=== PATIENT | female | born 1960 | race Caucasian/White ===

== ENCOUNTER 2020-05-15 09:53 | Outpatient (REF) | payer MEDICARE, MEDICAID, SELFPAY ==
[2020-05-15 13:34] LABS: MANUAL DIFF FLAG NO
[2020-05-15 13:46] LABS: Basophils Absolute Auto 0.1 X10*3/uL (0.0-0.2); Basophils Percent Auto 1.1 % (0-2); Eosinophils Absolute Auto 0.4 X10*3/uL (0.0-0.4); Eosinophils Percent Auto 5.6 % (0-4); Hematocrit 42.8 % (37-47); Hemoglobin 14.1 g/dl (12.0-16.0); Imm Gran Abs Auto 0.02 X10*3/uL (0.00-0.03); Imm Gran Pct Auto 0.3 % (0.0-0.4); Lymphocytes Absolute Auto 2.1 X10*3/uL (1.2-4.9); Mean Corpuscular HGB Conc 32.9 g/dl (31.0-35.0); Mean Corpuscular Hemoglobin 29.3 pg (27.0-33.0); Mean Platelet Volume 10.9 fL (9.4-12.3); Monocytes Absolute Auto 0.3 X10*3/uL (0.1-1.2); Monocytes Percent Auto 5.2 % (2-11); Neutrophils Absolute Auto 3.3 X10*3/uL (2.0-8.3); Neutrophils Percent Auto 53.8 % (45-73); Platelet Count 226 X10*3/uL (160-400); Red Blood Count 4.81 X10*6/uL (4.20-5.50); Red Cell Distribution Width 13.3 % (11.0-16.0); White Blood Count 6.2 X10*3/uL (4.8-10.8)
[2020-05-15 14:19] LABS: Amylase 89 U/L (28-100)
== END 2020-05-15 09:54 | disposition home or self-care (01) ==
LOC: HO.10HDL 09:53
PROVIDERS: Visit Provider Internal Medicine
DX: R59.0 Localized enlarged lymph nodes (principal)
CPT/HCPCS: 36415; 82150; 85025; 86140

== ENCOUNTER 2020-06-17 14:04 | Outpatient (REF) | payer MEDICARE, MEDICAID, SELFPAY ==
[2020-06-17 14:59] LABS: Influenza A PCR NEGATIVE (Negative); Influenza B PCR NEGATIVE (Negative); Resp Syncy Virus RNA Qual PCR NEGATIVE (Negative); SARS COV2 PCR INHOUSE NEGATIVE (Negative)
== END 2020-06-17 14:05 | disposition home or self-care (01) ==
LOC: HO.LNP 14:04
PROVIDERS: Visit Provider Internal Medicine
DX: Z20.828 Contact with and (suspected) exposure to other viral communicable diseases (principal); R07.9 Chest pain, unspecified; R05 Cough; M79.10 Myalgia, unspecified site
CPT/HCPCS: 0241U

== ENCOUNTER 2020-06-18 12:31 | Outpatient (REF) | payer MEDICARE, MEDICAID, SELFPAY ==
--- NOTE | 2020-06-18 12:38 | XR_ITS ---
EXAMINATION: XR CHEST CLINICAL INFORMATION: Chest pain, coughing. COMPARISON: None TECHNIQUE: 2 views of the chest were obtained. FINDINGS: No significant abnormality is noted involving the heart, lungs, mediastinum, bony thorax or soft tissues. XR/XR chest 2V IMPRESSION: Unremarkable chest examination.
== END 2020-06-18 12:32 | disposition home or self-care (01) ==
LOC: HO.XRAY 12:31
PROVIDERS: PCP Internal Medicine; Visit Provider Internal Medicine
DX: R07.9 Chest pain, unspecified (principal); R05 Cough
CPT/HCPCS: 71046

== ENCOUNTER 2020-06-24 10:42 | Outpatient (REF) | payer MEDICARE, MEDICAID, SELFPAY | END 2020-06-24 10:43 | disposition home or self-care (01) | LOC: HO.LNP 10:42 | PROVIDERS: Visit Provider Internal Medicine | DX: Z20.828 Contact with and (suspected) exposure to other viral communicable diseases (principal) | CPT/HCPCS: U0003 ==

== ENCOUNTER 2020-07-09 10:29 | Outpatient (REF) | payer MEDICARE, MEDICAID, SELFPAY ==
[2020-07-10 09:31] LABS: BV Int Neg Control Negative (Negative); BV Int Pos Control Positive (Positive)
== END 2020-07-09 10:30 | disposition home or self-care (01) ==
LOC: HO.LAB 10:29
PROVIDERS: PCP Internal Medicine; Visit Provider Obstetrics & Gynecology
DX: Z01.419 Encounter for gynecological examination (general) (routine) without abnormal findings (principal); N84.1 Polyp of cervix uteri; B96.89 Other specified bacterial agents as the cause of diseases classified elsewhere; N76.0 Acute vaginitis
CPT/HCPCS: 87480; 87510; 87660; 88305

== ENCOUNTER → 2020-07-16 11:20 | Outpatient (BNVA) | payer MEDICARE, MEDICAID, SELFPAY | PROVIDERS: PCP Internal Medicine; Visit Provider Obstetrics & Gynecology | DX: Z13.89 Encounter for screening for other disorder (principal) | CPT/HCPCS: Q3014 ==

== ENCOUNTER → 2020-07-29 10:57 | Outpatient (BNVA) | payer MEDICARE, MEDICAID, SELFPAY | PROVIDERS: PCP Internal Medicine; Visit Provider Obstetrics & Gynecology | DX: N95.0 Postmenopausal bleeding (principal) | CPT/HCPCS: 99212 ==

== ENCOUNTER 2020-08-05 11:11 | Outpatient (REF) | payer MEDICARE, MEDICAID, SELFPAY ==
--- NOTE | ~2020-08-05 | US_ITS ---
EXAMINATION: PELVIC ULTRASOUND CLINICAL INFORMATION: Postmenopausal bleeding COMPARISON: Previous pelvic ultrasound September [address] of the abdomen and pelvis January 2020 TECHNIQUE: Transabdominal and transvaginal pelvic ultrasound was performed. Transvaginal exam was performed for better visualization of the uterus and ovaries. FINDINGS: The uterus is anteverted and measures 7.2 x 3 x 4.7 cm in dimension. There is a 1 x 0.8 x 0.9 cm hypoechoic lesion in the left uterine body suggestive of an intramural fibroid. No other focal uterine lesion is seen. Endometrial thickness is normal estimated at 0.1 cm. The ovaries are normal-appearing. The right ovary measures 1.8 x 1.9 x 1.2 cm in the left ovary measures 1.3 x 1.5 x 1.1 cm. There is no fluid in the pelvis. US/US pelvic complete IMPRESSION: Small stable uterine fibroid. Normal thickness endometrium. Normal-appearing ovaries.
--- NOTE | ~2020-08-05 | US_ITS ---
EXAMINATION: PELVIC ULTRASOUND CLINICAL INFORMATION: Postmenopausal bleeding COMPARISON: Previous pelvic ultrasound September [address] of the abdomen and pelvis January 2020 TECHNIQUE: Transabdominal and transvaginal pelvic ultrasound was performed. Transvaginal exam was performed for better visualization of the uterus and ovaries. FINDINGS: The uterus is anteverted and measures 7.2 x 3 x 4.7 cm in dimension. There is a 1 x 0.8 x 0.9 cm hypoechoic lesion in the left uterine body suggestive of an intramural fibroid. No other focal uterine lesion is seen. Endometrial thickness is normal estimated at 0.1 cm. The ovaries are normal-appearing. The right ovary measures 1.8 x 1.9 x 1.2 cm in the left ovary measures 1.3 x 1.5 x 1.1 cm. There is no fluid in the pelvis. US/US transvaginal IMPRESSION: Small stable uterine fibroid. Normal thickness endometrium. Normal-appearing ovaries.
== END 2020-08-05 11:12 | disposition home or self-care (01) ==
LOC: HO.US 11:11
PROVIDERS: PCP Internal Medicine; Visit Provider Obstetrics & Gynecology
DX: N95.0 Postmenopausal bleeding (principal)
CPT/HCPCS: 76830; 76856

== ENCOUNTER → 2020-08-20 11:36 | Outpatient (BNVA) | payer MEDICARE, MEDICAID, SELFPAY | PROVIDERS: PCP Internal Medicine; Visit Provider Obstetrics & Gynecology | CPT/HCPCS: Q3014 ==

== ENCOUNTER 2021-04-07 10:40 | Outpatient (REF) | payer OTHER, MEDICARE, MEDICAID, SELFPAY ==
--- NOTE | ~2021-04-07 | XR_ITS ---
EXAMINATION: XR CERVICAL SPINE CLINICAL INFORMATION: Neck and right arm pain. COMPARISON: None TECHNIQUE: 6 views of the cervical spine, inclusive of flexion and extension views, were obtained. FINDINGS: There is straightening of the normal cervical lordosis with normal spinal alignment. Mild to moderate multilevel degenerative changes are seen most pronounced at C5-C6 and C6-C7 with disc space narrowing and marginal osteophyte formation. Mild bilateral neural foraminal narrowing is seen from C4-C5 to C6-C7. The facet joints are unremarkable. There is no acute fracture. The odontoid process is intact. The spinous processes are intact. The prevertebral soft tissues are unremarkable. XR/XR cervical spine min 6V IMPRESSION: 1. Straightening of the normal cervical lordosis may be secondary to positioning and/or muscle spasm. 2. Mild to moderate multilevel spondylosis without overt acute abnormality.
== END 2021-04-07 10:41 | disposition home or self-care (01) ==
LOC: HO.XRAY 10:40
PROVIDERS: PCP Internal Medicine; Visit Provider Internal Medicine
DX: M54.2 Cervicalgia (principal)
CPT/HCPCS: 72052

== ENCOUNTER 2021-04-10 07:19 | Outpatient (REF) | payer OTHER, MEDICARE, MEDICAID, SELFPAY ==
--- NOTE | ~2021-04-10 | MR_ITS ---
EXAMINATION: MR CERVICAL SPINE WITHOUT CONTRAST CLINICAL INFORMATION: Radiculopathy. Right upper extremity pain. Abnormal radiograph. COMPARISON: Cervical spine radiographs 04/07/2021. TECHNIQUE: MRI of the cervical spine was obtained using routine sequences without contrast. FINDINGS: There is nonspecific straightening of the cervical lordosis. Alignment is otherwise normal. Vertebral body heights are preserved. No acute bone marrow signal changes. There is no well marginated intraosseous hemangioma of the C6 vertebral body. Bone marrow signal intensity is otherwise unremarkable. There is slight loss of intervertebral disc height and T2 signal intensity at multiple levels related to disc degeneration. There is no cord compression or abnormal intramedullary signal changes. The cervicomedullary junction are normal. No acute bone marrow signal changes. The occipital condyles and lateral C1 masses are intact. There is degenerative arthrosis of the atlantodental joint. C1-C2 articular facets are unremarkable. At C2-C3 the annular contour is normal. No canal or neuroforaminal compromise. At C3-C4 the annular contour is normal. No canal or neuroforaminal compromise. At C4-C5 there is a small central protrusion superimposed upon a bulging disc. No canal stenosis. Uncovertebral joint spurring causes mild right neuroforaminal encroachment. At C5-C6 there is a bulging disc. Mild canal stenosis. Uncovertebral joint spurring and facet degenerative change causes mild bilateral neuroforaminal encroachment. At C6-C7 there is a bulging disc. Mild canal stenosis. Uncovertebral joint spurring and facet degenerative change causes mild to moderate bilateral neuroforaminal encroachment. At C7-T1 the annular contour is normal. No canal or neuroforaminal compromise. Visualized soft tissues of the neck are unremarkable. MR/MR cervical spine wo con IMPRESSION: There is multilevel degenerative spondylosis of the cervical spine. Mild canal stenosis at C5-C6 and C6-C7. No cord compression or abnormal intramedullary signal changes. There are varying degrees of neuroforaminal encroachment related to uncovertebral joint spurring and facet degenerative change as described above.
== END 2021-04-10 07:20 | disposition home or self-care (01) ==
LOC: HO.MRI 07:19
PROVIDERS: Visit Provider Internal Medicine
DX: M54.12 Radiculopathy, cervical region (principal); R93.7 Abnormal findings on diagnostic imaging of other parts of musculoskeletal system
CPT/HCPCS: 72141

== ENCOUNTER 2021-04-14 12:42 | Outpatient (REF) | payer MEDICARE, MEDICAID, SELFPAY ==
--- NOTE | ~2021-04-14 | MM_ITS ---
EXAMINATION: MM SCREENING DIGITAL BREAST TOMOSYNTHESIS, BILATERAL CLINICAL INFORMATION: Screening. Asymptomatic. The lifetime risk of breast cancer based on the Tyrer-Cuzick Model is 11%. COMPARISON: Mammography: 03/05/2020, 02/28/2019, 02/18/2018 TECHNIQUE: Digital breast tomosynthesis is performed in both the craniocaudal and mediolateral oblique views along with computer-aided detection (CAD). Synthesized 2D images are generated from the tomosynthesis. FINDINGS: There are scattered areas of fibroglandular density (ACR BI-RADS breast composition Category b). There are no significant masses, abnormal calcifications, or other abnormalities. There is no architectural abnormality or developing density. Parenchymal pattern is similar to prior studies. The skin contours are smooth. MM/MM tomosynthesis screening BI IMPRESSION: No mammographic evidence of malignancy. ASSESSMENT: BI-RADS 1: Negative RECOMMENDATION: Routine annual mammography screening. This patient's information was entered into a reminder system with a target due date for their next mammogram.
== END 2021-04-14 12:43 | disposition home or self-care (01) ==
LOC: HO.MAMMO 12:42
PROVIDERS: Visit Provider Internal Medicine
DX: Z12.31 Encounter for screening mammogram for malignant neoplasm of breast (principal)
CPT/HCPCS: 77063; 77067

== ENCOUNTER 2021-05-29 09:38 | Outpatient (REF) | payer MEDICARE, MEDICAID, SELFPAY ==
--- NOTE | ~2021-05-29 | MM_ITS ---
EXAMINATION: BONE DENSITOMETRY CLINICAL INDICATION: Postmenopausal. COMPARISON: This is the patient's baseline examination. TECHNIQUE: Using a Peer5 DXA System (software version: 13.1) manufactured by [employer], dual-energy x-ray absorptiometry was performed of the lumbar spine and left hip. The images are of good technical quality. Summary results are attached. FINDINGS: AP SPINE L1-L4: BMD 1.287 g/cm2, Z-score 1.6, T-score 0.9, normal. LEFT FEMUR, NECK: BMD 0.998 g/cm2, Z-score 0.6, T-score -0.3, normal. LEFT FEMUR, TOTAL: BMD 1.050 g/cm2, Z-score 0.9, T-score 0.3, normal. IDENTIFIED RISK FACTORS: Secondary osteoporosis, menopause. HISTORY OF FRACTURE: None listed. MEDICATIONS: Vitamin D. MM/XR DEXA axial skeleton IMPRESSION: 1. DIAGNOSIS: Normal bone density based on the lowest T-score value of -0.3 in the femoral neck applying World Health Organization criteria. 2. 10-YEAR FRACTURE RISK PREDICTION, FRAX: Major osteoporotic fracture (clinical spine, forearm, hip or shoulder) 5.9%. Hip fracture 0.2%. 3. Treatment Recommendations: NOF guidelines recommend consideration for treatment in postmenopausal women and men age 50 and older presenting with the following: -A hip or vertebral (clinical or morphometric) fracture. -T-score less than or equal to -2.5 at the femoral neck or spine after appropriate evaluation to exclude secondary causes. -Low bone mass at the hip or spine and a 10-year fracture probability by FRAX of greater than or equal to 3% for hip fracture or greater than or equal to 20% for major osteoporotic fracture based on the [place] adapted WHO algorithm. 4. Other Recommendations: All treatment decisions require clinical judgment and consideration of individual patient factors, including patient preferences, comorbidities, previous drug use, risk factors not captured in the FRAX model (e.g. frailty, falls, vitamin D deficiency, increased bone turnover, interval significant decline in bone density) and possible under or overestimation of fracture risk by FRAX. FUTURE SCAN RECOMMENDATION: People with diagnosed cases of osteoporosis or at high risk for fracture should have regular bone mineral density tests. For patients eligible for Medicare, routine testing is allowed once every 2 years. The testing frequency can be increased to one year for patients who have rapidly progressing disease, those who are receiving or discontinuing medical therapy to restore bone mass, or have additional risk factors.
== END 2021-05-29 09:39 | disposition home or self-care (01) ==
LOC: HO.MAMMO 09:38
PROVIDERS: Visit Provider Internal Medicine
DX: Z13.820 Encounter for screening for osteoporosis (principal); M85.80 Other specified disorders of bone density and structure, unspecified site; Z78.0 Asymptomatic menopausal state; N95.0 Postmenopausal bleeding; Z79.899 Other long term (current) drug therapy
CPT/HCPCS: 77080

== ENCOUNTER → 2021-07-15 10:00 | Outpatient (BNVA) | payer MEDICARE, MEDICAID, SELFPAY | PROVIDERS: PCP Internal Medicine; Visit Provider Advanced Practice Midwife ==

== ENCOUNTER 2021-08-25 08:34 | Outpatient (REF) | payer MEDICARE, MEDICAID, SELFPAY ==
[2021-08-25 10:22] LABS: MANUAL DIFF FLAG NO
[2021-08-25 10:41] LABS: Alanine Aminotransferase 19 U/L (0-31); Albumin Level 4.4 g/dL (3.5-5.0); Alkaline Phosphatase 126 U/L (39-117); Anion Gap 14 (12-20); Aspartate Amino Transferase 16 U/L (5-31); Bilirubin Total 0.2 mg/dL (0.0-1.0); Blood Urea Nitrogen 15 mg/dL (9-16); Calcium 9.4 mg/dL (8.4-10.2); Carbon Dioxide 24 mmol/L (22-29); Chloride 107 mmol/L (96-108); Cholesterol 297 mg/dL; Estimated Glomerular Filt Rate 55; Glucose Fasting 104 mg/dL (60-99); HDL Cholesterol 49 mg/dL; LDL Cholesterol Calculated 210 mg/dl; Potassium 4.5 mmol/L (3.3-5.1); Sodium 140 mmol/L (135-145); Total Protein 7.1 g/dL (6.5-8.0); Triglycerides 193 mg/dL
[2021-08-25 10:56] LABS: Basophils Absolute Auto 0.1 X10*3/uL (0.0-0.2); Basophils Percent Auto 1.2 % (0-2); Eosinophils Absolute Auto 0.5 X10*3/uL (0.0-0.4); Eosinophils Percent Auto 6.9 % (0-4); Free T4 (Free Thyroxine) 0.67 ng/dL (0.71-1.85); Hematocrit 43.7 % (37.0-47.0); Hemoglobin 14.4 g/dl (12.0-16.0); Imm Gran Abs Auto 0.01 X10*3/uL (0.00-0.03); Imm Gran Pct Auto 0.1 % (0.0-0.4); Lymphocytes Absolute Auto 2.9 X10*3/uL (1.2-4.9); Mean Corpuscular Hemoglobin 30.1 pg (27.0-33.0); Mean Corpuscular Volume 91.2 fL (80.0-98.0); Mean Platelet Volume 10.8 fL (9.4-12.3); Monocytes Absolute Auto 0.4 X10*3/uL (0.1-1.2); Monocytes Percent Auto 5.4 % (2-11); Neutrophils Absolute Auto 3.5 x10*3/uL (2.0-8.3); Neutrophils Percent Auto 47.4 % (45-73); Platelet Count 242 X10*3/uL (160-400); Red Blood Count 4.79 X10*6/uL (4.20-5.50); Thyroid Stimulating Hormone 62.49 uIU/mL (0.32-4.0); White Blood Count 7.4 X10*3/uL (4.8-10.8)
== END 2021-08-25 08:35 | disposition home or self-care (01) ==
LOC: HO.10HDL 08:34
PROVIDERS: Visit Provider Internal Medicine
DX: E03.9 Hypothyroidism, unspecified (principal); E78.00 Pure hypercholesterolemia, unspecified; M19.90 Unspecified osteoarthritis, unspecified site; K21.9 Gastro-esophageal reflux disease without esophagitis
CPT/HCPCS: 36415; 80053; 80061; 84439; 84443; 85025

== ENCOUNTER 2021-09-19 10:05 | Outpatient (REF) | payer MEDICARE, MEDICAID, SELFPAY ==
[2021-09-19 11:33] LABS: Free T4 (Free Thyroxine) 2.07 ng/dL (0.71-1.85)
[2021-09-20 10:27] LABS: Triiodothyronine T3 Free 5.2 pg/mL (2.3-4.2)
== END 2021-09-19 10:06 | disposition home or self-care (01) ==
LOC: HO.LAB 10:05
PROVIDERS: PCP Internal Medicine; Visit Provider Internal Medicine
DX: E03.9 Hypothyroidism, unspecified (principal)
CPT/HCPCS: 36415; 84439; 84443; 84481

== ENCOUNTER 2021-11-21 11:43 | Outpatient (REF) | payer MEDICARE, MEDICAID, SELFPAY ==
--- NOTE | ~2021-11-21 | XR_ITS ---
EXAMINATION: XR ELBOW, RIGHT CLINICAL INFORMATION: Fall rule out fracture COMPARISON: None TECHNIQUE: AP, lateral, and oblique views of the right elbow. FINDINGS: Mildly displaced intra-articular fracture of the radial head. Positive anterior sail sign and posterior fat pad sign confirming the fracture. There are no other fractures or dislocation. XR/XR elbow RT min 3V IMPRESSION: Mildly displaced intra-articular radial head fracture. (Referring physician staff is being called, to be alerted of the above findings and recommendations.) JR
[2021-11-21 14:08] LABS: Free T4 (Free Thyroxine) 1.51 ng/dL (0.71-1.85); Thyroid Stimulating Hormone 0.01 uIU/mL (0.32-4.0)
== END 2021-11-21 11:44 | disposition home or self-care (01) ==
LOC: HO.XRAY 11:43
PROVIDERS: PCP Internal Medicine; Visit Provider Internal Medicine
DX: E03.9 Hypothyroidism, unspecified (principal); M79.601 Pain in right arm; Z91.81 History of falling
CPT/HCPCS: 36415; 73080; 84439; 84443

== ENCOUNTER → 2021-11-26 12:49 | Outpatient (BNVA) | payer MEDICARE, MEDICAID, SELFPAY | PROVIDERS: PCP Internal Medicine; Visit Provider Physician Assistant | DX: S52.121D Displaced fracture of head of right radius, subsequent encounter for closed fracture with routine healing (principal) | CPT/HCPCS: 99202 ==

== ENCOUNTER 2021-12-10 08:14 | Outpatient (REF) | payer MEDICARE, MEDICAID, SELFPAY ==
--- NOTE | ~2021-12-10 | XR_ITS ---
EXAMINATION: XR ELBOW, RIGHT CLINICAL INFORMATION: M25.522 - Pain in right elbow. Radial head fracture on prior imaging. Follow-up. COMPARISON: Radiographs right elbow 11/21/2021. TECHNIQUE: Right elbow is imaged in 3 views. FINDINGS: There is a known intra-articular fracture lateral aspect radial head. There is no interval displacement or depression. No dislocation or destructive process. Again, there is small spur from the lateral epicondyle. Intra-articular effusion is decreased since prior exam. XR/XR elbow RT min 3V IMPRESSION: Hairline intra-articular fracture lateral radial head stable in alignment. Effusion decreased.
--- NOTE | ~2021-12-10 | XR_ITS ---
EXAMINATION: XR HAND, RIGHT CLINICAL INFORMATION: M79.641 - Pain in right hand COMPARISON: Radiographs right hand 07/13/2014 TECHNIQUE: Right hand is imaged in 3 views. FINDINGS: No acute or healing fracture, dislocation, destructive process. The ulnar variance is neutral. The carpus and MCP joints show no joint narrowing or erosive change. There are scattered degenerative changes interphalangeal joints. No erosive change. XR/XR hand RT min 3V IMPRESSION: -No fracture or dislocation. -Mild degenerative changes DIP and PIP joints.
== END 2021-12-10 08:15 | disposition home or self-care (01) ==
LOC: HO.HOSX 08:14
PROVIDERS: Visit Provider Physician Assistant
DX: M79.641 Pain in right hand (principal); M25.521 Pain in right elbow
CPT/HCPCS: 73080; 73130

== ENCOUNTER 2022-01-05 08:19 | Outpatient (REF) | payer MEDICARE, MEDICAID, SELFPAY ==
--- NOTE | ~2022-01-05 | XR_ITS ---
EXAMINATION: XR ELBOW, RIGHT CLINICAL INFORMATION: No right radial head fracture. COMPARISON: 12/10/2021 and 11/21/2021. TECHNIQUE: AP, lateral, and oblique views of the right elbow. FINDINGS: There is again noted to be an intra-articular fracture of the radial head. Lucent fracture line is still evident but not as well seen with evidence of periosteal new bone formation. There appears to have been approximately 1 mm depression of the smaller lateral fracture fragment since previous study with some periosteal new bone formation being evident. No dislocation is seen. There is no significant change in right elbow effusion. Spurs are seen about both medial and lateral epicondyles. XR/XR elbow RT min 3V IMPRESSION: Healing intra-articular fracture of the radial head with approximately 1 mm of depression of small fracture fragment. Right elbow effusion. Medial and lateral epicondylitis.
== END 2022-01-05 08:20 | disposition home or self-care (01) ==
LOC: HO.HOSX 08:19
PROVIDERS: Visit Provider Physician Assistant
DX: M25.521 Pain in right elbow (principal)
CPT/HCPCS: 73080

== ENCOUNTER 2022-04-16 11:23 | Outpatient (REF) | payer MEDICARE, MEDICAID, SELFPAY ==
--- NOTE | ~2022-04-16 | MM_ITS ---
EXAMINATION: MM SCREENING DIGITAL BREAST TOMOSYNTHESIS, BILATERAL CLINICAL INFORMATION: Screening. Asymptomatic. The lifetime risk of breast cancer based on the Tyrer-Cuzick Model is 12%. COMPARISON: Mammography: 04/14/2021 and studies dating back to 07/10/2013. TECHNIQUE: Digital breast tomosynthesis is performed in both the craniocaudal and mediolateral oblique views along with computer-aided detection (CAD). Synthesized 2D images are generated from the tomosynthesis. FINDINGS: There are scattered areas of fibroglandular density (ACR BI-RADS breast composition Category b). There is a stable parenchymal pattern of the right breast without new abnormal dominant mass or suspicious grouping of microcalcifications. Within the left breast on mediolateral oblique view only there is a density lying central aspect approximately 5 cm from the nipple measuring 1.2 x 0.8 cm in size for which spot compression view and possible ultrasound is recommended if the density is persistent. MM/MM tomosynthesis screening BI IMPRESSION: Left breast density for further evaluation. ASSESSMENT: BI-RADS 0: Incomplete - Need Additional Imaging Evaluation RECOMMENDATION: 1. Additional views of the left breast. 2. Targeted ultrasound if warranted after review of the additional views. 3. Radiology department staff will contact the patient for additional imaging. This patient's information was entered into a reminder system with a target due date for their next mammogram.
== END 2022-04-16 11:24 | disposition home or self-care (01) ==
LOC: HO.MAMMO 11:23
PROVIDERS: PCP Internal Medicine; Visit Provider Internal Medicine
DX: Z12.31 Encounter for screening mammogram for malignant neoplasm of breast (principal)
CPT/HCPCS: 77063; 77067

== ENCOUNTER 2022-04-20 15:06 | Outpatient (REF) | payer MEDICARE, MEDICAID, SELFPAY ==
--- NOTE | ~2022-04-20 | XR_ITS ---
EXAMINATION: XR CHEST CLINICAL INFORMATION: Pain on inspiration COMPARISON: June 18, 2020 TECHNIQUE: 2 views of the chest were obtained. FINDINGS: No significant abnormality is noted involving the heart, lungs, mediastinum, bony thorax or soft tissues. XR/XR chest 2V IMPRESSION: No acute disease.
[2022-04-20 18:49] LABS: D Dimer High Sensitivity 418 NG/ML
== END 2022-04-20 15:07 | disposition home or self-care (01) ==
LOC: HO.LAB 15:06
PROVIDERS: PCP Internal Medicine; Visit Provider Internal Medicine
DX: R07.1 Chest pain on breathing (principal)
CPT/HCPCS: 36415; 71046; 85379

== ENCOUNTER 2022-04-22 11:20 | Outpatient (REF) | payer MEDICARE, MEDICAID, SELFPAY ==
--- NOTE | ~2022-04-22 | CT_ITS ---
EXAMINATION: CT CHEST WITHOUT CONTRAST CLINICAL INFORMATION: Short of breath COMPARISON: Radiograph 04/20/2022. TECHNIQUE: Multidetector volumetric CT imaging of the chest was done. Axial MIP volume rendering provided. Sagittal and coronal reformatted images were obtained. This CT examination was performed using dose optimization techniques as appropriate, variously including the following: *Automated exposure control *Adjustment of mA and/or kV according to patient size (this includes techniques or standardized protocols for targeted exams where dose is matched to indication/reason for exam; i.e. extremities or head) *Use of iterative reconstruction technique DLP: 171 mGy-cm FINDINGS: GENERAL PRACTICE: Unremarkable LUNGS: The central airways are patent, with focal narrowing of the trachea at its mid course. No filling defects. No consolidation. No pneumothorax. There is a subpleural left upper lobe 0.3 cm nodule in the lingula on series 5 image 298. MEDIASTINUM: Normal heart size. No pericardial effusion. No mediastinal adenopathy. CORONARY ARTERY CALCIFICATION: None visualized on this study. PLEURA: There is no pleural effusion. No pleural mass or thickening. AXILLA: No lymphadenopathy. UPPER ABDOMEN: No acute abnormality. Cholecystectomy. OSSEOUS STRUCTURES: No acute or suspicious osseous abnormality. Mild degenerative changes throughout the spine. CT/CT chest wo IV con IMPRESSION: 1. No acute pulmonary finding. 2. 0.3 cm left upper lobe pulmonary nodule. According to the UPDATED 2017 Fleischner Society recommendations, the advised follow-up imaging for solid nodules < 6 mm is: LOW RISK PATIENT: No routine follow-up. HIGH RISK PATIENT: Optional CT at 12 months.
== END 2022-04-22 11:21 | disposition home or self-care (01) ==
LOC: HO.CT 11:20
PROVIDERS: PCP Internal Medicine; Visit Provider Internal Medicine
DX: R06.02 Shortness of breath (principal); R79.89 Other specified abnormal findings of blood chemistry
CPT/HCPCS: 71250

== ENCOUNTER 2022-04-23 14:27 | Outpatient (REF) | payer MEDICARE, MEDICAID, SELFPAY ==
--- NOTE | ~2022-04-23 | CT_ITS ---
EXAMINATION: CT ANGIOGRAM OF THE CHEST WITH AND WITHOUT CONTRAST (CT PULMONARY ANGIOGRAM FOR PE) CLINICAL INFORMATION: Elevated D-Dimer. COMPARISON: CT chest 04/22/2022. TECHNIQUE: Prior to contrast administration, noncontrast localization images were obtained. Subsequently, multidetector volumetric imaging was performed from the thoracic inlet to below the diaphragms following the administration of 65 mL Omnipaque 350 intravenous contrast. No contrast reaction reported Sagittal, coronal, and MIP oblique sagittal reformatted images were obtained on the CT workstation, uploaded to PACS, and reviewed. This CT examination was performed using dose optimization techniques as appropriate, variously including the following: *Automated exposure control *Adjustment of mA and/or kV according to patient size (this includes techniques or standardized protocols for targeted exams where dose is matched to indication/reason for exam; i.e. extremities or head) *Use of iterative reconstruction technique Total exam dose-length product 132 mGy-cm FINDINGS: QUALITY OF STUDY/CONTRAST BOLUS: Satisfactory PULMONARY ARTERIES: No central or segmental pulmonary emboli. THORACIC AORTA: No aneurysm or dissection. LUNG: No focal consolidation, worrisome nodules or masses. The 3 mm lingular nodule seen yesterday is unchanged. Atelectasis in the right middle lobe is unchanged. PLEURA: No pleural effusion or pneumothorax. MEDIASTINUM: Normal heart size. No pericardial effusion. No hilar or mediastinal lymphadenopathy. No evidence of septal bowing or right heart strain. CHEST WALL/AXILLA: No axillary or internal mammary lymphadenopathy. OSSEOUS STRUCTURES: No acute or suspicious osseous abnormality. UPPER ABDOMEN: There is a small hiatal hernia. Status post cholecystectomy. No reflux of contrast into the hepatic veins to suggest elevated right heart pressures. CT/CT angio chest PE protocol IMPRESSION: No evidence of pulmonary emboli. A 3 mm left upper lobe pulmonary nodule unchanged since yesterday. This should need no further followup. 2017 Fleischner Society Recommendations for Lung Nodule(s): Follow-Up based on size (average of long-axis and short-axis diameters). Use most suspicious nodule for followup. Single Solid low risk nodule < 6 mm: No routine followup imaging is recommended in low risk and high risk patients. These guidelines do not apply to patients younger than 35 years, immunocompromised patients, and patients with cancer. Follow up in patients with significant comorbidities as clinically warranted. For lung cancer screening, adhere to Lung-RADS guidelines. Reference: Radiology. 2017 Dec; 284(1):228-243 VTE: negative
[2022-04-23] MEDS: iohexoL 350 MG/ML 100 ML INFUS..BTL IV (15:15)
[2022-04-24 08:09] LABS: Creatinine POC 0.7 mg/dL (0.5-1.4); GFR POC > 60
== END 2022-04-23 14:28 | disposition home or self-care (01) ==
LOC: HO.CT 14:27
PROVIDERS: PCP Internal Medicine; Visit Provider Internal Medicine
DX: R06.02 Shortness of breath (principal); R79.89 Other specified abnormal findings of blood chemistry
CPT/HCPCS: 71275; 82565; Q9967

== ENCOUNTER 2022-04-29 13:08 | Outpatient (REF) | payer MEDICARE, MEDICAID, SELFPAY ==
--- NOTE | ~2022-04-29 | MM_ITS ---
EXAMINATION: MM DIAGNOSTIC DIGITAL BREAST TOMOSYNTHESIS, LEFT CLINICAL INFORMATION: Density seen on mediolateral oblique projection COMPARISON: Mammography: April 16, 2022 and studies dating back to December 04, 2015 TECHNIQUE: Digital breast tomosynthesis is performed. 2D images are generated from the tomosynthesis. The following views are obtained: 90 degree mediolateral imaging and spot compression mediolateral oblique image. FINDINGS: There are scattered areas of fibroglandular density (ACR BI-RADS breast composition Category b). Additional views show no significant mass, architectural abnormality, or abnormal calcifications. Results are provided to the patient at time of visit by the technologist. MM/MM tomosynthesis added views L IMPRESSION: No persistent suspicious abnormality appreciated. ASSESSMENT: BI-RADS 1: Negative RECOMMENDATION: Routine annual mammography screening. This patient's information was entered into a reminder system with a target due date for their next mammogram.
== END 2022-04-29 13:09 | disposition home or self-care (01) ==
LOC: HO.MAMMO 13:08
PROVIDERS: PCP Internal Medicine; Visit Provider Internal Medicine
DX: R92.2 Inconclusive mammogram (principal)
CPT/HCPCS: 77061; 77065

== ENCOUNTER 2022-09-09 10:46 | Outpatient (REF) | payer MEDICARE, MEDICAID, SELFPAY ==
[2022-09-09 14:31] LABS: Free T4 (Free Thyroxine) 1.76 ng/dL (0.71-1.85); Thyroid Stimulating Hormone 0.02 uIU/mL (0.32-4.0)
== END 2022-09-09 10:47 | disposition home or self-care (01) ==
LOC: HO.10HDL 10:46
PROVIDERS: Visit Provider Internal Medicine
DX: E03.9 Hypothyroidism, unspecified (principal)
CPT/HCPCS: 36415; 84439; 84443

== ENCOUNTER → 2022-10-14 10:55 | Outpatient (BNVA) | payer MEDICARE, MEDICAID, SELFPAY | PROVIDERS: PCP Internal Medicine; Visit Provider Advanced Practice Midwife ==

== ENCOUNTER 2022-11-24 10:59 | Outpatient (REF) | payer MEDICARE, MEDICAID, SELFPAY ==
[2022-11-24 13:54] LABS: Free T4 (Free Thyroxine) 1.52 ng/dL (0.71-1.85); Thyroid Stimulating Hormone 0.01 uIU/mL (0.32-4.0)
== END 2022-11-24 11:00 | disposition home or self-care (01) ==
LOC: HO.10HDL 10:59
PROVIDERS: Visit Provider Internal Medicine
DX: E03.9 Hypothyroidism, unspecified (principal)
CPT/HCPCS: 36415; 84439; 84443

== ENCOUNTER 2022-12-16 11:30 | Outpatient (REF) | payer MEDICARE, MEDICAID, SELFPAY ==
[2022-12-16 13:37] LABS: Appearance Urine Clear; Color Urine Dark Yellow; Glucose Urine UA Negative (Negative); Leukocyte Esterase Urine Large (3+) (Negative); Nitrite Urine Positive (Negative); Specific Gravity - Urine <= 1.005 (1.005-1.025); UMIC TRIGGER UACC YES; Urine Blood Small (1+) (Negative); Urine Ketones Negative (Negative); Urine Protein Negative (Neg-Trace)
[2022-12-16 13:51] LABS: Bacteria Urine Trace (None Seen); Hyaline Casts Urine 0-2 /LPF (0-2); RBC Urine 0-2 /HPF (0-2); Squamous Epithelial Cell Urine 0-2 /HPF (0-2); UACC Culture Trigger YES; WBC Clumps Urine Present; WBC Urine >50 /HPF (0-5)
== END 2022-12-16 11:31 | disposition home or self-care (01) ==
LOC: HO.10HDLNP 11:30
PROVIDERS: Visit Provider Internal Medicine
DX: R30.0 Dysuria (principal)
CPT/HCPCS: 81001; 87086

== ENCOUNTER 2023-01-05 10:21 | Outpatient (REF) | payer MEDICARE, MEDICAID, SELFPAY ==
[2023-01-05 11:42] LABS: Free T4 (Free Thyroxine) 1.26 ng/dL (0.71-1.85); Thyroid Stimulating Hormone 0.02 uIU/mL (0.32-4.0)
== END 2023-01-05 10:22 | disposition home or self-care (01) ==
LOC: HO.10HDL 10:21
PROVIDERS: Visit Provider Internal Medicine
DX: E03.9 Hypothyroidism, unspecified (principal)
CPT/HCPCS: 36415; 84439; 84443

== ENCOUNTER 2023-02-17 11:52 | Outpatient (REF) | payer MEDICARE, MEDICAID, SELFPAY ==
[2023-02-17 13:19] LABS: Free T4 (Free Thyroxine) 1.31 ng/dL (0.71-1.85); Thyroid Stimulating Hormone 0.03 uIU/mL (0.32-4.0)
== END 2023-02-17 11:53 | disposition home or self-care (01) ==
LOC: HO.LAB 11:52
PROVIDERS: PCP Internal Medicine; Visit Provider Internal Medicine
DX: E03.9 Hypothyroidism, unspecified (principal)
CPT/HCPCS: 36415; 84439; 84443

== ENCOUNTER 2023-03-03 10:14 | Outpatient (REF) | payer MEDICARE, MEDICAID, SELFPAY ==
--- NOTE | ~2023-03-03 | US_ITS ---
EXAMINATION: US SOFT TISSUE HEAD/NECK CLINICAL INFORMATION: Hypothyroidism. COMPARISON: CT angiogram chest 04/23/2022. TECHNIQUE: Linear transducer gilman-scale and color Doppler examination of the thyroid bed and surrounding soft tissue. FINDINGS: Status post thyroidectomy. No mass is seen in the thyroid bed. No abnormal lymphadenopathy is detected. US/US thyroid IMPRESSION: Status post thyroidectomy.
== END 2023-03-03 10:15 | disposition home or self-care (01) ==
LOC: HO.US 10:14
PROVIDERS: PCP Internal Medicine; Visit Provider Internal Medicine
DX: E03.9 Hypothyroidism, unspecified (principal)
CPT/HCPCS: 76536

== ENCOUNTER 2023-04-20 11:25 | Outpatient (REF) | payer MEDICARE, MEDICAID, SELFPAY | END 2023-04-20 11:26 | disposition home or self-care (01) | LOC: HO.MAMMO 11:25 | PROVIDERS: PCP Internal Medicine; Visit Provider Internal Medicine | DX: Z12.31 Encounter for screening mammogram for malignant neoplasm of breast (principal) | CPT/HCPCS: 77063; 77067 ==

== ENCOUNTER → 2023-04-20 11:30 | Outpatient (BNV) | payer MEDICARE, MEDICAID, SELFPAY | PROVIDERS: PCP Internal Medicine; Visit Provider Radiology Diagnostic Radiology | DX: Z12.31 Encounter for screening mammogram for malignant neoplasm of breast (principal) | CPT/HCPCS: 77063; 77067 ==

== ENCOUNTER 2023-05-11 08:37 | Outpatient (REF) | payer MEDICARE, MEDICAID, SELFPAY ==
[2023-05-11 10:32] LABS: MANUAL DIFF FLAG NO
[2023-05-11 10:40] LABS: Basophils Absolute Auto 0.1 X10*3/uL (0.0-0.2); Basophils Percent Auto 0.6 % (0-2); Eosinophils Absolute Auto 0.3 X10*3/uL (0.0-0.4); Eosinophils Percent Auto 2.8 % (0-4); Hemoglobin 13.1 g/dl (12.0-16.0); Imm Gran Abs Auto 0.02 X10*3/uL (0.00-0.03); Imm Gran Pct Auto 0.2 % (0.0-0.4); Lymphocytes Absolute Auto 1.7 X10*3/uL (1.2-4.9); Mean Corpuscular HGB Conc 32.8 g/dl (31.0-35.0); Mean Corpuscular Hemoglobin 28.4 pg (27.0-33.0); Mean Corpuscular Volume 86.8 fL (80.0-98.0); Mean Platelet Volume 10.5 fL (9.4-12.3); Monocytes Absolute Auto 0.6 X10*3/uL (0.1-1.2); Neutrophils Absolute Auto 6.2 x10*3/uL (2.0-8.3); Neutrophils Percent Auto 70.4 % (45-73); Platelet Count 171 X10*3/uL (160-400); Red Blood Count 4.61 X10*6/uL (4.20-5.50); Red Cell Distribution Width 13.2 % (11.0-16.0); White Blood Count 8.9 X10*3/uL (4.8-10.8)
[2023-05-11 11:01] LABS: Alanine Aminotransferase 30 U/L (0-31); Albumin Level 4.1 g/dL (3.5-5.0); Alkaline Phosphatase 79 U/L (39-117); Anion Gap 9 (12-20); Aspartate Amino Transferase 21 U/L (5-31); Bilirubin Total 0.3 mg/dL (0.0-1.0); Blood Urea Nitrogen 11 mg/dL (9-16); Calcium 9.2 mg/dL (8.4-10.2); Carbon Dioxide 28 mmol/L (22-29); Chloride 109 mmol/L (96-108); Cholesterol 183 mg/dL (<200); Estimated Glomerular Filt Rate > 60; Glucose Fasting 99 mg/dL (60-99); HDL Cholesterol 50 mg/dL (>40); LDL Cholesterol Calculated 106 mg/dL (<100); Potassium 3.9 mmol/L (3.3-5.1); Sodium 142 mmol/L (135-145); Total Protein 6.8 g/dL (6.5-8.0); Triglycerides 139 mg/dL (<150)
[2023-05-11 11:19] LABS: Free T4 (Free Thyroxine) 1.11 ng/dL (0.71-1.85); Thyroid Stimulating Hormone 0.02 uIU/mL (0.32-4.0)
== END 2023-05-11 08:38 | disposition home or self-care (01) ==
LOC: HO.10HDL 08:37
PROVIDERS: Visit Provider Internal Medicine
DX: E03.9 Hypothyroidism, unspecified (principal); E78.00 Pure hypercholesterolemia, unspecified; K21.9 Gastro-esophageal reflux disease without esophagitis
CPT/HCPCS: 36415; 80053; 80061; 84439; 84443; 85025

== ENCOUNTER 2023-07-12 15:08 | Outpatient (REF) | payer MEDICARE, MEDICAID, SELFPAY ==
[2023-07-12 18:17] LABS: Free T4 (Free Thyroxine) 1.34 ng/dL (0.71-1.85); Thyroid Stimulating Hormone 0.16 uIU/mL (0.32-4.0)
== END 2023-07-12 15:09 | disposition home or self-care (01) ==
LOC: HO.LAB 15:08
PROVIDERS: PCP Internal Medicine; Visit Provider Internal Medicine
DX: E03.9 Hypothyroidism, unspecified (principal)
CPT/HCPCS: 36415; 84439; 84443

== ENCOUNTER 2023-07-21 15:38 | Outpatient (REF) | payer MEDICARE, MEDICAID, SELFPAY ==
[2023-07-21 15:46] LABS: MANUAL DIFF FLAG NO
[2023-07-21 16:27] LABS: Basophils Absolute Auto 0.1 X10*3/uL (0.0-0.2); Basophils Percent Auto 0.9 % (0-2); Eosinophils Absolute Auto 0.3 X10*3/uL (0.0-0.4); Eosinophils Percent Auto 4.3 % (0-4); Hematocrit 41.1 % (37.0-47.0); Hemoglobin 13.4 g/dl (12.0-16.0); Imm Gran Abs Auto 0.01 X10*3/uL (0.00-0.03); Imm Gran Pct Auto 0.2 % (0.0-0.4); Lymphocytes Absolute Auto 2.2 X10*3/uL (1.2-4.9); Lymphocytes Percent Auto 34.5 % (20-40); Mean Corpuscular HGB Conc 32.6 g/dl (31.0-35.0); Mean Corpuscular Hemoglobin 28.6 pg (27.0-33.0); Mean Corpuscular Volume 87.6 fL (80.0-98.0); Mean Platelet Volume 10.8 fL (9.4-12.3); Monocytes Absolute Auto 0.4 X10*3/uL (0.1-1.2); Monocytes Percent Auto 6.3 % (2-11); Neutrophils Absolute Auto 3.5 x10*3/uL (2.0-8.3); Neutrophils Percent Auto 53.8 % (45-73); Platelet Count 218 X10*3/uL (160-400); Red Blood Count 4.69 X10*6/uL (4.20-5.50); Red Cell Distribution Width 13.7 % (11.0-16.0); White Blood Count 6.5 X10*3/uL (4.8-10.8)
[2023-07-21 16:29] LABS: Appearance Urine Cloudy; Color Urine Yellow; Glucose Urine UA Negative (Negative); Leukocyte Esterase Urine Moderate (2+) (Negative); Nitrite Urine Negative (Negative); PH 5.5 (5.0-9.0); Specific Gravity - Urine <= 1.005 (1.005-1.025); UMIC TRIGGER UACC YES; Urine Blood Negative (Negative); Urine Ketones Negative (Negative); Urine Protein Negative (Neg-Trace)
[2023-07-21 16:33] LABS: Bacteria Urine 1+ (None Seen); Hyaline Casts Urine 0-2 /LPF (0-2); RBC Urine 0-2 /HPF (0-2); UACC Culture Trigger YES
[2023-07-21 16:54] LABS: Alanine Aminotransferase 22 U/L (0-31); Albumin Level 4.4 g/dL (3.5-5.0); Alkaline Phosphatase 83 U/L (39-117); Anion Gap 11 (12-20); Aspartate Amino Transferase 19 U/L (5-31); Bilirubin Total 0.3 mg/dL (0.0-1.0); Blood Urea Nitrogen 13 mg/dL (9-16); C Reactive Protein 0.21 mg/dL (< or = 0.50); Calcium 9.8 mg/dL (8.4-10.2); Carbon Dioxide 27 mmol/L (22-29); Chloride 107 mmol/L (96-108); Estimated Glomerular Filt Rate > 60; Glucose Random 111 mg/dL (60-115); Lipase 37 U/L (8-78); Potassium 4.1 mmol/L (3.3-5.1); Sodium 141 mmol/L (135-145); Total Protein 7.2 g/dL (6.5-8.0)
== END 2023-07-21 15:39 | disposition home or self-care (01) ==
LOC: HO.LAB 15:38
PROVIDERS: PCP Internal Medicine; Visit Provider Internal Medicine
DX: E03.9 Hypothyroidism, unspecified (principal); R11.0 Nausea
CPT/HCPCS: 36415; 80053; 81001; 83690; 85025; 86140; 87086

== ENCOUNTER 2023-09-08 05:54 | Outpatient (REF) | payer MEDICARE, MEDICAID, SELFPAY ==
--- NOTE | ~2023-09-08 | XR_ITS ---
EXAMINATION: XR KNEE, RIGHT CLINICAL INFORMATION: Knee pain COMPARISON: None available. TECHNIQUE: Four views of the right knee. FINDINGS: On standing knee view, knee joints are fairly symmetrical in position. Mild right tricompartment spurring. Mild right medial knee joint narrowing. No fracture, dislocation or joint effusion. XR/XR knee RT 3V IMPRESSION: Mild degenerative changes right knee.
== END 2023-09-08 05:55 | disposition home or self-care (01) ==
LOC: HO.HOSX 05:54
PROVIDERS: Visit Provider Physician Assistant
DX: M17.11 Unilateral primary osteoarthritis, right knee (principal)
CPT/HCPCS: 20610; 73562; 99212; J1040

== ENCOUNTER 2023-09-08 12:37 | Outpatient (AMB) | payer MEDICARE, MEDICAID, SELFPAY ==
--- NOTE | 2023-09-08 12:43 | A.OFFVIS_ITS ---
Intake Vital Signs 09/08/23 12:48 Height 5 ft 1 in Weight 156 lb BMI 29.5 Intake Visit Reasons: new prob- right knee pain Intake Note: Bela henderson 62 year old female presents today for an evaluation of right knee pain. Patient reports that she has had pain on and off for 3 months now, but the last 3 weeks have gotten significantly worse. Pain is felt on the medial aspect of the knee. Denies any numbness and tingling. Denies injury. She is taking tylenol which helps temporarily as well as a CBD salve Allergies gabapentin [GABAPENTIN] Allergy (Severe, Verified 10/14/22 11:05) CHEST PAIN meloxicam Allergy (Unknown, Verified 10/14/22 11:09) Unknown From FLAGYL Allergy (Intermediate, Uncoded 01/05/22 11:24) GI UPSET Medication List - Last Reconciled 09/08/23 by Shyanne Patino PA-C atorvastatin 10 mg PO DAILY dicyclomine 20 mg PO QID diphenhydramine HCl 50 mg PO DAILY levothyroxine (Synthroid) 200 mcg PO DAILY omeprazole 40 mg PO QAM HPI new prob- right knee pain HPI Details 62-year-old female [facility] of right knee pain for 3 months. She states she has intermittent pain in her right knee which has been worse for the last 3 weeks. She also reports she feels as her knee will give out and she is unable to put pressure on her knee due to the pain. She denies any numbness, tingling, catching or locking in her knee. She has not had any previous injury. She finds transient relief with Tylenol and CBD salve. [facility] Medical History Colonic polyp Degenerative disc disease Hypothyroidism Hypercholesterolemia Surgical History History of foot surgery History of surgery on wrist History of bilateral tubal ligation History of cholecystectomy History of appendectomy History of thyroidectomy Family History Father CAD (coronary artery disease) Mother COPD (chronic obstructive pulmonary disease) Sister Breast cancer, Onset Age: 57 Maternal Grandmother Stroke Aneurysm Paternal Uncle Colon cancer Social History Alcohol intake: never Patient Tobacco Use Status: Never used Tobacco Current occupational status: disabled 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 Tenderness along the medial joint line and along the pes bursa. Full ROM with crepitus. Negative Phylicia?s. No ligamentous laxity. NVI. Office Procedures Joint Injection/Drain Joint Injection/Drain Primary Site: right knee Prep: site was prepped using aseptic technique, ethochloride spray was applied and injection warnings given Injected: 80 mg of, DepoMedrol, with 8 mL of, 1% plain lidocaine and in the joint Approach Used: anterolateral Procedure: The patient tolerated the procedure well and there was some relief with the local anesthesia Coding 81006 - Glenohumeral/Tronchanteric Bursa/Intraarticular Procedure code (CPT) selection complete Results Reviewed Results Reviewed: Xrays were obtained in the office today and personally reviewed by me of the right knee show moderate medial compartment oa Assessment & Plan Assessment & Plan (1) Osteoarthritis of right knee: Code(s): M17.11 - Unilateral primary osteoarthritis, right knee Qualifiers: Osteoarthritis type: primary Qualified Code(s): M17.11 - Unilateral primary osteoarthritis, right knee Plan We discussed options today which include steroid injection. They did consent to move forward with the right knee injection, which was tolerated well. I recommended rest, ice and elevation and OTC anti-inflammatories PRN for discomfort. If symptoms persist or worsens over the next 6-8 weeks, patient will contact the office and I will order an MRI of the right knee, otherwise, f/u prn. Orders: Orders XR knee standing BI Today M25.561 - Pain in right knee, M25.562 - Pain in left knee Patient Instructions: Scribed for Shyanne Patino PA-C, by Brian Bautista senior medical transcriptionist, on 09/08/2023 at 12:45 PM EST. I, Shyanne Patino PA-C, have personally reviewed and agree with the information entered by the scribe. Coding Level of Care Code Est Pt Level 3 (50969) Diagnoses Primary osteoarthritis of right knee M17.11 Osteoarthritis type: primary CPT Codes Coding - Joint 7: 09776 - Glenohumeral/Tronchanteric Bursa/Intraarticular ([id number])
[2023-09-08 12:48] VITALS: BMI 29.5
== END 2023-09-08 14:01 | disposition home or self-care (01) ==
PROVIDERS: PCP Internal Medicine; Visit Provider Physician Assistant
DX: M17.11 Unilateral primary osteoarthritis, right knee (principal)
CPT/HCPCS: 20610; 99213

== ENCOUNTER 2023-09-29 13:27 | Outpatient (AMB) | payer MEDICARE, MEDICAID, SELFPAY ==
--- NOTE | 2023-09-29 13:39 | A.OFFVIS_ITS ---
Intake Vital Signs 09/29/23 13:42 Height 5 ft 1 in Weight 156 lb BMI 29.5 Intake Visit Reasons: ov- right knee pain Intake Note: Bela henderson 62 year old female presents today for a follow up of right knee pain, last injection on 09/08/23. Patient reports her pain has increased since last injection. States sharp pain at the medial aspect of knee. She was intermittent swelling and knee becomes warm to the touch. Finds little to no relief with Tylenol. She is requesting to have an MRI. Allergies gabapentin [GABAPENTIN] Allergy (Severe, Verified 09/29/23 13:42) CHEST PAIN meloxicam Allergy (Unknown, Verified 09/29/23 13:42) Unknown From FLAGYL Allergy (Intermediate, Uncoded 09/29/23 13:42) GI UPSET HPI ov- right knee pain HPI Details 62-year-old female who returns to the [facility] today for a follow-up of right knee pain. She had her last injection on 09/08/23 did provide some relief for about a day. She states her pain returned about a day and a half after the injection and is localized over the medial aspect of the knee. The pain originates around the patella and then extends into the proximal tibia. She feels some sensation of instability at times where her knee will want to give out. No other concerns today. [facility] Medical History Colonic polyp Degenerative disc disease Hypothyroidism Hypercholesterolemia Surgical History History of foot surgery History of surgery on wrist History of bilateral tubal ligation History of cholecystectomy History of appendectomy History of thyroidectomy Family History Father CAD (coronary artery disease) Mother COPD (chronic obstructive pulmonary disease) Sister Breast cancer, Onset Age: 57 Maternal Grandmother Stroke Aneurysm Paternal Uncle Colon cancer Social History Alcohol intake: never Patient Tobacco Use Status: Never used Tobacco Current occupational status: disabled 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 Tenderness along the medial joint line and along the pes bursa. Full ROM with crepitus. Negative Phylicia?s. No ligamentous laxity. NVI. Assessment & Plan Assessment & Plan (1) Osteoarthritis of right knee: Code(s): M17.11 - Unilateral primary osteoarthritis, right knee Qualifiers: Osteoarthritis type: primary Qualified Code(s): M17.11 - Unilateral primary osteoarthritis, right knee Plan An MRI of the right knee was ordered to further evaluate the cartilage and surrounding structures. She was also fit for a genumed knee brace for support. She will see me back once the scan is complete. Patient Instructions: Scribed for Shyanne Patino PA-C, by Brian Bautista biomedical engineering director, on 09/29/2023 at 1:45 PM JOSUE. Shyanne Dickerson PA-C, have personally reviewed and agree with the information entered by the scribe. Coding Level of Care Code Est Pt Level 3 (91025) Diagnoses Primary osteoarthritis of right knee M17.11 Osteoarthritis type: primary
[2023-09-29 13:42] VITALS: BMI 29.5
== END 2023-09-29 14:30 | disposition home or self-care (01) ==
PROVIDERS: PCP Internal Medicine; Visit Provider Physician Assistant
DX: M17.11 Unilateral primary osteoarthritis, right knee (principal)
CPT/HCPCS: 99213

== ENCOUNTER → 2023-09-29 13:27 | Outpatient (BNVA) | payer MEDICARE, MEDICAID, SELFPAY | PROVIDERS: PCP Internal Medicine; Visit Provider Physician Assistant | DX: M17.11 Unilateral primary osteoarthritis, right knee (principal) | CPT/HCPCS: 99212 ==

== ENCOUNTER 2023-11-03 18:03 | Outpatient (REF) | payer MEDICARE, MEDICAID, SELFPAY ==
--- NOTE | ~2023-11-03 | MR_ITS ---
EXAMINATION: MR KNEE WITHOUT CONTRAST, RIGHT CLINICAL INFORMATION: Knee pain. COMPARISON: X-ray the right knee August 2023 TECHNIQUE: MRI of the knee without contrast was performed using routine sequences on a high-field scanner. FINDINGS: MENISCI: Medial Meniscus: Question subtle irregularity of the tibial articular surface suspicious but not definitive for tear of the posterior horn. There also some subtle blunting of the free edge of the anterior horn which could reflect normal variation or subtle tearing. Overall findings suggest suspicious but not definitive for meniscal tear. Lateral Meniscus: There is a complete discoid lateral meniscus. There is some subtle intermediate signal possibly extending to the femoral articular surface anteriorly suspicious but not definitive for small tear. LIGAMENTS: Cruciate: Intact Collateral: Intact EXTENSOR MECHANISM: Intact ARTICULAR CARTILAGE/BONE: Patellofemoral Compartment: Mild cartilage heterogeneity of the medial trochlea and sulcus. Minimal surface regularity of the patella cartilage in the medial facet and median ridge. Overall mild patellofemoral arthrosis. Medial Compartment: There are marginal osteophytes. Is scattered cartilage heterogeneity and subchondral cystic change along the anterior portion of the weightbearing femoral condyle. There is some cartilage loss and subchondral cystic change along the anterior weightbearing tibial articular surface. Findings indicative of mild osteoarthritis. Lateral Compartment: Normal JOINT FLUID AND BURSAE: There is a mild joint effusion and synovitis. MR/MR knee RT wo con IMPRESSION: 1. Mild osteoarthritis of the patellofemoral compartment and medial compartment. 2. Mild joint effusion and synovitis. 3. Discoid lateral meniscus. Question grade 2 signal versus subtle tear along the femoral articular surface. 4. Findings in the medial meniscus suspicious but not definitive for meniscal tears.
== END 2023-11-03 18:04 | disposition home or self-care (01) ==
LOC: HO.MRI 18:03
PROVIDERS: PCP Internal Medicine; Visit Provider Physician Assistant
DX: M17.11 Unilateral primary osteoarthritis, right knee (principal)
CPT/HCPCS: 73721

== ENCOUNTER 2023-12-01 15:32 | Outpatient (AMB) | payer MEDICARE, MEDICAID, SELFPAY ==
--- OUTSIDE RECORDS SUMMARY | 2023-12-01 15:34 | XMS_ITS | Patient Health Record ---
Author Organization [facility] Address [address] [place] [address] Care Team Providers Care Fuller Brush Man Name Role Phone Tony Silva MD Primary Care Provider UnavailMasoud Fields Jr Unavailable ALLERGIES Allergen (clinical drug ingredient) Drug/Non Drug Allergy documented on EMR Reaction Allergy Type Onset Date Status gabapentin Gabapentin Unknown Drug Allergy Activ e metronidazole Metronidazole (uncoded) Unknown Allergy Active REASON FOR REFERRAL No Information MEDICATIONS Medication SIG (Take, Route, Fr equency, Duration) Notes Start Date End Date Status Synthroid 200 MCG TAKE 1 TABLET BY BERNARDO TH ONCE A DAY EXCEPT SUNDAYS Oral for 84 A ctive Dicyclomine HCl 20 MG TAKE 1 TABLET BY M OUTH 2-4 TIMES A DAY for 90 Active Omeprazole 40 MG TAKE 1 CAPSULE BY MO UT EVERY DAY 30 MINUTES BEFORE MORNING MEAL for 90 Active IMMUNIZATIONS Vaccine Route Administration Date Status Comme nts Influenza Unknown 03/29/2019 Administered Influenza Unknown 03/09/2023 Administered Influenza Unknown 09/07/2022 Refused SOCIAL HISTORY Tobacco Use: Social History Observation Description Date Details (start date - stop date) Never Smoker NA - NA Sex Assigned At : Social History Observation Description Sex Assigned At Unknown Tobacco Use/Smoking Question Answer Notes Patient is a nonsmoker Alcohol Screen Question Answer Notes Did you have a drink contain ing alcohol in the past year? Yes How often did you have a dri nk containing alcohol in the past year? Monthly or less (1 point) How many drinks did you have on a typical day when you were drinking in the past year? 1 or 2 drinks (0 point) How often did you have 6 or more drinks on one occasion in the past year? Never (0 point) Points 1 Interpretation Negative PROBLEMS Problem Type ICD Code Onset Dates Problem Status W/U Status Risk SNOMED Code Notes Problem Gastroesophageal reflux disease without esophagitis (K21.9) Active confirmed 725211882 Problem Colitis (K52.9) Active confirmed 246853 04 Problem Irritable bowel syndrome with diarrhea (K58.0) Active confirmed 287209236 VITAL SIGNS Temperature 97.1 degrees Fahrenheit 09/08/2023 Blood pressure diastolic 00 mm Hg 09/08/2023 Height 61 in 09/08/2023 Blood pressure systolic 000 mm Hg 09/08/2023 Weight 148 lbs 09/08/2023 BMI 27.96 kg/m2 09/08/2023 Encounters Encounter Location Date Provider Diagnosis [facility] [address] [place] [address] 09/08/2023 Masoud Borja Jr Gastroesophageal reflux disease without esophagitis K21.9 and Irritable bowel syndrome with diarrhea K58.0 ASSESSMENTS Encounter Date Diagnosis Assessment Notes Treatment Notes Treatment Clinical Notes 09/08/2023 Irritable bowel syndrome with diarrhea (ICD-10 - K58.0) 09/08/2023 Gastroesophageal reflux disease without esophagitis (ICD-10 - K21.9) Gastroesophageal reflux disease material was printed PLAN OF TREATMENT Future Test Test Name Order Date UPPER GI ENDOSCOPY 02/21/2020 COLONOSCOPY 02/21/2020 Next Appt Details Provider Name:Masoud baldwin Jr, 09/06/2024 09:20:00 AM, [address] [place] [address], [address], [place], [address], Insurance Providers Payer Name Payer Address Payer Phone Subscriber Number Group Number Insured Name Patient Relationship to Insured Coverage Start Date Coverage End Date MEDICARE OF [place] [address] [place] [address] [phone] [id number] [employer] Self - patient is the insured MEDICAID OF [facility] [address] [place] [address] [id number] [employer] Self - patient is the insured MEDICAL (GENERAL) HISTORY Medical History History ICD Code Colonoscopy 03/08/20, normal sigmoid biopsies. Hyperplastic polyp 10 year recall Gastroesophageal reflux dise ase, EGD 03/08/20, no H. pylori or Zhao's esophagus. thyroidectomy/Angle's thyroiditis cholecystectomy appendectomy headaches De Quervain's tenosynovitis left and rig ht with cyst on the right Surgical History Surgery Date(Month/Year) Appendectomy Cholecystectomy Tubal ligation
--- NOTE | 2023-12-01 15:59 | MHC.OFFVIS ---
Intake Visit Reasons: OV, MRI follow up R knee Allergies gabapentin [GABAPENTIN] Allergy (Severe, Verified 09/29/23 13:42) CHEST PAIN meloxicam Allergy (Unknown, Verified 09/29/23 13:42) Unknown From FLAGYL Allergy (Intermediate, Uncoded 09/29/23 13:42) GI UPSET HPI HPI OV, MRI follow up R knee: Details: 62 yo female returns for telehealth right knee - she states she continues to have pain with activity and limitations with kneeling and bending. PFSH Medical History Colonic polyp Degenerative disc disease Hypothyroidism Hypercholesterolemia Surgical History History of foot surgery History of surgery on wrist History of bilateral tubal ligation History of cholecystectomy History of appendectomy History of thyroidectomy Family History Father CAD (coronary artery disease) Mother COPD (chronic obstructive pulmonary disease) Sister Breast cancer, Onset Age: 57 Maternal Grandmother Stroke Aneurysm Paternal Uncle Colon cancer Social History Alcohol intake: never Patient Tobacco Use Status: Never used Tobacco Current occupational status: disabled 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 Sexual orientation: Straight/Heterosexual Gender identity: Female Review of Systems Const All systems reviewed & are unremarkable except as noted in HPI and below Physical Exam Resp Effort & Inspection: normal respiratory effort and able to speak in complete sentences Telehealth Telehealth Telehealth Platform: Telephone Location of provider rendering services: practice address Location of patient: address on file Patient Identification confirmed using: Name, : Yes Telehealth method: voice only Patient verbally consented to treatment: Yes Patient verbally consented to billing insurance company: Yes Patient informed of any privacy concerns related to visit: Yes Minutes spent on Phone/Video with Pt.: 10 Results Reviewed Results Reviewed: MR knee RT wo con IMPRESSION: 1. Mild osteoarthritis of the patellofemoral compartment and medial compartment. 2. Mild joint effusion and synovitis. 3. Discoid lateral meniscus. Question grade 2 signal versus subtle tear along the femoral articular surface. 4. Findings in the medial meniscus suspicious but not definitive for meniscal tears. Assessment & Plan Assessment & Plan (1) Osteoarthritis of right knee: Code(s): M17.11 - Unilateral primary osteoarthritis, right knee Category: Medical Qualifiers: Osteoarthritis type: primary Qualified Code(s): M17.11 - Unilateral primary osteoarthritis, right knee Plan We discussed options and given she has failed conservative treatment and she continues to have pain with daily activities she will return to see Dr Yadav to discuss possible surgical intervention. She is content with this plan. Coding Level of Care Code Tele Est Pt Level 3 (92603) Diagnoses Primary osteoarthritis of right knee M17.11 Osteoarthritis type: primary
== END 2023-12-01 15:35 | disposition home or self-care (01) ==
LOC: HO.HOS 15:32
PROVIDERS: PCP Internal Medicine; Visit Provider Physician Assistant
DX: M17.11 Unilateral primary osteoarthritis, right knee (principal)
CPT/HCPCS: 99441

== ENCOUNTER → 2023-12-01 15:32 | Outpatient (BNVA) | payer MEDICARE, MEDICAID, SELFPAY | PROVIDERS: PCP Internal Medicine; Visit Provider Physician Assistant ==

== ENCOUNTER 2024-01-10 10:31 | Outpatient (AMB) | payer MEDICARE, MEDICAID, SELFPAY ==
--- NOTE | 2024-01-10 10:41 | MHC.OFFVIS ---
Vital Signs 01/10/24 10:42 Height 5 ft 1 in Weight 147 lb BMI 27.8 Intake Visit Reasons: OV- RT knee post MRI discuss surg Intake Note: Bela is a 63 year old female who presents today as a new patient for a review of her right knee MRI done on 11/03/23. She was referred by Miki Patino. Allergies gabapentin [GABAPENTIN] Allergy (Severe, Verified 01/10/24 10:43) CHEST PAIN meloxicam Allergy (Unknown, Verified 01/10/24 10:43) Unknown From FLAGYL Allergy (Intermediate, Uncoded 09/29/23 13:42) GI UPSET HPI HPI OV- RT knee post MRI discuss surg: Details: Bela is a 63 year old female who presents today as a new patient for a review of her right knee MRI done on 11/03/23. She was referred by Miki Patino. She states that her pain is mild but that a few times a week she has shartp medial sided pain that stops her in her tracks. She denies locking but has to pause and move her knee gently before she can resume walking. [facility] Medical History Colonic polyp Degenerative disc disease Hypothyroidism Hypercholesterolemia Surgical History History of foot surgery History of surgery on wrist History of bilateral tubal ligation History of cholecystectomy History of appendectomy History of thyroidectomy Family History Father CAD (coronary artery disease) Mother COPD (chronic obstructive pulmonary disease) Sister Breast cancer, Onset Age: 57 Maternal Grandmother Stroke Aneurysm Paternal Uncle Colon cancer Social History Alcohol intake: never Patient Tobacco Use Status: Never used Tobacco Current occupational status: disabled 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 Site was prepped using aseptic technique. Patient tolerated the procedure well. Primary Site: right knee Approach Used: anterolateral Coding - Large joint Procedure code (CPT) selection complete Results Reviewed Results Reviewed: I personally reviewed the MR images. Extruded medial meniscus with adjacent arthritic changes Assessment & Plan Assessment & Plan (1) Degenerative tear of meniscus of right knee: Code(s): M23.306 - Other meniscus derangements, unspecified meniscus, right knee Category: Medical Plan: Psuedolocking with pain. I injected her knee and reviewed options. I recommend HEP fro strengthening and continue her daily walking activities. If her locking worsens she will return to see me. At this time however I would hold off on surgery. She will return to see me in 3 months. Coding Level of Care Code Est Pt Level 4 (77065) Diagnoses Degenerative tear of meniscus of right knee M23.306 CPT Codes Coding - Large joint: 07921 - Large joint ([id number])
[2024-01-10 10:42] VITALS: BMI 27.8
== END 2024-01-10 11:16 | disposition home or self-care (01) ==
PROVIDERS: PCP Internal Medicine; Visit Provider Orthopaedic Surgery
DX: M23.306 Other meniscus derangements, unspecified meniscus, right knee (principal)
CPT/HCPCS: 20610; 99214

== ENCOUNTER → 2024-01-10 10:31 | Outpatient (BNVA) | payer MEDICARE, MEDICAID, SELFPAY | PROVIDERS: PCP Internal Medicine; Visit Provider Orthopaedic Surgery | DX: M23.306 Other meniscus derangements, unspecified meniscus, right knee (principal); M25.561 Pain in right knee | CPT/HCPCS: 20610; 99212; J0665; J1100 ==

== ENCOUNTER 2024-04-06 10:06 | Outpatient (AMB) | payer MEDICARE, MEDICAID, SELFPAY ==
[2024-04-06 10:16] VITALS: BMI 27.8
--- NOTE | 2024-04-06 10:16 | MHC.OFFVIS ---
Vital Signs 04/06/24 10:16 Height 5 ft 1 in Weight 147 lb BMI 27.8 Intake Visit Reasons: OV- RT knee Meniscus tear Intake Note: Bela is a 63 year old female who presents today for a follow up of her right knee degenerative meniscus tear. She was instructed to continue strengthening and t return if her locking worsens. Patient reports that the right knee has been acting up i over the last few weeks. The knee ocasionally feels like it may give out on her and the pain is present all the time. Shek takes tylenol and ibuprofen PRN pain which does help Allergies gabapentin [GABAPENTIN] Allergy (Severe, Verified 01/10/24 10:43) CHEST PAIN meloxicam Allergy (Unknown, Verified 01/10/24 10:43) Unknown From FLAGYL Allergy (Intermediate, Uncoded 09/29/23 13:42) GI UPSET HPI HPI OV- RT knee Meniscus tear: Details: Bela is a 63 year old female who presents today for a follow up of her right knee degenerative meniscus tear. She was instructed to continue strengthening and t return if her locking worsens. Patient reports that the right knee has been acting up i over the last few weeks. The knee ocasionally feels like it may give out on her and the pain is present all the time. Shek takes tylenol and ibuprofen PRN pain which does help. PFSH Medical History Colonic polyp Degenerative disc disease Hypothyroidism Hypercholesterolemia Surgical History History of foot surgery History of surgery on wrist History of bilateral tubal ligation History of cholecystectomy History of appendectomy History of thyroidectomy Family History Father CAD (coronary artery disease) Mother COPD (chronic obstructive pulmonary disease) Sister Breast cancer, Onset Age: 57 Maternal Grandmother Stroke Aneurysm Paternal Uncle Colon cancer Social History Alcohol intake: never Patient Tobacco Use Status: Never used Tobacco Current occupational status: disabled 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 She had an injection 3 months ago which has been helping in her symptoms are mild and occasional. If she has any mechanical symptoms or her symptoms worsen we can rediscuss surgery but at this time no surgical intervention warranted. Coding Level of Care Code Est Pt Level 3 (14198) Diagnoses Degenerative tear of meniscus of right knee M23.306
== END 2024-04-06 10:44 | disposition home or self-care (01) ==
PROVIDERS: PCP Internal Medicine; Visit Provider Orthopaedic Surgery
DX: M23.331 Other meniscus derangements, other medial meniscus, right knee (principal)
CPT/HCPCS: 99212

== ENCOUNTER → 2024-04-06 10:06 | Outpatient (BNVA) | payer MEDICARE, MEDICAID, SELFPAY | PROVIDERS: PCP Internal Medicine; Visit Provider Orthopaedic Surgery | DX: M23.306 Other meniscus derangements, unspecified meniscus, right knee (principal) | CPT/HCPCS: 99212 ==

== ENCOUNTER 2024-04-13 10:15 | Outpatient (REF) | payer MEDICARE, MEDICAID, SELFPAY ==
[2024-04-18 13:09] LABS: HPV mRNA E6/E7 Not Detected (Not Detected)
== END 2024-04-13 10:16 | disposition home or self-care (01) ==
LOC: HO.LNP 10:15
PROVIDERS: Visit Provider Advanced Practice Midwife
DX: Z01.419 Encounter for gynecological examination (general) (routine) without abnormal findings (principal)
CPT/HCPCS: 87624; 88175; G0101

== ENCOUNTER 2024-04-13 10:15 | Outpatient (AMB) | payer MEDICARE, MEDICAID, SELFPAY ==
--- NOTE | 2024-04-13 10:17 | A.OFFVIS_ITS ---
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 She is doing well with no concerns. Attempting to eat a healthy diet with calcium and vitamin D and stays active with exercise-walking. Currently not sexually active. Denies any vaginal dryness or irritation. STI testing offered; she declines. Last pap smear; 2019. Last mammogram; is scheduled. Colonoscopy is UTD. Denies any family history of ovarian or colon cancer. FH breast cancer-sister. [facility] Medical History Colonic polyp Degenerative disc disease Hypothyroidism Hypercholesterolemia Surgical History History of foot surgery History of surgery on wrist History of bilateral tubal ligation History of cholecystectomy History of appendectomy History of thyroidectomy Family History Father CAD (coronary artery disease) Mother COPD (chronic obstructive pulmonary disease) Sister Breast cancer, Onset Age: 57 Maternal Grandmother Stroke Aneurysm Paternal Uncle Colon cancer Social History Alcohol intake: never Patient Tobacco Use Status: Never used Tobacco Current occupational status: disabled 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 Sexual orientation: Straight/Heterosexual Gender identity: Female Female Reproductive History Menstrual control method: permanent sterilization Permanent Sterilization: BTL Total pregnancies: 1 Full term: 1 Number of Living Children: 1 Date of last pap smear: 05/09/19 (neg pap and hpv) Date of Mammogram: 04/20/23 (Birad 1) Review of Systems Const All systems reviewed & are unremarkable except as noted in HPI and below Reports as per HPI Eyes Reports no additional complaints ENT Reports no additional complaints Card Reports no additional complaints Resp Reports no additional complaints GI Reports as per HPI and Reports no additional complaints Reports as per HPI Musc Reports no additional complaints Skin/Breast Reports as per HPI Neuro Reports no additional complaints Psych Reports no additional complaints Endo Reports no additional complaints Kevin/Lymph Reports no additional complaints Aller/Immun Reports no additional complaints Physical Exam Vital Signs: Last Vital Signs BP 116/66 04/13/24 10:18 BMI result Body Mass Index 27.8 Const General: cooperative, healthy appearing, no acute distress, well developed and alert Orientation/consciousness: patient oriented x3 HEENT Head: Yes normal to inspection Eyes General: appearance normal, both eyes and all related structures Neck Neck: Yes normal visual inspection Thyroid: Thyroid normal Chest Chest palpation & inspection: normal inspection of the chest and other (no puckering, dimpling, peau de orange, retraction, discharge, masses) Breast/axilla inspection: normal inspection of the breasts Breast/axilla palpation: normal palpation of the breasts Resp Effort & Inspection: normal respiratory effort GI Inspection: Yes normal to inspection Palpation (GI): Soft to palpation Rectal Exam - Female: deferred General: Yes bladder normal to palpation External Female Exam: normal external appearance and normal appearance of the urethra Speculum Exam - Vagina: normal appearance of the vagina, normal palpation, normal vaginal discharge and vagina atrophic Speculum Exam - Cervix: normal appearance of the cervix, normal palpation and Other cervical findings present (Bled slightly with Pap) Bimanual exam- vagina & uterus: normal bimanual exam, normal palpation, uterine size normal, bladder normal to palpation, normal palpation and non-tender Bimanual Exam- Adnexa, other: no masses Skin General skin exam: no rashes or lesions noted Rashes: no rashes Neuro General: patient oriented x3 Cognition (Neuro): normal cognition Extrem General: Yes normal to inspection Psych Attitude: cooperative Thought process: Normal thought process present Assessment & Plan Assessment & Plan (1) Encounter for annual routine gynecological examination: Code(s): Z01.419 - Encounter for gynecological examination (general) (routine) without abnormal findings Category: Medical Plan Discussed: Current recommendations for pap smears per ASCCP guidelines. Breast awareness, periodic self breast exams and yearly mammogram. Maintain a healthy lifestyle, well balanced diet including Calcium 1,200 mg and Vitamin D 600 IU daily, and routine exercise. Contact the office with any postmenopausal bleeding. Patient verbalizes understanding and agrees to the plan of care. She was given opportunity to ask questions and all questions were answered to the best of my ability. RTO in 1 year for annual county program technician exam. This note is constructed using voice recognition software. While every effort has been made to ensure accuracy, student development dean errors may have been included. Coding Level of Care Code Est Pt Prev Care 40-64y(91693) Diagnoses Encounter for annual routine gynecological examination Z01.419
[2024-04-13 10:18] VITALS: BP 116/66; BMI 27.8
== END 2024-04-13 12:39 | disposition home or self-care (01) ==
PROVIDERS: Visit Provider Advanced Practice Midwife
DX: Z01.419 Encounter for gynecological examination (general) (routine) without abnormal findings (principal)
CPT/HCPCS: G0101

== ENCOUNTER 2024-04-25 11:11 | Outpatient (REF) | payer MEDICARE, MEDICAID, SELFPAY ==
--- NOTE | ~2024-04-25 | MM_ITS ---
EXAMINATION: MM SCREENING DIGITAL BREAST TOMOSYNTHESIS, BILATERAL CLINICAL INFORMATION: Screening. Asymptomatic. COMPARISON: Mammography: Comparison is made with available priors TECHNIQUE: Digital breast mammography with tomosynthesis is performed in both the craniocaudal and mediolateral oblique views along with computer-aided detection (CAD). FINDINGS: There are scattered areas of fibroglandular density (ACR BI-RADS breast composition Category b). There are no significant masses, abnormal calcifications, or other abnormalities. MM/MM tomosynthesis screening BI IMPRESSION: No mammographic evidence of malignancy. ASSESSMENT: BI-RADS BI-RADS 1 - Negative RECOMMENDATION: Routine annual mammography screening. 1 year F/U This examination should not preclude the clinical evaluation of a suspicious palpable abnormality. This patient's information was entered into a reminder system with a target due date for their next mammogram. Electronically signed by: Kellie Cornejo DO 05/03/2024 01:16 PM [facility]
== END 2024-04-25 11:12 | disposition home or self-care (01) ==
LOC: HO.MAMMO 11:11
PROVIDERS: PCP Internal Medicine; Visit Provider Internal Medicine
DX: Z12.31 Encounter for screening mammogram for malignant neoplasm of breast (principal)
CPT/HCPCS: 77063; 77067

== ENCOUNTER → 2024-04-25 11:30 | Outpatient (BNV) | payer MEDICARE, MEDICAID, SELFPAY | PROVIDERS: PCP Internal Medicine; Visit Provider Internal Medicine | DX: Z12.31 Encounter for screening mammogram for malignant neoplasm of breast (principal) | CPT/HCPCS: 77063; 77067 ==

== ENCOUNTER 2024-05-23 13:34 | Outpatient (REF) | payer MEDICARE, MEDICAID, SELFPAY ==
--- NOTE | ~2024-05-23 | XR_ITS ---
EXAMINATION: XR SINUSES CLINICAL INFORMATION: Headaches, sinus PAIN COMPARISON: CT head dated 04/29/2012. TECHNIQUE: 5 views of the sinuses were obtained. FINDINGS: Paranasal sinuses appear clear without air-fluid levels. No fractures are identified. No radiodense foreign bodies. XR/XR sinus min 3V IMPRESSION: Unremarkable examination. Electronically signed by: Rosas Hopkins MD 05/25/2024 10:22 AM [facility]
[2024-05-23 15:22] LABS: Influenza A PCR NEGATIVE (Negative); Influenza B PCR NEGATIVE (Negative); Resp Syncy Virus RNA Qual PCR NEGATIVE (Negative); SARS COV2 PCR INHOUSE NEGATIVE (Negative)
== END 2024-05-23 13:35 | disposition home or self-care (01) ==
LOC: HO.XRAY 13:34
PROVIDERS: PCP Internal Medicine; Visit Provider Internal Medicine
DX: J06.9 Acute upper respiratory infection, unspecified (principal); R51.9 Headache, unspecified
CPT/HCPCS: 0241U; 70220

== ENCOUNTER 2024-08-02 09:25 | Outpatient (REF) | payer MEDICARE, MEDICAID, SELFPAY ==
--- NOTE | ~2024-08-02 | XR_ITS ---
EXAMINATION: XR CHEST CLINICAL INFORMATION: SOB,WHEEZING COMPARISON: None available. TECHNIQUE: 2 views of the chest were obtained. FINDINGS: Lungs are well-expanded and clear. The heart size and pulmonary vascularity is normal. No gross bony abnormality seen. XR/XR chest 2V IMPRESSION: Unremarkable chest examination. Electronically signed by: Chemo Bhatt MD 08/02/2024 10:38 AM [facility]
--- OUTSIDE RECORDS SUMMARY | 2024-08-02 10:40 | XMS_ITS | Patient Health Record ---
Author Organization [facility] Address [address] [place] [address] Care Team Providers Care Firer Locomotive Name Role Phone Tony Silva MD Primary Care Provider UnavailMasoud Fields Jr Unavailable [phone] ALLERGIES Allergen (clinical drug ingredient) Drug/Non Drug [...] EXCEPT SUNDAYS Oral for 84 A ctive Omeprazole 40 MG TAKE 1 CAPSULE BY MO UTH EVERY DAY 30 MINUTES BEFORE MORNING MEAL for 90 Active Dicyclomine HCl 20 MG TAKE 1 TABLET BY OUT 2 TO 4 TIMES A DAY for 90 Active IMMUNIZATIONS Vaccine Route Administration [...] reflux disease without esophagitis (K21.9) Active confirmed 841788513 Problem Colitis (K52.9) Active confirmed 203082 04 Problem Irritable bowel syndrome with diarrhea (K58.0) Active confirmed 407182067 VITAL SIGNS Temperature 97.1 degrees Fahrenheit 09/08/2023 Blood pressure diastolic 00 mm Hg 09/08/2023 Height 61 in 09/08/2023 Blood pressure systolic 000 mm Hg 09/08/2023 Weight 148 lbs 09/08/2023 BMI 27.96 kg/m2 09/08/2023 Encounters Encounter Location Date Provider Diagnosis [facility] [address] [place] [address] 09/08/2023 Masoud Borja Jr Gastroesophageal reflux disease [...] Provider Name:Masoud baldwin Jr, 09/06/2024 09:20:00 AM, [address] [place] [address], [address], [place], [address], Insurance Providers Payer Name Payer Address Payer Phone Subscriber Number Group Number Insured Name Patient Relationship to Insured Coverage Start Date Coverage End Date MEDICARE OF [place] [address] [place] G[place] [address] [id number] [employer] Self - patient is the insured MEDICAID OF [facility] [address] [place] [address] [id number] MAR[place] [employer] Self - patient is the insured MEDICAL [...]
--- OUTSIDE RECORDS SUMMARY | 2024-08-02 10:40 | XMS_ITS | Clinical Summary ---
Author Organization [email or web address] Address [address] [place] [address] [address] [place] [address] Care Team Providers Care Assistant Field Hockey Coach Name Role Phone Unavailable Primary Care Provider Unavailabl e Allergies Active Allergy Reactions Criticality Noted Date Comments Metronidazole 03/11/2023 Gabapentin Unknown High 07/10/2015 Medications atorvastatin (Lipitor) 40 MG tablet Take 40 mg by mouth in the morning. 12/23/2022 Active cholecalciferol (Vitamin D-3) 100 MCG (4000 UT) capsule Active dicyclomine (Bentyl) 20 MG tablet TAKE 1 TABLET BY MOUTH 2-4 TIMES A DAY 12/29/2022 Active ibuprofen 600 MG tablet Take 1 tablet by mouth in the morning and 1 tablet at noon and 1 tablet in the evening. 02/17/2021 Active levothyroxine (Synthroid) 200 MCG tablet Take 1 tablet by mouth at bed time. Active omeprazole (PriLOSEC) [address] capsule TAKE 1 CAPSULE BY MOUTH EVERY DAY 30 MINUTES BEFORE MORNING MEAL 02/18/2023 Active dicyclomine (Bentyl) 20 MG tablet TAKE 1 TABLET BY MOUTH 2-4 TIMES A DAY for 90 Active cholecalciferol (Vitamin D-3) 50 MCG (2000 UT) tablet Take 50 mcg by mouth in the morning. 02/24/2023 Active Ventolin HFA 108 (90 Base) MCG/ACT inhaler INHALE 2 PUFFS BY MOUTH 4 TIMES A DAY 03/12/2023 Active omeprazole (PriLOSEC) [address] capsule TAKE 1 CAPSULE 30 MINUTES BEFORE MORNING MEAL 90 for 90 days Active Active Problems No known active problems Social History Tobacco Use Types Packs/Day Years Used Date Smoking Tobacco: Never Smokeless Tobacco: Never Tobacco Cessation:Counseling Given: Not Answered Alcohol Use Standard Drinks/Week Comments Never 0 (1 standard drink = 0.6 oz pur e alcohol) Comments Unknown Sex and Gender Information Value Date Recorded Sex Assigned at Female 04/20/2022 10:18 AM EDT Legal Sex Female 10:18 AM EDT Gender Identity Choose not to disclose 10:18 AM EDT Sexual Orientation Choose not to disclose 2021 10:18 AM EDT Last Filed Vital Signs Vital Sign Reading Time Taken Comments Blood Pressure 120/74 01/12/2024 11:36 AM EDT Pulse 69 03/23/2023 12:06 PM EDT Temperature - - Respiratory Rate - - Oxygen Saturation - - Inhaled Oxygen Concentration - - Weight - - Height - - Body Mass Index - - Plan of Treatment Health Maintenance Due Date Last Done Comments CT Colonography 1961 Colonoscopy 1961 Colorectal Cancer Screening 1961 Depression Screening 1961 FIT DNA/Cologuard 1961 FIT 1961 FOBT 1961 HIV Screening 1961 SDOH Screening 1961 Sigmoidoscopy 1961 Alcohol/Substance Use Screening 1973 Hepatitis C Screening 12/31/1979 DTaP/Tdap/Td Vaccines (1 - Tdap) 1980 Pap Smear 1982 Cervical Cancer Screening 12/31/1991 HPV/Cotest 12/31/1991 Mammogram 2001 Dental X-Ray: Bitewings 12/04/2009 12/03/2008 Pneumococcal Vaccine: 50+ Years (1 of 1 - PCV) 12/31/2011 Zoster Vaccines (1 of 2) 12/31/2011 Dental Prophylaxis 01/16/2022 07/18/2021, 1 06/23/2016, 09/25/2016, Additional history exists Dental Oral Exam 09/23/2023 03/23/2023, , 12/04/2008 COVID-19 Vaccine ( season) 2024 05/08/2021, 09/17/2020 Influenza Vaccine (#1) 2024 04/28/2015, 2009 Dental X-Ray: Full Mouth 02/27/2024 021, 06/30/2016, 12/03/2008 Tobacco Screening 04/07/2025 04/07/2024 RSV Patients and Patients Aged 60 years or older (1 - 1-dose 75+ series) 2036 HIB Vaccines Aged Out No longer eligi ble based on patient's age to complete this topic HPV Vaccines Aged Out No longer eligi ble based on patient's age to complete this topic Hepatitis A Vaccines Aged Out No long er eligible based on patient's age to complete this topic Hepatitis B Vaccines Aged Out No long er eligible based on patient's age to complete this topic IPV Vaccines Aged Out No longer eligi ble based on patient's age to complete this topic Meningococcal Vaccine Aged Out No kyra josee eligible based on patient's age to complete this topic RSV under 20 months Aged Out No longe r eligible based on patient's age to complete this topic Rotavirus Vaccines Aged Out No longer eligible based on patient's age to complete this topic Procedures Procedure Name Priority Date/Time Associated Diagnosis Comments PERIODIC ORAL EVALUATION - ESTABLISHED PATIENT Routine 03/23/2023 11:30 AM EDT PROPHYLAXIS - ADULT Routine 07/18/2021 1 2:00 AM EST PANORAMIC RADIOGRAPHIC IMAGE Routine 02/25/2021 12:00 AM EDT DIAGNOSTIC - DIAGNOSTIC IMAGING - INTRAORAL - COMPREHENSIVE SERIES OF RADIOGRAPHIC IMAGES Routine 12/03/2008 12:00 AM EDT from Last 3 Months or Most Recently Relevant to Health Maintenance Insurance [facility] MEDICAID STAND ADULT
--- OUTSIDE RECORDS SUMMARY | 2024-08-02 10:40 | XMS_ITS | Encounter Summary ---
Author Organization [employer] [facility] Address [address] [place] [address] [address] [place] [address] Care Team Providers Care Hydraulic Pile Hammer Operator Name Role Phone Unavailable Primary Care Provider Unavailabl e Encounter Details Date Type Department Care Team (Latest Contact Info) Description 07/18/2021 Abstract [facility] CONVERSIONS Dental, Provider, DDS Social History Tobacco Use Types Packs/Day Years Used Date Smoking Tobacco: Never Assessed Comments Unknown Sex and Gender Information Value Date Recorded Sex Assigned at Female 04/20/2022 10:18 AM EDT Legal Sex Female 10:18 AM EDT Gender Identity Choose not to disclose 10:18 AM EDT Sexual Orientation Choose not to disclose 2021 10:18 AM EDT documented as of this encounter Plan of Treatment Not on file documented as of this encounter Visit Diagnoses Not on filedocumented in this encounter
--- OUTSIDE RECORDS SUMMARY | 2024-08-02 10:40 | XMS_ITS | Encounter Summary ---
Author Organization [employer] Address [address]t [place] [address] Care Team Providers Care Clinical Safety Specialist Name Role Phone Unavailable Primary Care Provider Unavailabl e Reason for Visit * Reason Onset Date Comments Appointment 03/31/2023 Encounter Details Date Type Department Care Team ([facility] st Contact Info) Description 03/31/2023 Telephone [facility] [address] [place] [address] NeriJose M hermosillo, DMD [address] [place] [address] Appointment Social History Tobacco Use Types Packs/Day Years Used Date Smoking Tobacco: Never Smokeless Tobacco: Never Alcohol Use Standard Drinks/Week Comments Never 0 (1 standard drink = 0.6 oz pur e alcohol) Comments Unknown Sex and Gender Information Value Date Recorded Sex Assigned at Female 04/20/2022 10:18 AM EDT Legal Sex Female 10:18 AM EDT Gender Identity Choose not to disclose 10:18 AM EDT Sexual Orientation Choose not to disclose 2021 10:18 AM EDT documented as of this encounter Miscellaneous Notes * Telephone Encounter - Sarah Ahmadi - 03/31/2023 3:17 PM EDT Appt was scheduled just a few minutes ago for the patient. She just realized that she may be out ofwn and wont be back until a date in April. I did inform patient that provider is only in 1 time a month so I would be not be aware as to how soon she will be rescheduled. She did ask to speak with you only because she is unsure what to do and wants to know what the wait would look like documented in this encounter Plan of Treatment Not on file documented as of this encounter Visit Diagnoses Not on filedocumented in this encounter
--- OUTSIDE RECORDS SUMMARY | 2024-08-02 10:40 | XMS_ITS ---
Author Organization [facility] Address [address] [place] [address] Care Team Providers Care Training Manager Name Role Phone Shira WIGGINS, Tony Primary Care Provider Masoud Mckeon Jr Unavailable ALLERGIES Allergen (clinical drug ingredient) Drug/Non Drug Allergy documented on EMR Reaction Allergy Type Onset Date Status gabapentin Gabapentin Unknown Drug Allergy Activ e metronidazole Metronidazole (uncoded) Unknown Allergy Active REASON FOR VISIT patient presents today for gerd MEDICATIONS Medication SIG (Take, Route, Fr equency, [...] MINUTES BEFORE MORNING MEAL for 90 Active SOCIAL HISTORY Tobacco Use: Social History Observation [...] W/U Status Risk SNOMED Code Notes Problem Irritable bowel syndrome with diarrhea (K58.0) Active confirmed VITAL SIGNS BMI 27.96 kg/m2 09/08/2023 Blood pressure systolic 000 mm Hg 09/08/19 24 Blood pressure diastolic 00 mm Hg 024 Height 61 in 09/08/2023 Temperature 97.1 degrees Fahrenheit 09/08/19 Weight 148 lbs 09/08/2023 Encounters Encounter Location Date Provider Diagnosis [facility] [address] [place] [address] 09/08/2023 Masoud Borja Jr Gastroesophageal reflux disease without esophagitis K21.9 and Irritable bowel syndrome with diarrhea K58.0 ASSESSMENTS Encounter Date Diagnosis Assessment Notes Treatment Notes Treatment Clinical Notes 09/08/2023 Gastroesophageal reflux disease without esophagitis (ICD-10 - K21.9) Gastroesophageal reflux disease material was printed 09/08/2023 Irritable bowel syndrome with diarrhea (ICD-10 - K58.0) PLAN OF TREATMENT Treatment Notes Assessment Notes Gastroesophageal reflux dise ase without esophagitis Gastroesophageal reflux disease material was printed Next Appt Details Follow Up: 1 Year, Reason: Provider Name:Masoud baldwin Jr, 09/06/2024 09:20:00 AM, [address] [facility], [address], [place], [address],
== END 2024-08-02 09:26 | disposition home or self-care (01) ==
LOC: HO.XRAY 09:25
PROVIDERS: PCP Internal Medicine; Visit Provider Internal Medicine
DX: R06.02 Shortness of breath (principal); R06.2 Wheezing
CPT/HCPCS: 71046

== ENCOUNTER → 2024-08-02 09:34 | Outpatient (BNV) | payer MEDICARE, MEDICAID, SELFPAY | PROVIDERS: PCP Internal Medicine; Visit Provider Radiology Diagnostic Radiology | DX: R06.02 Shortness of breath (principal); R06.2 Wheezing | CPT/HCPCS: 71046 ==

== ENCOUNTER 2024-08-30 14:10 | Outpatient (REF) | payer MEDICARE, MEDICAID, SELFPAY ==
[2024-08-30 15:25] LABS: Alanine Aminotransferase 19 U/L (0-31); Aspartate Amino Transferase 23 U/L (5-31)
[2024-08-30 15:41] LABS: Free T4 (Free Thyroxine) 1.15 ng/dL (0.71-1.85); Thyroid Stimulating Hormone 0.95 uIU/mL (0.32-4.0)
--- OUTSIDE RECORDS SUMMARY | 2024-08-30 16:46 | XMS_ITS | Patient Health Record ---
Author Organization [facility] Address [address] [place] [address] Care Team Providers Care Radiation Technician Name Role Phone Tony Silva MD Primary Care Provider UnavailMasoud Fields Jr Unavailable [phone] Allergies Allergen (clinical drug ingredient) Drug/Non Drug Allergy documented on EMR Reaction Allergy Type Onset Date Status gabapentin Gabapentin Unknown Drug Allergy Activ e metronidazole Metronidazole (uncoded) Unknown Allergy Active Reason For Referral No Information Medications Medication SIG (Take, Route, Fr equency, Duration) [...] 4 TIMES A DAY for 90 Active Immunizations Vaccine Route Administration Date Status Comme nts Influenza Unknown 03/29/2019 Administered Influenza Unknown 03/09/2023 Administered Influenza Unknown 09/07/2022 Refused Social History Tobacco Use: Social History Observation Description Date Details (start date - stop date) Never Smoker NA - NA Tobacco Use/Smoking Question Answer Notes Patient is [...] Never (0 point) Points 1 Interpretation Negative Problems Problem Type SNOMED Code ICD Code Onset Dates Problem Status W/U Status Risk Notes Problem 598526840 Irritable bowel syndrome with diarrhea (K58.0) Active confirmed Problem 964377457 Gastroesophageal reflux disease without esophagitis (K21.9) Active confirmed Problem 43203829 Colitis (K52.9) Active confirmed Vital Signs Temperature 97.1 degrees Fahrenheit 09/08/2023 Blood pressure diastolic 00 mm Hg 09/08/2023 Height 61 in 09/08/2023 Blood pressure systolic 000 mm Hg 09/08/2023 Weight 148 lbs 09/08/2023 BMI 27.96 kg/m2 09/08/2023 Encounters Encounter Location Date Provider Diagnosis [facility] [address] [place] [address] 09/08/2023 Masoudchristianne Borja Jr Gastroesophageal reflux disease without esophagitis K21.9 and Irritable bowel syndrome with diarrhea K58.0 Assessments Encounter Date Diagnosis (ICD Code) Assessment Notes Treatment Notes Treatment Clinical Notes Section Notes 09/08/2023 Irritable bowel syndrome with diarrhea (ICD-10 - K58.0) She is doing wel l with her present treatment for gastroesophageal reflux disease and irritable bowel syndrome. We discussed both disease processes in detail today. No changes are made in her medical regimen. Medications are continued. Followup will be in one year. 09/08/2023 Gastroesophageal reflux disease without esophagitis (ICD-10 - K21.9) Gastroesophageal reflux disease material was printed She is doing well with her present treatment for gastroesophageal reflux disease and irritable bowel syndrome. We discussed both disease processes in detail today. No changes are made in her medical regimen. Medications are continued. Followup will be in one year. Plan Of Treatment Future Test Test Name Order Date UPPER GI ENDOSCOPY 02/21/2020 COLONOSCOPY 02/21/2020 Next Appt Details Provider Name:Masoud baldwin Jr, 09/06/2024 09:20:00 AM, [address], [address], [place], [address], Insurance Providers Payer Name Payer Address Payer Phone Subscriber Number Group Number Insured Name Patient Relationship to Insured Coverage Start Date Coverage End Date MEDICARE OF [place] [address] [place] [id number] [employer] [employer] Self - patient is the insured MEDICAID OF [facility] [address] [place] [address] [id number] [employer] Self - patient is the insured Medical (General) History Medical History History ICD Code Colonoscopy 03/08/20, normal sigmoid biopsies. Hyperplastic polyp 10 year recall Gastroesophageal reflux dise ase, EGD 03/08/20, no H. pylori or Zhao's esophagus. thyroidectomy/Angle's thyroiditis cholecystectomy appendectomy headaches De Quervain's tenosynovitis left and rig ht with cyst on the right Surgical History Surgery Date(Month/Year) Appendectomy Cholecystectomy Tubal ligation
--- OUTSIDE RECORDS SUMMARY | 2024-08-30 16:46 | XMS_ITS | Encounter Summary ---
Author Organization [employer] [facility] Address [address] [place] [address] [address] [place] [address] Care Team Providers Care Rotary Drier Feeder Name Role Phone Unavailable Primary Care Provider Unavailabl e Encounter Details Date Type Department Care Team (Latest Contact Info) Description 07/18/2021 Abstract [facility] CONVERSIONS Dental, Provider, DDS Social History Tobacco [...]
--- OUTSIDE RECORDS SUMMARY | 2024-08-30 16:46 | XMS_ITS | Clinical Summary ---
Author Organization [employer] Address [address] [place] [address] [address] [place] [address] Care Team Providers Care Deputy Coroner Name Role Phone Unavailable Primary Care Provider [...] RADIOGRAPHIC IMAGE Routine 02/25/2021 12:00 AM EDT INTRAORAL - COMPLETE SERIES OF RADIOGRAPHIC IMAGES Routine 12/03/2008 12:00 AM EDT from Last 3 Months or Most Recently Relevant to Health Maintenance Insurance [facility] MEDICAID STAND ADULT
--- OUTSIDE RECORDS SUMMARY | 2024-08-30 16:46 | XMS_ITS | Encounter Summary ---
Author Organization [employer] Address [address] [facility] 7[address] [place] [address] Care Team Providers Care Wellness Coach Name Role Phone Unavailable Primary Care Provider Unavailabl e Reason for Visit * Reason Onset Date Comments Appointment 03/31/2023 Encounter Details Date Type Department Care Team ([facility] st Contact Info) Description 03/31/2023 Telephone [facility] [address] [place] [address] NeriJose M hermosillo, DMD [address] [place] [address] Appointment Social History Tobacco Use Types Packs/Day [...]
--- OUTSIDE RECORDS SUMMARY | 2024-08-30 16:46 | XMS_ITS ---
Author Organization [facility] Address [address] [place] [address] Care Team Providers Care Sanitation Worker Hosing Machinery Name Role Phone Tony Silva MD Primary Care Provider Masoud Mckeon Jr Unavailable Allergies Allergen (clinical drug ingredient) Drug/Non Drug Allergy documented on EMR Reaction Allergy Type Onset Date Status gabapentin Gabapentin Unknown Drug Allergy Activ e metronidazole Metronidazole (uncoded) Unknown Allergy Active REASON FOR VISIT patient presents today for gerd Medications Medication SIG (Take, Route, Fr equency, [...] MINUTES BEFORE MORNING MEAL for 90 Active Social History Tobacco Use: Social History Observation [...] Problem Status W/U Status Risk Notes Problem [id number] Irritable bowel syndrome with diarrhea (K58.0) Active confirmed Vital Signs Temperature 97.1 degrees Fahrenheit 03/20/20 24 Blood pressure systolic 000 mm Hg 09/08/19 24 Blood pressure diastolic 00 mm Hg 024 Height 61 in 09/08/2023 Weight 148 lbs 09/08/2023 BMI 27.96 kg/m2 09/08/2023 Encounters Encounter Location Date Provider Diagnosis [facility] [address] [place] [address] 09/08/2023 Masoud Borja Jr Gastroesophageal reflux disease without esophagitis K21.9 and Irritable bowel syndrome with diarrhea K58.0 Assessments Encounter Date Diagnosis (ICD Code) Assessment Notes Treatment Notes Treatment Clinical Notes Section Notes 09/08/2023 Gastroesophageal reflux disease without esophagitis (ICD-10 - K21.9) Gastroesophageal reflux disease material was printed She is doing well with her present treatment for gastroesophageal reflux disease and irritable bowel syndrome. We discussed both disease processes in detail today. No changes are made in her medical regimen. Medications are continued. Followup will be in one year. 09/08/2023 Irritable bowel syndrome with diarrhea (ICD-10 - K58.0) She is doing wel l with her present treatment for gastroesophageal reflux disease and irritable bowel syndrome. We discussed both disease processes in detail today. No changes are made in her medical regimen. Medications are continued. Followup will be in one year. Plan Of Treatment Treatment Notes Assessment Notes Gastroesophageal reflux dise ase without esophagitis Gastroesophageal reflux disease material was printed Next Appt Details Follow Up: 1 Year, Reason: Provider Name:Masoud baldwin Jr, 09/06/2024 09:20:00 AM, [address], [address], [place], [address], Progress Notes * BELA OSORIO EDOB: [birth year] (62 yo F)Acc No.[id number]:09/08/2023 Progress Notes Patient:?BELA OSORIO Provider:?Masoud Borja MD :1960???Age:62 Y???Sex:Female D ate:09/08/2023 Address:[address] [place], [place] [id number] Pcp:Tony Silva MD Subjective: * Chief Complaints: * ???1. Patient presents today for gerd. * HPI: ???New symptom(s):? Bela Osorio is seen today in followup of gastroesophageal reflux disease and irritable bowel syndrome. She continues on dicyclomine 20 mg twice daily as needed for crampy abdominal pains associated with irritable bowel syndrome in occasional diarrhea. She has no complaints of rectal bleeding or change in her bowel habits otherwise. There is no food related causes for her symptoms. ?She has a history of gastroesophageal reflux disease with substernal burning precipitated by typical foods. Symptoms are well-controlled on omeprazole 20 mg daily. She is up-to-date on endoscopy and colonoscopy. We reviewed this today. ?She reports recent physical examination her primary care provider including evaluation of routine blood tests including cholesterol, blood sugar, and her blood pressure have been normal. * Medical History:?Colonoscopy 03/08/20, normal sigmoid biopsies. Hyperplastic polyp 10 year recall, Gastroesophageal reflux disease, EGD 03/08/20, no H. pylori or Zhao's esophagus., thyroidectomy/Angle's thyroiditis, Cholecystectomy, Appendectomy, Headaches, De Quervain's tenosynovitis left and right with cyst on the right . * Surgical History:?Appendecto my , Cholecystectomy , Tubal ligation . * Family History:?Father: dece ased.?Mother: .? Mother had COPD. Denies any family hx of colon caner, colon polyps or liver ds. * Social History:?Tobacco Use:?Tobacco Use/Smoking?Patient is a?nonsmoker.?Drugs/Alcohol:?Alcohol Screen?Did you have a drink containing alcohol in the past year??Yes,?How often did you have a drink containing alcohol in the past year??Monthly or less (1 point), How many drinks did you have on a typical day when you were drinking in the past year??1 or 2 drinks (0 point),?How often did you have 6 or more drinks on one occasion in the past year??Never (0 point),?Points?1,?Interpretation?Negative.?Miscellaneous:?Marital status: . Occupation: unemployed - disabled. * Medications:?Taking Omeprazo le 40 MG Capsule Delayed Release TAKE 1 CAPSULE BY MOUTH EVERY DAY 30 MINUTES BEFORE MORNING MEAL , Taking Dicyclomine HCl 20 MG Tablet TAKE 1 TABLET BY MOUTH 2-4 TIMES A DAY , Taking Synthroid 200 MCG Tablet TAKE 1 TABLET BY MOUTH ONCE A DAY EXCEPT SUNDAYS Oral , Medication List reviewed and reconciled with the patient * Allergies:?Gabapentin, Metro nidazole. Objective: * Vitals:?Wt: 148 lbs, Ht: 61 in, BMI:27.96 Index, BP: 000/00 mm Hg, Temp: 97.1. * Examination: ???General Examination: ???On physical examination today, she appears well. Skin is anicteric. Lungs are clear. Heart shows regular rate and rhythm. Abdomen is soft without focal mass or tenderness. Extremities are without edema. Assessment: * Assessment: 1.?Gastroesophageal reflux d isease without esophagitis - K21.9 (Primary)?2.?Irritable bowel syndrome with diarrhea - K58.0? She is doing well with her p resent treatment for gastroesophageal reflux disease and irritable bowel syndrome. We discussed both disease processes in detail today. No changes are made in her medical regimen. Medications are continued. Followup will be in one year. Plan: * Treatment: * Procedure Codes:?3017F COLOR ECTAL CA SCREEN DOC REV, G9903 Pt scrn tbco id as non user, G9745 DOC RSN FOR NOT SCREEN/REC F/U HBP * Preventive Medicine:? ??Counseling:?Care goal follow-up plan:?Above Normal BMI Follow-up?Giving encouragement to exercise,?BMI management provided?Yes.? * Follow Up:?1 Year * * Sign off status: Completed true * Provider:?Masoud Borja MD Date:?0 09/08/2023 Generated for Simon brewer/Sushant/eTyueitting on:?08/30/2024 04:45 PM EDT History and Physical Notes * HPI (History of Present Illness) Category Sub-Category Detail Notes Category Not es New symptom(s) Bela Osorio is seen today in followup of gastroesophageal reflux disease and irritable bowel syndrome. She continues on dicyclomine 20 mg twice daily as needed for crampy abdominal pains associated with irritable bowel syndrome in occasional diarrhea. She has no complaints of rectal bleeding or change in her bowel habits otherwise. There is no food related causes for her symptoms. She has a history of gastroesophageal reflux disease with substernal burning precipitated by typical foods. Symptoms are well-controlled on omeprazole 20 mg daily. She is up-to-date on endoscopy and colonoscopy. We reviewed this today. She reports recent physical examination her primary care provider including evaluation of routine blood tests including cholesterol, blood sugar, and her blood pressure have been normal. Examination Category Sub-Category Detail Notes Category Not es General Examination On physi emerson examination today, she appears well. Skin is anicteric. Lungs are clear. Heart shows regular rate and rhythm. Abdomen is soft without focal mass or tenderness. Extremities are without edema.
== END 2024-08-30 14:11 | disposition home or self-care (01) ==
LOC: HO.LAB 14:10
PROVIDERS: PCP Internal Medicine; Visit Provider Family Medicine
DX: E78.00 Pure hypercholesterolemia, unspecified (principal); E03.9 Hypothyroidism, unspecified
CPT/HCPCS: 36415; 82550; 84439; 84443; 84450; 84460

== ENCOUNTER 2024-11-01 13:21 | Outpatient (AMB) | payer MEDICARE, MEDICAID, SELFPAY ==
[2024-11-01 13:24] VITALS: BP 116/70; PULSE 62; TEMP 36.3; O2SAT 98; BMI 28.9
--- NOTE | 2024-11-01 13:24 | MHC.PC.OV ---
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: No Accompanied by: Self / Same As Patient Allergies gabapentin [GABAPENTIN] Allergy (Severe, Verified 11/01/24 14:19) CHEST PAIN meloxicam Allergy (Unknown, Verified 11/01/24 14:19) Unknown From FLAGYL Allergy (Intermediate, Uncoded 11/01/24 14:19) GI UPSET Medication List - Last Reconciled 11/01/24 by Miguel A Cobb MD albuterol sulfate 90 mcg/actuation (Ventolin HFA) inhalation atorvastatin 40 mg PO DAILY betamethasone dipropionate 0.05% 1 appl topical BID cholecalciferol (vitamin D3) (Vitamin D3) 50 mcg PO DAILY dicyclomine 20 mg PO QID levothyroxine (Synthroid) 200 mcg PO DAILY omeprazole 40 mg PO QAM Tobacco use date assessed: 11/01/24 Dental Screening Dental Screen Date: 11/01/24 Did you have a dental visit in the last 12 months?: Yes Did you have a dental problem in the last 6 months where you did not have access to dental care?: No PFSH Medical History (Updated 11/01/24 @ 14:18 by Miguel A Cobb MD) Colonic polyp Degenerative disc disease Hypothyroidism Hypercholesterolemia Surgical History History of colonoscopy (~03/08/20) History of foot surgery History of surgery on wrist History of bilateral tubal ligation History of cholecystectomy History of appendectomy History of thyroidectomy Family History (Updated 11/01/24 @ 13:48 by Caro Sanchez MA) Father CAD (coronary artery disease) Mother COPD (chronic obstructive pulmonary disease) Sister Breast cancer, Onset Age: 57 Maternal Grandmother Stroke Aneurysm Paternal Uncle Colon cancer Social History Housing: House Alcohol intake: never Patient Tobacco Use Status: Never used Tobacco e-Cigarette/Vaping Use: Never Used service: No Current occupational status: disabled 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 1. Little interest or pleasure in doing things: not at all 2. Feeling down, depressed, or hopeless: not at all 3. Trouble falling or staying asleep, or sleeping too much: not at all 4. Feeling tired or having little energy: not at all 5. Poor appetite or overeating: not at all 6. Feeling bad about yourself - or that you are a failure or have let yourself or your family down: not at all 7. Trouble concentrating on things, such as reading the newspaper or watching television: not at all 8. Moving or speaking so slowly that other people could have noticed. Or the opposite - being so fidgety or restless that you have been moving around a lot more than usual: not at all 9. Thoughts that you would be better off or of hurting yourself in some way: not at all Total score: 0 Source: Developed by Drs. Kelechi Caceres, Tiffanie Pruett, Myles Ramos and colleagues, with an educational neo from [employer]. Thrive Questionnaire Date Thrive assessed: 11/01/24 I am a: Patient Within the past 12 months, did the food you bought not last and you didn't have the money to get more?: Never true Within the past 12 months, did you worry whether your food would run out before you got money to buy more?: Never true Do you have trouble paying for medicines?: No Do you have trouble getting transportation to medical appointments?: No Do you have trouble paying your heating and electricity bill?: No Do you have trouble taking care of your child, family member or friend?: No Do you have trouble with day-to-day activities such as bathing, preparing meals, shopping, managing finances, etc.?: No Are you currently unemployed and looking for a job?: No Are you interested in more education?: No THRIVE Score: 0 AUDIT C Alcohol Use Questionnaire (AUDIT-C) 1. How often do you have a drink containing alcohol?: Monthly or less 2. How many drinks containing alcohol do you have on a typical day when you are drinking?: 1 or 2 3. How often do you have six or more drinks on one occasion?: Less than monthly Total Score: 2 NATALIE-7 AMB Questionnaire NATALIE-7 Date NATALIE - 7 assessed: 11/01/24 Feeling nervous, anxious, or on edge: 0 = Not at all Not being able to stop or control worryin = Not at all Worrying too much about different things: 0 = Not at all Trouble relaxin = Not at all Being so restless that it is hard to sit still: 0 = Not at all Becoming easily annoyed or irritable: 0 = Not at all Feeling afraid as if something awful might happen: 0 = Not at all Total NATALIE-7 score (0-4 normal; 5-9 mild; 10-14 moderate; 15-21 severe): 0 Source: Developed by Drs. Kelechi Caceres, Tiffanie Pruett, Myles Ramos and colleagues, with an educational neo from [employer]. Physical exam (Primary Care) Vital Signs: Last Vital Signs Temp 97.4 F 11/01/24 13:24 Pulse 62 11/01/24 13:24 BP 116/70 11/01/24 13:24 Pulse Ox 98 11/01/24 13:24 Oxygen Delivery Method Room Air 11/01/24 13:24 BMI result Body Mass Index 28.9 Tobacco/Smoking Status: Tobacco use Status Tobacco use date assessed 11/01/24 11/01/24 13:26 Patient Tobacco Use Status Never used Tobacco 11/01/24 13:26 e-Cigarette/Vaping Use Never Used 11/01/24 13:26 PHQ-9: PHQ-9 Score PHQ-9: Total score 0 11/01/24 13:48 Thrive Assessment: Date of Thrive Assessment Date Thrive assessed 11/01/24 11/01/24 13:26 Coding Level of Care Code New Pt Level 4 (17727) Complex EM visit Add On G2211 Diagnoses Hypercholesterolemia E78.00 Assessment & Plan Assessment & Plan (1) Hypercholesterolemia: Code(s): E78.00 - Pure hypercholesterolemia, unspecified Category: Medical Plan: BW ordered. Will call with results. Plan History of Present Illness The patient is a 63-year-old female presenting for a routine wellness visit, primarily to address the monitoring of her thyroid medication. She has a history of hypothyroidism following thyroid removal, requiring regular medication and periodic blood tests to ensure proper dosage. Two months ago, she had blood tests, though thyroid levels were not assessed. The patient is post-cataract surgery as of this August, which has improved her night driving capability. She is vigilant with breast cancer screenings due to a family history?specifically her sister's case?and underwent a mammogram in April. Sleep is occasionally disrupted due to back pain, which she manages by maintaining an active lifestyle. She lives independently, managing her household and finances, despite some challenges with physical tasks due to living alone. 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 - Living situation: Lives alone, independently handles shopping and finances. - Exercise: Engages in regular walking for activity. - Family health: Sister had breast cancer; patient is diligent with mammograms. - Sleep pattern: Disrupted by back pain, affects sleep quality. Review of Systems - Endocrine: Reports lack of thyroid due to previous surgery, on thyroid medication. - Vision: Reports improvement post-cataract surgery; able to drive at night. - Musculoskeletal: Reports back pain affecting sleep. - Family History: Sister with a history of breast cancer. - General: Denies any current medical health concerns; independent in ADLs. Physical Exam General: Cooperative and healthy appearing Nutritional Appearance: Well nourished Orientation/consciousness: Patient oriented x3 Limitations: No limitations Head: Normal to inspection General: Appearance normal, both eyes and all related structures Neck: Normal visual inspection Chest: Normal palpation of entire chest wall Respiratory: Normal ormal respiratory effort Neurology: Patient oriented x3 Results - Labs: Blood work done two months ago, excluded thyroid function tests. - Imaging: Mammogram performed in April, routine screening. Plan 1. Hypothyroidism Due To Thyroidectomy - Order thyroid function tests. - Follow-up in six months. 2. Cataracts, Post-Surgery - Continue regular ophthalmology visits. 3. Sleep Disturbance Due To Back Pain - Encourage physical activity. 4. Breast Cancer, Family History - Continue annual mammogram screenings. Discussion Notes Today, we reviewed the importance of thyroid monitoring due to the absence of the thyroid gland, necessitating consistent thyroid function tests. We scheduled these labs to adjust medication as required. Additionally, we discussed the success of her recent cataract surgery and encouraged maintaining scheduled global compensation manager visits. We addressed her reported sleep issues, exacerbated by back pain, with a recommendation to continue her current exercise regimen. Her vigilance with breast cancer screening is commendable, and her adherence to annual mammograms was reinforced due to her family history. We decided a follow-up appointment to review her thyroid levels and overall health is appropriate in six months. Patient Instructions - Obtain thyroid function tests as ordered. - Continue daily exercise routine, especially walking. - Follow up with scheduled eye exams. - Continue annual mammogram screenings. - Schedule a follow-up appointment in six months to review test results and overall health. - Maintain activity levels and avoid activities that exacerbate back pain. - Contact the office if experiencing worsening symptoms or health changes. Orders: Orders Basic Metabolic Panel Today E78.00 - Pure hypercholesterolemia, unspecified UA and rflx microscopic Today E78.00 - Pure hypercholesterolemia, unspecified Complete Blood Count no Diff Today E78.00 - Pure hypercholesterolemia, unspecified Liver Panel Today E78.00 - Pure hypercholesterolemia, unspecified Thyroid Stimulating Hormone Today E78.00 - Pure hypercholesterolemia, unspecified
--- OUTSIDE RECORDS SUMMARY | 2024-11-01 13:33 | XMS_ITS | Encounter Summary ---
Author Organization [employer] Address [address] [facility] [place] [address] Care Team Providers Care Head Of It Name Role Phone Unavailable Primary Care Provider Unavailabl e Encounter Details Date Type Department Care Team (Latest Contact Info) Description 07/18/2021 Abstract [facility] CONVERSIONS Dental, Provider, DDS Social History Tobacco [...]
--- OUTSIDE RECORDS SUMMARY | 2024-11-01 13:33 | XMS_ITS | Clinical Summary ---
Author Organization [employer] Address [address] [facility] [address] [place] [address] Care Team Providers Care Tube Coater Name Role Phone Unavailable Primary Care Provider [...] Most Recently Relevant to Health Maintenance Insurance [facility]ENT[facility] MEDICAID STAND ADULT
--- OUTSIDE RECORDS SUMMARY | 2024-11-01 13:33 | XMS_ITS | Encounter Summary ---
Author Organization [employer] Address [address] [place] [address] Care Team Providers Care Senior Training Specialist Name Role Phone Unavailable Primary Care Provider Unavailabl e Reason for Visit * Reason Onset Date Comments Appointment 03/31/2023 Encounter Details Date Type Department Care Team ([facility] st Contact Info) Description 03/31/2023 Telephone [facility] [address] [place] [address] NeriJose M hermosillo, DMD [address] [place] [address] Appointment Social History Tobacco Use Types Packs/Day [...] just realized that she may be out oftown and wont be back until a date in April. I did inform patient that provider is only in 1 time a month so I would be not be aware as to how soon she will be rescheduled. She did ask to speak with you only because she is unsure what to do and wants to know what the wait would look like DR documented in this encounter Plan of Treatment Not on file documented as of this encounter Visit Diagnoses Not on filedocumented in this encounter
--- OUTSIDE RECORDS SUMMARY | 2024-11-01 13:33 | XMS_ITS | Patient Health Record ---
Author Organization [facility] Address [address] [place] [address] Care Team Providers Care Lead Pressman [employer] Printing Name Role Phone Tony Silva MD Primary Care Provider UnavailMasoud Fields Jr Unavailable Allergies Allergen (clinical drug ingredient) [...] Problem Status W/U Status Risk Notes Problem 207376857 Irritable bowel syndrome with diarrhea (K58.0) Active confirmed Problem 862639418 Gastroesophageal reflux disease without esophagitis (K21.9) Active confirmed Problem 10524657 Colitis (K52.9) Active confirmed Encounters Encounter Location Date Provider Diagnosis [facility] [address] [place] [address] 09/04/2024 Masoud Borja Jr Plan Of Treatment Future Test Test Name Order Date UPPER GI ENDOSCOPY 02/21/2020 COLONOSCOPY 02/21/2020 Next Appt Details Provider Name:Masoud baldwin Jr, 12/13/2024 11:00:00 AM, [address], [address], [place], [address], Insurance Providers Payer Name Payer Address Payer Phone Subscriber Number Group Number Insured Name Patient Relationship to Insured Coverage Start Date Coverage End Date MEDICARE OF [place] [address] [place] [address] [id number] MARGE POST Self - patient is the insured MEDICAID OF [facility] [address] [place] [address] [id number] MARGE POST Self - patient is the [...]
--- OUTSIDE RECORDS SUMMARY | 2024-11-01 13:33 | XMS_ITS ---
Author Organization [facility] Address [address] [place] [address] Care Team Providers Care Paediatrician Name Role Phone Tony Silva MD Primary Care Provider Masoud Mckeon Jr Unavailable [phone] REASON FOR VISIT R/S OV Encounters Encounter Location Date Provider Diagnosis [facility] [address] [place] [address] 09/04/2024 Masoud Borja Jr Plan Of Treatment Next Appt Details Provider Name:Masoud baldwin Jr, 12/13/2024 11:00:00 AM, [address], [address], [place], [address], Progress Notes * MARGE POST EDOB: [birth year] (63 yo F)Acc No.[id number]:09/04/2024 Patient:?MARGE POST :1960???Age:63 Y???Sex:Female Address:[address] , [place], [address] * true * Date:? Generated for Printi ng/Sushant/eTransmitting on:?11/01/2024 01:32 PM EDT
--- OUTSIDE RECORDS SUMMARY | 2024-11-01 13:33 | XMS_ITS ---
Author Organization [facility] Address [address] [place] [address] Care Team Providers Care Instructor Modeling Name Role Phone Tony Silva MD Primary Care Provider Masoud Mckeon Jr Unavailable [phone] Allergies Allergen (clinical drug ingredient) Drug/Non Drug [...] Problem Status W/U Status Risk Notes Problem [id number] Irritable bowel syndrome with diarrhea (K58.0) Active confirmed Vital Signs Temperature 97.1 degrees Fahrenheit 03/20/20 24 Blood pressure systolic 000 mm Hg 09/08/19 24 Blood pressure diastolic 00 mm Hg 024 Height 61 in 09/08/2023 Weight 148 lbs 09/08/2023 BMI 27.96 kg/m2 09/08/2023 Encounters Encounter Location Date Provider Diagnosis [facility] [address] [place] [address] 09/08/2023 Masoud Borja Jr Gastroesophageal reflux disease [...] 1 Year, Reason: Provider Name:Masoud baldwin Jr, 12/13/2024 11:00:00 AM, [address] [facility] [address], [address], [place], [address], Progress Notes * BELA OSORIO EDOB: [birth year] (62 yo F)Acc No.[id number]:09/08/2023 Progress Notes Patient:?BELA OSORIO Provider:?Masoud Borja MD :1960???Age:62 Y???Sex:Female D ate:09/08/2023 Address:[address] [place], [place] [id number] Pcp:Tony Silva MD Subjective: * Chief Complaints: [...] Borja MD Date:?0 09/08/2023 Generated for Simon brewer/Sushant/eTwill on:?11/01/2024 01:32 PM EDT History and Physical Notes * [...]
--- OUTSIDE RECORDS SUMMARY | 2024-11-01 13:33 | XMS_ITS ---
Author Organization [facility] Address [address] [place] [address] Care Team Providers Care Clinical Account Executive Name Role Phone Shira WIGGINS, Tony Primary Care Provider Masoud Mckeon Jr Unavailable REASON FOR VISIT Patient presents today for gerd Encounters Encounter Location Date Provider Diagnosis [facility] [address] [place] [address] 09/06/2024 Masoud Borja Jr Plan Of Treatment Next Appt Details Provider Name:Masoud baldwin Jr, 12/13/2024 11:00:00 AM, [address], [address], [place], [address], Progress Notes * SJEAL MARGE EDOB: [birth year] (63 yo F)Acc No.[id number]:09/06/2024 Progress Notes Patient:?GEORGIEBRADENMARGE Provider:?Masoud Borja MD :1960???Age:63 Y???Sex:Female D ate:09/06/2024 Address:[address] [place] [address] [address] , [id number] Pcp:Tony Silva MD Subjective: * Chief Complaints: * ???1. Patient presents today for gerd. * Medical History:? Objective: * Vitals:? Assessment: Plan: * Treatment: * * The named appointment provid er may or may not be the originator of this progress note, and it is not deemed complete until electronically signed by the appointment provider. Sign off status: Pending * Provider:?Masoud Borja MD Date:?0 09/06/2024 Generated for Simon brewer/Sushant/Megan on:?11/01/2024 01:33 PM EDT
== END 2024-11-01 14:18 | disposition home or self-care (01) ==
LOC: HO.HMCHD 13:22
PROVIDERS: PCP Internal Medicine; Visit Provider Internal Medicine
DX: E78.00 Pure hypercholesterolemia, unspecified (principal)

== ENCOUNTER → 2024-11-01 13:21 | Outpatient (BNVA) | payer MEDICARE, MEDICAID, SELFPAY | PROVIDERS: PCP Internal Medicine; Visit Provider Internal Medicine | DX: E78.00 Pure hypercholesterolemia, unspecified (principal) | CPT/HCPCS: 99202 ==

== ENCOUNTER 2024-11-03 15:24 | Outpatient (REF) | payer MEDICARE, MEDICAID, SELFPAY ==
[2024-11-03 16:43] LABS: Appearance Urine Clear; Color Urine Yellow; Glucose Urine UA Negative (Negative); Leukocyte Esterase Urine Moderate (2+) (Negative); Nitrite Urine Negative (Negative); PH 6.5 (5.0-9.0); UMIC TRIGGER UA YES; Urine Blood Negative (Negative); Urine Ketones Negative (Negative); Urine Protein Negative (Neg-Trace)
[2024-11-03 16:43] LABS: Hematocrit 38.5 % (37.0-47.0); Hemoglobin 13.1 g/dl (12.0-16.0); Mean Corpuscular Hemoglobin 29.6 pg (27.0-33.0); Mean Corpuscular Volume 87.1 fL (80.0-98.0); Mean Platelet Volume 10.9 fL (9.4-12.3); Platelet Count 205 X10*3/uL (160-400); Red Blood Count 4.42 X10*6/uL (4.20-5.50); Red Cell Distribution Width 13.5 % (11.0-16.0); White Blood Count 6.4 X10*3/uL (4.8-10.8)
[2024-11-03 17:08] LABS: Alanine Aminotransferase 29 U/L (0-31); Albumin Level 4.4 g/dL (3.5-5.0); Alkaline Phosphatase 73 U/L (39-117); Anion Gap 14 (12-20); Aspartate Amino Transferase 25 U/L (5-31); Bilirubin Direct < 0.2 mg/dL (0.0-0.5); Bilirubin Total 0.2 mg/dL (0.0-1.0); Blood Urea Nitrogen 12 mg/dL (9-16); Calcium 9.5 mg/dL (8.4-10.2); Carbon Dioxide 25 mmol/L (22-29); Chloride 108 mmol/L (96-108); Estimated Glomerular Filt Rate > 60; Glucose Random 85 mg/dL (60-115); Potassium 3.8 mmol/L (3.3-5.1); Sodium 143 mmol/L (135-145)
[2024-11-03 17:25] LABS: Thyroid Stimulating Hormone 1.89 uIU/mL (0.32-4.0)
[2024-11-03 17:38] LABS: Bacteria Urine 1+ (None Seen); Hyaline Casts Urine 0-2 /LPF (0-2); RBC Urine 0-2 /HPF (0-2)
== END 2024-11-03 15:25 | disposition home or self-care (01) ==
LOC: HO.LAB 15:24
PROVIDERS: PCP Internal Medicine; Visit Provider Internal Medicine
DX: E78.00 Pure hypercholesterolemia, unspecified (principal)
CPT/HCPCS: 36415; 80048; 80076; 81001; 84443; 85027

== ENCOUNTER 2025-02-14 14:20 | Outpatient (AMB) | payer MEDICARE, MEDICAID, SELFPAY ==
--- OUTSIDE RECORDS SUMMARY | 2024-09-06 05:20 | XMS_ITS ---
Author Organization [facility] Address [address] [place] [address] Care Team Providers Care Auto Transmission Technician Name Role Phone ROSITA WILSON Primary Care Provider Masoud Burton Jr Unavailable REASON FOR VISIT Patient presents today for gerd Encounters Encounter Location Date Provider Diagnosis [facility] [address] [place] [address] 09/06/2024 Masoud Borja Jr Plan Of Treatment Next Appt Details Provider Name:Masoud baldwin Jr, 12/17/2025 10:00:00 AM, [address], [address], [place], [address], Progress Notes * MARGE POST EDOB: [birth year] (64 yo F)Acc No.[id number]:09/06/2024 Progress Notes Patient: MARGE VERMA Provider: Nam Borja MD :1960 A ge:63 Y S ex:Female Date:09/06/2024 Address:[address] [facility] [address] , [id number] Pcp:ROSITA WILSON Subjective: * Chief Complaints: * [...] 0 09/06/2024 Generated for Simon brewer/Sushant/Sathyaitting on: 0 02/14/2025 03:23 PM EDT
--- NOTE | 2025-02-14 14:57 | A.OFFPC_ITS ---
Vital Signs 02/14/25 15:02 Height 5 ft 1 in Weight 69.4 kg BMI 28.9 BP 120/68 Respiration 16 Pulse 66 Pulse Source Pulse Oximeter Temp 97.2 F Temp Source Temporal Artery Scan Pulse Oximetry (%) 98 Oxygen Delivery Method Room Air Intake Visit Reasons: Discuss C-Pap Pediatric Acute Care Unit Nurse Required: No Accompanied by: Self / Same As Patient Allergies gabapentin (GABAPENTIN) Allergy (Severe, Verified 02/14/25 14:57) CHEST PAIN meloxicam Allergy (Unknown, Verified 02/14/25 14:57) Unknown From FLAGYL Allergy (Intermediate, Uncoded 02/14/25 14:57) GI UPSET Medication List - Last Reconciled 02/14/25 by OG Ross albuterol sulfate 90 mcg/actuation (Ventolin HFA) inhalation atorvastatin 40 mg PO DAILY betamethasone dipropionate 0.05% 1 appl topical BID cholecalciferol (vitamin D3) (Vitamin D3) 50 mcg PO DAILY dicyclomine 20 mg PO QID levothyroxine 200 mcg PO DAILY omeprazole 40 mg PO QAM Tobacco use date assessed: 11/01/24 Dental Screening Dental Screen Date: 11/01/24 HPI HPI Comments History of Present Illness Details 64-year-old female with history of asthm a, hypothyroidism, GERD, IBS, hyperlipidemia, ELINOR presents to the office today for management of chronic conditions. Mild intermittent asthma-no maintenance inhalers. Albuterol use about 2-3 times weekly depending on whether and which he is doing. No recent exacerbation IBS-both constipation and diarrhea. Well managed overall with dicyclomine Hypothyroidism-postsurgical. euthyroid on last labs. On levothyroxine 200 mcg daily GERD-stable on omeprazole ELINOR-has been without her CPAP for several weeks. Reports her company, [employer], requires additional documentation before she can receive additional equipment. She reports her CPAP machine itself is breaking, occasionally does not plug-in well, and is over 7 years old. She did have sleep study in 2019 showing moderate to severe apnea. She states without her machine, she has been snoring and experiencing apneic episodes-waking up a lot. In the morning feels more fatigued with decreased energy. 10 cmH2O setting per patient. Concerns: None Health maintenance: Last screening mammogram 04/2024 with 1 year follow-up advised, negative for malignancy Last Pap smear 03/2024, 5 year follow-up Last screening colonoscopy 02/2020 with 10 year follow-up advised ROS: General: No fevers, malaise, unintentional weight loss HEENT: No blurred vision, diplopia. No sore throat, nasal congestion, rhinorrhea, sinus pain, ear pain Cardiovascular: No chest pain, palpitations, or leg edema Respiratory: No shortness of breath, wheezing, cough GI: No abdominal pain, nausea, vomiting, diarrhea, constipation, melena, hematochezia : No dysuria, hematuria, increased urinary frequency, decreased urinary output MSK: No myalgia, back pain Neuro: No headaches, weakness, paresthesias Skin: No rashes or lesions EXAM: Constitutional - Awake and Alert, No apparent distress Eyes - PERRL Cardiovascular - S1S2, RRR, No edema Respiratory - Normal lung expansion, Normal respiratory effort, No respiratory distress, CTA bilaterally Extremities - no calf tenderness bilaterally, no swelling Skin - Warm/Dry Neurological - Alert & oriented x3 Psychological - Appropriate affect [facility] Medical History (Updated 02/14/25 @ 15:30 by OG Ross) ELINOR (obstructive sleep apnea) IBS (irritable bowel syndrome) Asthma Colonic polyp Degenerative disc disease Hypothyroidism Hypercholesterolemia Surgical History History of colonoscopy (~03/08/20) History of foot surgery History of surgery on wrist History of bilateral tubal ligation History of cholecystectomy History of appendectomy History of thyroidectomy Family History (Updated 11/01/24 @ 13:48 by Caro Sanchez MA) Father CAD (coronary artery disease) Mother COPD (chronic obstructive pulmonary disease) Sister Breast cancer, Onset Age: 57 Maternal Grandmother Stroke Aneurysm Paternal Uncle Colon cancer Social History Housing: House Alcohol intake: never Patient Tobacco Use Status: Never used Tobacco e-Cigarette/Vaping Use: Never Used service: No Current occupational status: disabled 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 Kelechi Caceres, Tiffanie Pruett, Myles Ramos and colleagues, with an educational neo from [employer]. Physical exam (Primary Care) Vital Signs: Last Vital Signs Temp 97.2 F 02/14/25 15:02 Pulse 66 02/14/25 15:02 Resp 16 02/14/25 15:02 BP 120/68 02/14/25 15:02 Pulse Ox 98 02/14/25 15:02 Oxygen Delivery Method Room Air 02/14/25 15:02 BMI result Body Mass Index 28.9 Tobacco/Smoking Status: Tobacco use Status Tobacco use date assessed 11/01/24 02/14/25 14:59 Patient Tobacco Use Status Never used Tobacco 02/14/25 14:59 e-Cigarette/Vaping Use Never Used 02/14/25 14:59 Thrive Assessment: Date of Thrive Assessment Date Thrive assessed 11/01/24 02/14/25 14:59 Coding Level of Care Code Est Pt Level 4 (41761) Complex EM visit Add On G2211 Diagnoses ELINOR (obstructive sleep apnea) G47.33 Hypercholesterolemia E78.00 Hypothyroidism E03.9 IBS (irritable bowel syndrome) K58.9 Asthma J45.909 Assessment & Plan Assessment & Plan (1) ELINOR (obstructive sleep apnea): Code(s): G47.33 - Obstructive sleep apnea (adult) (pediatric) Category: Medical Plan: CPAP machine and supplies ordered. Continue nightly use (2) Hypercholesterolemia: Code(s): E78.00 - Pure hypercholesterolemia, unspecified Category: Medical Plan: Lipid panel ordered for next visit. Continue atorvastatin. Continue diet low in saturated fats and highly processed foods (3) Hypothyroidism: Comment: surgical Code(s): E03.9 - Hypothyroidism, unspecified Category: Medical Plan: TSH within normal limits. Continue levothyroxine 200 mcg daily (4) IBS (irritable bowel syndrome): Code(s): K58.9 - Irritable bowel syndrome, unspecified Category: Medical Plan: Stable. Continue dicyclomine and avoid known triggering foods (5) Asthma: Code(s): J45.909 - Unspecified asthma, uncomplicated Category: Medical Plan: Stable. Continue albuterol only as needed for shortness of breath and wheezing. Continue for allergy injections Plan Follow-up in 6 months with labs completed prior to visit Orders: Orders Lipid Panel 6 Months E03.9 - Hypothyroidism, unspecified, E78.00 - Pure hy percholesterolemia, unspecified, J45.909 - Unspecified asthma, uncomplicated, K58.9 - Irritable bowel syndrome, unspecified Basic Metabolic Panel 6 Months E03.9 - Hypothyroidism, unspecified, E78.00 - Pure hypercholesterolemia, unspecified, J45.909 - Unspecified asthma, uncomplicated, K58.9 - Irritable bowel syndrome, unspecified Liver Panel 6 Months E03.9 - Hypothyroidism, unspecified, E78.00 - Pure hypercholesterolemia, unspecified, J45.909 - Unspecified asthma, uncomplicated, K58.9 - Irritable bowel syndrome, unspecified TSH reflex Free T4 6 Months E03.9 - Hypothyroidism, unspecified, E78.00 - Pure hypercholesterolemia, unspecified, J45.909 - Unspecified asthma, uncomplicated, K58.9 - Irritable bowel syndrome, unspecified Medications: New CPAP (CPAP Machine/Device) As directed 1 ea 0RF G47.33 - Obstructive sleep apnea (adult) (pediatric) CPAP CPAP tubing/supplies 1 ea 0RF G47.33 - Obstructive sleep apnea (adult) (pediatric)
[2025-02-14 15:02] VITALS: BP 120/68; PULSE 66; RESP 16; TEMP 36.2; O2SAT 98; BMI 28.9
--- OUTSIDE RECORDS SUMMARY | 2025-02-14 15:23 | XMS_ITS | Encounter Summary ---
Author Organization [employer] Address [address] [facility] [address] [place] [address] Care Team Providers Care Water Softener Installer Name Role Phone Unavailable Primary Care Provider [...]
--- OUTSIDE RECORDS SUMMARY | 2025-02-14 15:23 | XMS_ITS | Encounter Summary ---
Author Organization [employer] Address [address] [facility] 7t [place] [address] Care Team Providers Care Stores Despatch Hand Name Role Phone Unavailable Primary Care Provider Unavailabl e Reason for Visit * Reason Onset Date Comments Appointment 03/31/2023 Encounter Details Date Type Department Care Team ([facility] st Contact Info) Description 03/31/2023 Telephone [facility] [address] [place] [address] NeriJose M hermosillo, DMD [address] [place] [address] Appointment Social History Tobacco Use Types Packs/Day [...]
--- OUTSIDE RECORDS SUMMARY | 2025-02-14 15:23 | XMS_ITS | Patient Health Record ---
Author Organization [facility] Address [address] [place] [address] Care Team Providers Care Sterile Preparation Technician Name Role Phone ROSITA WILSON Primary Care Provider Masoud Burton Jr Unavailable Allergies Allergen (clinical drug ingredient) Drug/Non Drug Allergy documented on EMR Reaction Allergy Type Onset Date Status gabapentin Gabapentin Unknown Drug Allergy Activ e metronidazole Metronidazole (uncoded) Unknown Allergy Active Reason For Referral No Information Medications Medication SIG (Take, Route, Frequency, Duration) Notes Start Date End Date Status ProAir HFA Active Vitamin D-3 25 MCG (1000 UT) 1 capsule Orally Once a day Active Dicyclomine HCl 20 MG TAKE 1 TABLET BY M OUTH 2 TO 4 TIMES A DAY for 90 Active Atorvastatin Calcium 40 MG 1 tablet Oral ly Once a day Active Synthroid 200 MCG TAKE 1 TABLET BY BERNARDO TH ONCE A DAY EXCEPT SUNDAYS Oral for 84 Active Omeprazole 40 MG TAKE 1 CAPSULE BY MO UTH EVERY DAY 30 MINUTES BEFORE MORNING MEAL for 90 Active Immunizations Vaccine Route Administration Date Status Comme nts Influenza Unknown 03/29/2019 Administered Influenza Unknown 03/09/2023 Administered Influenza Unknown 09/07/2022 Refused Influenza Unknown 12/13/2024 Refused Social History Tobacco Use: Social History [...] Problem Status W/U Status Risk Notes Problem 874726870 Irritable bowel syndrome with diarrhea (K58.0) Active confirmed Problem 131393493 Gastroesophageal reflux disease without esophagitis (K21.9) Active confirmed Problem 10912922 Colitis (K52.9) Active confirmed Vital Signs Temperature 97.9 degrees Fahrenheit 12/13/2024 Blood pressure diastolic 01 mm Hg 12/13/2024 Height 61 in 12/13/2024 Blood pressure systolic 001 mm Hg 12/13/2024 Weight 150.2 lbs 12/13/2024 BMI 28.38 kg/m2 12/13/2024 Encounters Encounter Location Date Provider Diagnosis [facility] [address] [place] [phone] 12/13/2024 Masoud Borja Jr Gastroesophageal reflux disease without esophagitis K21.9 and Irritable bowel syndrome with diarrhea K58.0 [facility] [address] [place] [phone] 09/04/2024 Masoud Borja Jr Assessments Encounter Date Diagnosis (ICD Code) Assessment Notes Treatment Notes Treatment Clinical Notes Section Notes 12/13/2024 Irritable bowel syndrome with diarrhea (ICD-10 - K58.0) We discussed gastroesophageal reflux disease today. We discussed diet, lifestyle modifications, and weight management. She is doing well and will continue her present regimen. IBS symptoms are also doing well on dicyclomine which she takes about twice daily. She will continue this. She can use antidiarrheals on a as needed basis if necessary. We discussed fiber supplementation as well. Follow-up will be in 12 months. 12/13/2024 Gastroesophageal reflux disease without esophagitis (ICD-10 - K21.9) We discussed gastroesophageal reflux disease today. We discussed diet, lifestyle modifications, and weight management. She is doing well and will continue her present regimen. IBS symptoms are also doing well on dicyclomine which she takes about twice daily. She will continue this. She can use antidiarrheals on a as needed basis if necessary. We discussed fiber supplementation as well. Follow-up will be in 12 months. Plan Of Treatment Future Test Test Name Order Date UPPER GI ENDOSCOPY 02/21/2020 COLONOSCOPY 02/21/2020 Next Appt Details Provider Name:Masoud Ruggiero Tayeelana chowteresa Guillen, 12/17/2025 10:00:00 AM, [address], [address], [place], [address], Insurance Providers Payer Name Payer Address Payer Phone Subscriber Number Group Number Insured Name Patient Relationship to Insured Coverage Start Date Coverage End Date MEDICARE OF [place] [address] [place] [address] [id number] MARGE POST Self - patient is the insured MEDICAID OF [id number] [address] [place] [phone] [id number] MARGE POST Self - patient is the insured Medical (General) History Medical History History ICD Code Colonoscopy 03/08/20, normal sigmoid biopsies. Hyperplastic polyp 10 year recall Gastroesophageal reflux dise ase, EGD 03/08/20, no H. pylori or Zhao's esophagus. thyroidectomy/Angle's thyroiditis cholecystectomy appendectomy headaches De Quervain's tenosynovitis left and rig ht with cyst on the right Cataract repair 09/12 Surgical History Surgery Date(Month/Year) Tubal ligation Cholecystectomy Appendectomy
--- OUTSIDE RECORDS SUMMARY | 2025-02-14 15:23 | XMS_ITS | Clinical Summary ---
Author Organization [employer] Address [address] [facility] 7[address] [place] [address] Care Team Providers Care Reimbursement Manager Name Role Phone Unavailable Primary Care Provider [...] Screening 1961 SDOH Screening 1961 Sigmoidoscopy 1961 Disability Screening 1961 Alcohol/Substance Use Screening 1973 Hepatitis C [...] COVID-19 Vaccine ( season) 2024 05/08/2021, 09/17/2020 Dental X-Ray: Full Mouth 02/27/2024 021, 06/30/2016, 12/03/2008 Influenza Vaccine (#1) 2025 04/28/2015, 2009 Tobacco Screening 04/07/2025 04/07/2024 RSV Patients and [...] patient's age to complete this topic Meningococcal B Vaccine Aged Out No l onger eligible based on patient's age to complete [...] Most Recently Relevant to Health Maintenance [facility] ST[facility]
== END 2025-02-14 15:22 | disposition home or self-care (01) ==
LOC: HO.HMCHD 14:21
PROVIDERS: PCP Internal Medicine; Visit Provider Physician Assistant
DX: G47.33 Obstructive sleep apnea (adult) (pediatric) (principal); E78.00 Pure hypercholesterolemia, unspecified; E03.9 Hypothyroidism, unspecified; K58.9 Irritable bowel syndrome, unspecified; J45.909 Unspecified asthma, uncomplicated

== ENCOUNTER → 2025-02-14 14:20 | Outpatient (BNVA) | payer MEDICARE, MEDICAID, SELFPAY | PROVIDERS: PCP Internal Medicine; Visit Provider Physician Assistant | DX: G47.33 Obstructive sleep apnea (adult) (pediatric) (principal); E78.00 Pure hypercholesterolemia, unspecified; E89.0 Postprocedural hypothyroidism; K58.2 Mixed irritable bowel syndrome; J45.20 Mild intermittent asthma, uncomplicated; K21.9 Gastro-esophageal reflux disease without esophagitis; Z79.899 Other long term (current) drug therapy | CPT/HCPCS: 99212 ==

== ENCOUNTER 2025-02-14 15:27 | Outpatient (AMB) | payer MEDICARE, MEDICAID, SELFPAY | END 2025-02-14 15:28 | disposition home or self-care (01) | LOC: HO.HMGAL 15:27 | PROVIDERS: PCP Internal Medicine; Visit Provider Registered Nurse Emergency | DX: J30.89 Other allergic rhinitis (principal) | CPT/HCPCS: 95117; 95165 ==

== ENCOUNTER 2025-03-14 09:26 | Outpatient (AMB) | payer MEDICARE, MEDICAID, SELFPAY ==
--- OUTSIDE RECORDS SUMMARY | 2024-09-06 05:20 | XMS_ITS ---
Author Organization [facility] Address [address] [place] [address] Care Team Providers Care Ultrasound Supervisor Name Role Phone ROSITA WILSON Primary Care Provider Masoud Burton Jr Unavailable [phone] REASON FOR VISIT Patient presents today for gerd Encounters Encounter Location Date Provider Diagnosis [facility] [address] [place] [address] 09/06/2024 Masoud Borja Jr Plan Of Treatment Next Appt Details Provider Name:Masoud baldwin Jr, 12/17/2025 10:00:00 AM, [address], [address], [place], [address], Progress Notes * MARGE OPST EDOB: [birth year] (64 yo F)Acc No.[id number]:09/06/2024 Progress Notes Patient: MARGE VERMA Provider: Nam Borja MD :1960 A ge:63 Y S ex:Female Date:09/06/2024 Address:[address] [facility] [address] , [id number] Pcp:ROSITA WILSON Subjective: * Chief Complaints: * [...] 09/06/2024 Generated for Simon brewer/Sushant/Sathyaitting on: 0 03/14/2025 11:14 AM EDT
--- OUTSIDE RECORDS SUMMARY | 2025-03-14 11:15 | XMS_ITS | Patient Health Record ---
Author Organization [facility] Address [address] [place] [address] Care Team Providers Care Order Packer Or Packager Name Role Phone ROSITA WILSON Primary Care Provider Masoud Burton Jr Unavailable [phone] Allergies Allergen (clinical drug ingredient) Drug/Non Drug [...] Problem Status W/U Status Risk Notes Problem 515289559 Irritable bowel syndrome with diarrhea (K58.0) Active confirmed Problem 648734446 Gastroesophageal reflux disease without esophagitis (K21.9) Active confirmed Problem 01812962 Colitis (K52.9) Active confirmed Vital Signs Temperature 97.9 degrees Fahrenheit 12/13/2024 Blood pressure diastolic 01 mm Hg 12/13/2024 Height 61 in 12/13/2024 Blood pressure systolic 001 mm Hg 12/13/2024 Weight 150.2 lbs 12/13/2024 BMI 28.38 kg/m2 12/13/2024 Encounters Encounter Location Date Provider Diagnosis [facility] [address] [place] [phone] 12/13/2024 Masoud Borja Jr Gastroesophageal reflux disease without esophagitis K21.9 and Irritable bowel syndrome with diarrhea K58.0 [facility] [address] [place] [phone] 09/04/2024 Masoud Borja Jr Assessments Encounter Date [...] 10:00:00 AM, [address], [address], [place], [address], Insurance Providers Payer Name Payer Address Payer Phone Subscriber Number Group Number Insured Name Patient Relationship to Insured Coverage Start Date Coverage End Date MEDICARE OF [place] [address] [place] [address] [id number] MARGE POST Self - patient is the insured MEDICAID OF [facility] [address] [place] [phone] [id number] MARGE POST Self - patient is the [...]
--- OUTSIDE RECORDS SUMMARY | 2025-03-14 11:15 | XMS_ITS | Encounter Summary ---
Author Organization [employer] Address [address] [facility] 7t [place] [address] Care Team Providers Care It Quality Assurance Analyst Name Role Phone Unavailable Primary Care Provider [...]
--- OUTSIDE RECORDS SUMMARY | 2025-03-14 11:15 | XMS_ITS | Clinical Summary ---
Author Organization [employer] Address [address] [facility] 7t [place] [address] Care Team Providers Care Wind Development Director Name Role Phone Unavailable Primary Care Provider [...] Dental Oral Exam 09/23/2023 03/23/2023, , 12/04/2008 Dental X-Ray: Full Mouth 02/27/2024 021, 06/30/2016, 12/03/2008 COVID-19 Vaccine ( season) 2025 05/08/2021, 09/17/2020 Influenza Vaccine (#1) 2025 04/28/2015, 2009 Tobacco [...] Most Recently Relevant to Health Maintenance [facility] ST[facility]ULT
--- OUTSIDE RECORDS SUMMARY | 2025-03-14 11:15 | XMS_ITS | Encounter Summary ---
Author Organization [email or web address] Address [address] [facility] 7t [place] [address] Care Team Providers Care Oracle Financial Application Developer Name Role Phone Unavailable Primary Care Provider Unavailabl e Reason for Visit * Reason Onset Date Comments Appointment 03/31/2023 Encounter Details Date Type Department Care Team ([facility] st Contact Info) Description 03/31/2023 Telephone [facility] [address] [place] [address] NeriJose M hermosillo, DMD [address] [place] [address] Appointment Social History Tobacco Use Types Packs/Day [...]
== END 2025-03-14 09:27 | disposition home or self-care (01) ==
LOC: HO.HMGAL 09:26
PROVIDERS: PCP Internal Medicine; Visit Provider Registered Nurse Emergency
DX: J30.89 Other allergic rhinitis (principal)
CPT/HCPCS: 95117; 95165

== ENCOUNTER 2025-03-31 09:25 | Emergency (ER) | payer MEDICARE, MEDICAID, SELFPAY ==
--- OUTSIDE RECORDS SUMMARY | 2024-09-06 05:20 | XMS_ITS ---
Author Organization [facility] Address [address] [place] [address] Care Team Providers Care Claim Processing Specialist Name Role Phone ROSITA WILSON Primary Care Provider Masoud Burton Jr Unavailable REASON FOR VISIT Patient presents today for gerd Encounters Encounter Location Date Provider Diagnosis [facility] [address] [place] [address] 09/06/2024 Masoud Borja Jr Plan Of Treatment Next Appt Details Provider Name:Masoud baldwin Jr, 12/17/2025 10:00:00 AM, [address], [address], [place], [address], Progress Notes * MARGE POST EDOB: [birth year] (64 yo F)Acc No.[id number]:09/06/2024 Progress Notes Patient: MARGE VERMA Provider: Nam Borja MD :1960 A ge:63 Y S ex:Female Date:09/06/2024 Address:[address] [address] , [id number] Pcp:ROSITA WILSON Subjective: * Chief Complaints: * [...] 09/06/2024 Generated for Simon brewer/Sushant/Sathyaitting on: 1 10:07 AM EDT
--- NOTE | ~2025-03-31 | XR_ITS ---
CLINICAL HISTORY: pain 3 views right foot Comparison: None Findings: Avulsion fracture talar beak. No periostitis or bony destruction. Joint intervals are preserved. No marginal erosions or overhanging osteophytes. Calcaneus and subtalar joint intact. No significant arthritic change. Posterior and plantar calcaneal enthesophyte. Normal bone mineralization and soft tissues. Normal pre-Achilles fat pad. No radiopaque foreign body. Impression: 1. Avulsion fracture talar beak. This document has been electronically signed by: Jaylon Adams MD on 03/31/2025 10:18:39
--- NOTE | ~2025-03-31 | XR_ITS ---
CLINICAL HISTORY: pain 3 views right ankle Comparison: None Findings: Avulsion fracture versus spur talar beak correlate with palpation. Ankle mortise intact. Normal plafond. No osteochondral lesions. Calcaneus and subtalar joint intact. No significant arthritic change. Posterior and plantar calcaneal enthesophyte Soft tissue swelling laterally. Normal pre-Achilles fat pad. No radiopaque foreign body. Impression: 1. Suspect avulsion fracture rather than spur talar beak correlate with palpation. Soft tissue swelling lateral malleolus. Ankle mortise intact. This document has been electronically signed by: Jaylon Adams MD on 03/31/2025 10:18:47
[2025-03-31 09:28] VITALS: BP 176/75; PULSE 77; RESP 18; TEMP 36.5; O2SAT 96; BMI 28.3
[2025-03-31 09:39] VITALS: BP 176/75; PULSE 77; RESP 18; TEMP 36.5; O2SAT 96
--- NOTE | 2025-03-31 09:44 | PC.NURSE ---
Patient presents to ED c/o right ankle pain after twisting it yesterday Patient rates pain 8/10 radiating up right paige but not past knee +CMS limited ROM with pain Denies thinner, SOB, numbness, tingling, LOC after fall, - headstrike Patient came into ED in wheelchair Ice pack applied to affected area Provider in to see patient plan of care on going Patient awaiting xray of ankle
[2025-03-31 09:47] VITALS: BP 131/86; PULSE 74; RESP 16; TEMP 36.5; O2SAT 96
--- NOTE | 2025-03-31 10:01 | ED.LOWEXIN ---
HPI - Extremity Injury (Lower) General Chief Complaint: Extremity Injury, Lower Stated Complaint: r foot inj fall yesterday Time Seen by Provider: 03/31/25 09:34 Source: patient and RN notes reviewed Mode of arrival: ambulatory Limitations: no limitations History of Present Illness ED Provider: Maritza Macias PA-C HPI Narrative: This is a 64-year-old female, with a past medical history of asthma, hypothyroidism, GERD, IBS, hyperlipidemia, ELINOR, who presents emergency department concerns of right foot and ankle pain. Patient states that she is walking out of the store and tripped over her other foot. Patient reports that she struck her left knee on the pavement. Denies head strike or LOC. She is not on anticoagulation. She denies feeling any popping or sensation. Reporting pain with weight-bearing. She is able to partially weightbear. Denies previous injury to this foot and ankle in the past. No other complaints or concerns at this time. MD complaint: ankle injury and foot injury Onset (ago): day(s) Type of Injury: inversion Place: street/outdoors Exacerbating factors: weight bearing, movement and palpation Associated symptoms: swelling and able to partially bear weight Other symptoms: none Related Data Home Medications ?Medication ?Instructions ?Recorded ?Confirmed dicyclomine 20 mg tablet 20 mg PO QID 11/26/21 02/14/25 omeprazole 40 mg capsule,delayed 40 mg PO QAM 10/14/22 02/14/25 release albuterol sulfate 90 mcg/actuation inhalation 01/10/24 02/14/25 aerosol inhaler (Ventolin HFA) betamethasone dipropionate 0.05 % 1 appl topical BID 01/10/24 02/14/25 topical cream cholecalciferol (vitamin D3) 50 50 mcg PO DAILY 01/10/24 02/14/25 mcg (2,000 unit) tablet (Vitamin D3) Previous Rx's ?Medication ?Instructions ?Recorded levothyroxine 200 mcg tablet 200 mcg PO DAILY #90 tabs 11/14/24 atorvastatin 40 mg tablet 40 mg PO DAILY #90 tabs 01/31/25 CPAP #1 ea 02/14/25 CPAP (CPAP Machine/Device) #1 ea 02/14/25 acetaminophen 500 mg tablet 1,000 mg (2 x 500 mg) PO QID PRN 03/31/25 (Tylenol Extra Strength) pain #30 tabs ibuprofen 600 mg tablet 600 mg PO Q6H PRN pain #30 tabs 03/31/25 morphine 15 mg immediate release 15 mg PO Q6H PRN severe pain 03/31/25 tablet (scale score 7-10) #7 tabs ondansetron 4 mg disintegrating 4 mg PO Q6H PRN nausea and 03/31/25 tablet vomiting #10 tabs Allergies Allergy/AdvReac Type Severity Reaction Status Date / Time gabapentin (GABAPENTIN) Allergy Severe CHEST PAIN Verified 03/31/25 09:31 meloxicam Allergy Unknown Unknown Verified 03/31/25 09:31 From FLAGYL Allergy Intermediate GI UPSET Uncoded 03/31/25 09:31 Review of Systems Review of Systems: Constitutional : No Fever, No Chills ENT/Mouth : No sore throat, No Rhinorrhea Eyes: No Eye Pain, No Swelling, No Redness Cardiovascular : No Chest Pain, No SOB Respiratory : No Cough, No Sputum Gastrointestinal : No Nausea, No Vomiting, No Diarrhea, No abdominal Pain Genitourinary : No Dysuria, No Hematuria Musculoskeletal : + joint pain, No Myalgias, No Joint Swelling Skin : No Skin Lesions Neuro : No Weakness, No Numbness, No Headache All other systems reviewed and are negative Yes all other systems are reviewed and are negative Constitutional: Constitutional: Reports as per [facility] Past Medical History Medical History (Updated 03/31/25 @ 11:56 by OG [place]) ELINOR (obstructive sleep apnea) IBS (irritable bowel syndrome) Asthma Colonic polyp Degenerative disc disease Hypothyroidism Hypercholesterolemia Surgical History History of colonoscopy (~03/08/20) History of foot surgery History of surgery on wrist History of bilateral tubal ligation History of cholecystectomy History of appendectomy History of thyroidectomy Family History Family History (Updated 11/01/24 @ 13:48 by Caro Sanchez MA) Father CAD (coronary artery disease) Mother COPD (chronic obstructive pulmonary disease) Sister Breast cancer, Onset Age: 57 Maternal Grandmother Stroke Aneurysm Paternal Uncle Colon cancer Social History Social History Housing: House Alcohol intake: never Patient Tobacco Use Status: Never used Tobacco Smoked in Last 30 Days: No e-Cigarette/Vaping Use: Never Used Use of substances other than those prescribed or required for medical reasons: Yes Substance Use Type: Marijuana Advance Directives: No Advance Directives Information Provided: No Do you have a plan to hurt others: No Plan Patient : No service: No Current occupational status: disabled 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 No acute distress. HEENT: Normal inspection CVS: Normal heart rate and rhythm. Pulses normal. Respiratory: No respiratory distress Skin: Warm, dry, no rashes noted to exposed skin. Normal skin color. Normal skin turgor. Extremities: Right dorsum of the foot with diffuse edema noted with point tenderness palpation along the forefoot, no open wounds or lacerations, she does have mild tenderness palpation along the right lateral malleolus. Able to plantar and dorsiflex. Achilles tendon is intact. Neuro: Oriented X 3. No motor deficit. No sensory deficit. Vital Signs: Vital Signs: Last Vital Signs Temp 97.7 F 03/31/25 12:19 Pulse 72 03/31/25 12:19 Resp 18 03/31/25 12:19 BP 132/82 03/31/25 12:19 Pulse Ox 96 03/31/25 12:19 O2 Del Method Room Air 03/31/25 12:19 BMI result Body Mass Index 28.3 Medications Administered Discontinued Medications Generic Name Dose Route Start Last Admin Trade Name Freq PRN Reason Stop Dose Admin Acetaminophen 975 mg 03/31/25 10:15 03/31/25 10:35 Acetaminophen 325 Mg Tablet PO 03/31/25 10:16 975 mg ONCE ONE Administration Calcium Carbonate 1,500 mg 03/31/25 11:52 03/31/25 12:05 Calcium Carbonate 750 Mg Tab.Chew PO 03/31/25 11:53 Not Given ONCE ONE Diphtheria/Tetanus/Acell Pertussis 0.5 ml 03/31/25 10:21 03/31/25 10:36 Diphth,Pertus(Acell),Tet Adult 0.5 Ml Syringe IM 03/31/25 10:22 0.5 ml .ONCE ONE Administration Morphine Sulfate 15 mg 03/31/25 10:15 03/31/25 10:36 Morphine Sulfate Immed Release 15 Mg Tablet PO 03/31/25 10:16 15 mg ONCE ONE Administration Ondansetron HCl 4 mg 03/31/25 11:59 03/31/25 12:02 Ondansetron Odt 4 Mg Tab.Castillo CAMPOSU 03/31/25 12:00 4 mg ONCE ONE Administration Medical Decision Making Medical Decision Making [facility] Narrative: This is a 64-year-old female who presents emergency department with concerns of right pain after inversion injury which occurred yesterday. On arrival, patient hypertensive at 176/75, all other vital signs within normal limits. She is ambulatory with antalgic gait secondary to pain. Differential diagnoses include sprain, strain, contusion, fracture, dislocation. X-ray was performed revealing a talar fracture. Discussed findings with patient. She was medicated with Tylenol and morphine. She was placed in a short walking boot with stirrup splint. Given referral to Podiatry for follow-up. She also would like a referral to Orthopedics. Discharged on Tylenol, ibuprofen, also given short course of morphine as well as Zofran. Patient reports that she developed some gastritis like pain after drinking orange juice with the morphine in turning over for the splinting, she had 1 episode of vomiting which was alleviated after taking Zofran. Given strict return precautions, patient stable for discharge. Differential Diagnosis Differential Diagnoses: The differential diagnosis associated with the presentation includes See above Radiology Impression Discussion of test interpretation with radiology: I have reviewed the radiologist's reading. Radiologist Impression: Findings: Avulsion fracture talar beak. No periostitis or bony destruction. Joint intervals are preserved. No marginal erosions or overhanging osteophytes. Calcaneus and subtalar joint intact. No significant arthritic change. Posterior and plantar calcaneal enthesophyte. Normal bone mineralization and soft tissues. Normal pre-Achilles fat pad. No radiopaque foreign body. Impression: 1. Avulsion fracture talar beak. This document has been electronically signed by: Jaylon Adams MD on 03/31/2025 10:18:39 Dictated By: Jaylon Adams MD Findings: Avulsion fracture versus spur talar beak correlate with palpation. Ankle mortise intact. Normal plafond. No osteochondral lesions. Calcaneus and subtalar joint intact. No significant arthritic change. Posterior and plantar calcaneal enthesophyte Soft tissue swelling laterally. Normal pre-Achilles fat pad. No radiopaque foreign body. Impression: 1. Suspect avulsion fracture rather than spur talar beak correlate with palpation. Soft tissue swelling lateral malleolus. Ankle mortise intact. This document has been electronically signed by: Jaylon Adams MD on 03/31/2025 10:18:47 Dictated By: Jaylon Adams MD Procedures Orthopedic Splinting/Casting Injury #1: Side: right Lower Extremity Injury Location: ankle and foot Lower Extremity Immobilizer: posterior splint and stirrup splint Other Orthopedic Equipment: crutches Discharge Plan Discharge Clinical Impression: Avulsion fracture of talus Patient Disposition: Home, Self-Care Instructions: Crutch Instructions (ED), Foot Fracture in Adults (ED) Additional Instructions: You were seen in the emergency department after injuring your right foot and ankle yesterday. You unfortunately fractured your talus. We placed you in a splint, please keep splint on until you see the specialist. Do not get splint wet. I gave you a referral to the resource room special education teacher as well as orthopedist. Please call on Wednesday for follow-up. Do not weightbear on your foot until you are cleared by the specialist. Use crutches. Rest, elevate, and alternate between ibuprofen and or Tylenol as needed for pain and symptoms. Morphine as a strong narcotic pain medication, please be advised that this can cause drowsiness, do not drink alcohol or drive while taking this medication. [place] for severe pain only. Please be advised that we can not refill this medication therefore please follow-up with your primary care. If any new or worsening symptoms occur including but not limited to decreased sensation to your toes, feeling as though you are splint is too tight, discoloration to your toes, please seek emergent care. Prescriptions: New ibuprofen 600 mg tablet 600 mg PO Q6H PRN (Reason: pain) Qty: 30 0RF acetaminophen [Tylenol Extra Strength] 500 mg tablet 1,000 mg PO QID PRN (Reason: pain) Qty: 30 0RF morphine 15 mg tablet 15 mg PO Q6H PRN (Reason: severe pain (scale score 7-10)) Qty: 7 0RF Rx Instructions: Partial Fill upon patient request. ondansetron 4 mg tablet,disintegrating 4 mg PO Q6H PRN (Reason: nausea and vomiting) Qty: 10 0RF No Action levothyroxine 200 mcg tablet 200 mcg PO DAILY Qty: 90 1RF atorvastatin 40 mg tablet 40 mg PO DAILY Qty: 90 1RF omeprazole 40 mg capsule,delayed release(DR/EC) 40 mg PO QAM dicyclomine 20 mg tablet 20 mg PO QID albuterol sulfate [Ventolin HFA] 90 mcg/actuation HFA aerosol inhaler inhalation betamethasone dipropionate 0.05 % cream 1 appl topical BID cholecalciferol (vitamin D3) [Vitamin D3] 50 mcg (2,000 unit) tablet 50 mcg PO DAILY (DME) CPAP Machine/Device Device See Rx Instructions .Route Qty: 1 0RF Rx Instructions: As directed (DME) CPAP Device See Rx Instructions .Route Qty: 1 0RF Rx Instructions: CPAP tubing/supplies Referrals: [facility] Orthopedic Surgeons [Provider Group] [facility] Podiatry [Provider Group, Podiatry] Interventions: ED Discharge Assessment Last Done: 03/31/25 12:19 Discharge Date/Time: 03/31/25 12:20 Print Language: Singaporean
--- OUTSIDE RECORDS SUMMARY | 2025-03-31 10:07 | XMS_ITS | Encounter Summary ---
Author Organization [employer] Address [address] [facility] [address] [place] [address] Care Team Providers Care Telemetry Tech Name Role Phone Unavailable Primary Care Provider [...]
--- OUTSIDE RECORDS SUMMARY | 2025-03-31 10:07 | XMS_ITS | Clinical Summary ---
Author Organization [employer] Address [address] [facility] [address] [place] [address] Care Team Providers Care Hair Preparer Name Role Phone Unavailable Primary Care Provider [...] Most Recently Relevant to Health Maintenance Insurance [facility] MEDICAID STAND ADULT
--- OUTSIDE RECORDS SUMMARY | 2025-03-31 10:07 | XMS_ITS | Patient Health Record ---
Author Organization [facility] Address [address] [place] [address] Care Team Providers Care Garment Sewer Hand Name Role Phone ROSITA WILSON Primary [...] M OUTH 2 TO 4 TIMES A DAY; Duration: 90 Active Atorvastatin Calcium 40 MG 1 tablet Oral ly Once a day Active Synthroid 200 MCG TAKE 1 TABLET BY BERNARDO TH ONCE A DAY EXCEPT SUNDAYS Oral; Duration: 84 Active Omeprazole 40 MG TAKE 1 CAPSULE BY MO [facility] EVERY DAY 30 MINUTES BEFORE MORNING MEAL; Duration: 90 Active Immunizations Vaccine Route Administration Date [...] Problem Status W/U Status Risk Notes Problem Irritable bowel syndrome with diarrhea (257058370) Irritable bowel syndrome with diarrhea (K58.0) Active confirmed Problem Gastroesophageal reflux disease without esophagitis (121605590) Gastroesophageal reflux disease without esophagitis (K21.9) Active confirmed Problem Colitis (47646814) Colitis (K52.9) Active confi rmed Vital Signs Temperature 97.9 degrees Fahrenheit 12/13/2024 Blood pressure diastolic 01 mm Hg 12/13/2024 Height 61 in 12/13/2024 Blood pressure systolic 001 mm Hg 12/13/2024 Weight 150.2 lbs 12/13/2024 BMI 28.38 kg/m2 12/13/2024 Encounters Encounter Location Date Provider Diagnosis [facility] [address] [place] [phone] 12/13/2024 Masoud Borja Jr Gastroesophageal reflux disease without esophagitis K21.9 and Irritable bowel syndrome with diarrhea K58.0 [facility] [address] [place] [phone] 09/04/2024 Masoud Borja Jr Assessments Encounter Date [...] Ruggiero Tayeelana chowteresa Guillen, 12/17/2025 10:00:00 AM, [address] [place] [address], [address], [place], [phone], Insurance Providers Payer Name Payer Address Payer Phone Subscriber Number Group Number Insured Name Patient Relationship to Insured Coverage Start Date Coverage End Date MEDICARE OF [place] [address] [place] [id number] SEJALMARGE Self - patient is the insured [facility] [address] [place] [address] [id number] MARGE POST Self - patient is the [...]
--- OUTSIDE RECORDS SUMMARY | 2025-03-31 10:07 | XMS_ITS | Encounter Summary ---
Author Organization [employer] Address [address] [facility] [address] [place] [address] Care Team Providers Care Case Consultant Name Role Phone Unavailable Primary Care Provider Unavailabl e Reason for Visit * Reason Onset Date Comments Appointment 03/31/2023 Encounter Details Date Type Department Care Team ([facility] st Contact Info) Description 03/31/2023 Telephone [facility] [address] [place] [address] NeriJose M hermosillo, DMD [address] [place] [address] Appointment Social History Tobacco Use Types Packs/Day [...]
[2025-03-31 10:29] VITALS: BP 132/82; PULSE 72; RESP 18; TEMP 36.5; O2SAT 96
[2025-03-31] MEDS: Diphth,Pertus(ACell),Tet Adult 0.5 ML SYRINGE IM (10:36)
[2025-03-31] MEDS: Morphine Sulfate Immed Release 15 MG TABLET PO (10:36)
--- NOTE | 2025-03-31 11:59 | PC.NURSE ---
Patient felt nauseous Patient began to vomit small amount no blood noted Its possible it was the OJ the patient consumed this AM Notified provider
[2025-03-31 12:19] VITALS: BP 132/82; PULSE 72; RESP 18; TEMP 36.5; O2SAT 96
== END 2025-03-31 12:20 | disposition home or self-care (01) ==
PROVIDERS: Emergency Provider Emergency Medicine; PCP Internal Medicine
DX: S92.101A Unspecified fracture of right talus, initial encounter for closed fracture (principal); W18.30XA Fall on same level, unspecified, initial encounter; Y93.01 Activity, walking, marching and hiking; Y92.9 Unspecified place or not applicable; Y99.8 Other external cause status; Z23 Encounter for immunization; Z79.899 Other long term (current) drug therapy
CPT/HCPCS: 29515; 73610; 73630; 90471; 90715; 99284

== ENCOUNTER 2025-04-05 11:18 | Outpatient (AMB) | payer MEDICARE, MEDICAID, SELFPAY ==
--- OUTSIDE RECORDS SUMMARY | 2024-09-06 05:20 | XMS_ITS ---
Author Organization [facility] Address [address] [place] [address] Care Team Providers Care Personnel Administrator Name Role Phone ROSITA WILSON Primary Care Provider Masoud Burton Jr Unavailable REASON FOR VISIT Patient presents today for gerd Encounters Encounter Location Date Provider Diagnosis [facility] [address] [place] [address] 09/06/2024 Masoud Borja Jr Plan Of Treatment Next Appt Details Provider Name:Masoud baldwin Jr, 12/17/2025 10:00:00 AM, [address], [address], [place], [address], Progress Notes * MARGE POST EDOB: [birth year] (64 yo F)Acc No.[id number]:09/06/2024 Progress Notes Patient: MARGE VERMA Provider: Nam Borja MD :1960 A ge:63 Y S ex:Female Date:09/06/2024 Address:[address] [facility] [address] , [id number] Pcp:ROSITA WILSON Subjective: * Chief Complaints: * [...] 09/06/2024 Generated for Simon brewer/Sushant/Sathyaitting on: 1 02:31 PM EDT
--- NOTE | 2025-04-05 11:34 | A.OFFVIS_ITS ---
Intake Visit Reasons: Avulsion fracture talar beak. Intake Note: Bela is a 64 year old female who presents today as a new patient for an evaluation of her Avulsion facture and talar break. She was seen on [facility] ED on 03/31/25. She reports injury was due to walking out of a store and she missed a step which then caused her to fall and fracture of her foot on 03/30/25. At the ED they performed an ACL splint and she was prescribed Tylenol, ibuprophen and morphine, due to the vomitting caused by the morphine she has since stoped taking the medication. Allergies gabapentin (GABAPENTIN) Allergy (Severe, Verified 04/05/25 11:34) CHEST PAIN meloxicam Allergy (Unknown, Verified 04/05/25 11:34) Unknown From FLAGYL Allergy (Intermediate, Uncoded 03/31/25 09:31) GI UPSET Medication List - Last Reconciled 04/05/25 by Karen Pope DPM acetaminophen (Tylenol Extra Strength) 1,000 mg (2 x 500 mg) PO QID PRN albuterol sulfate 90 mcg/actuation (Ventolin HFA) inhalation atorvastatin 40 mg PO DAILY betamethasone dipropionate 0.05% 1 appl topical BID cholecalciferol (vitamin D3) (Vitamin D3) 50 mcg PO DAILY CPAP (CPAP Machine/Device) As directed CPAP CPAP tubing/supplies dicyclomine 20 mg PO QID ketorolac 10 mg PO Q8H PRN levothyroxine 200 mcg PO DAILY omeprazole 40 mg PO QAM ondansetron 4 mg PO Q6H PRN HPI Comments Details: The patient is a 64-year-old female with a past medical history as seen below presenting with a right foot and ankle injury sustained from a fall. Patient states she had the injury on March 30 when she tripped while walking out of a building, resulting in an awkward fall onto her knee and twisting of her ankle and foot. Following the fall, she experienced significant swelling and bruising of the right foot and ankle, prompting a visit to the emergency department where x-rays were performed. She was toes she sustained a talar fracture. Patient was placed in a posterior splint and has been nonweightbearing with the use of a walker. Patient states she was previously prescribed morphine but was unable to tolerate it due to nausea and vomiting. Patient has currently been taking Tylenol and ibuprofen with mild relief. She denies any new pedal injuries. She denies any other pedal concerns. Patient was accompanied by her sister. [facility] Medical History (Updated 04/05/25 @ 12:27 by Karen Pope DPM) Right ankle pain Right ankle injury Right foot pain Right foot injury Right ankle sprain Fracture of right talus ELINOR (obstructive sleep apnea) IBS (irritable bowel syndrome) Asthma Colonic polyp Degenerative disc disease Hypothyroidism Hypercholesterolemia Surgical History History of colonoscopy (~03/08/20) History of foot surgery History of surgery on wrist History of bilateral tubal ligation History of cholecystectomy History of appendectomy History of thyroidectomy Family History (Updated 11/01/24 @ 13:48 by Caro Sanchez MA) Father CAD (coronary artery disease) Mother COPD (chronic obstructive pulmonary disease) Sister Breast cancer, Onset Age: 57 Maternal Grandmother Stroke Aneurysm Paternal Uncle Colon cancer Social History Housing: House Alcohol intake: never Patient Tobacco Use Status: Never used Tobacco e-Cigarette/Vaping Use: Never Used Substance Use Type: Marijuana service: No Current occupational status: disabled 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 - Neurological: Reports cold sensation in toes, denies numbness or tingling. All systems reviewed & are unremarkable except as noted in HPI and below Physical Exam Extrem Other: Right lower extremity focused physical exam: Derm: Moderate ecchymosis noted to the foot and lateral aspect of the ankle. No open lesions abrasions or wounds noted. Skin supple and turgor within normal limits. No clinical signs of infection. Vascular: DP/PT pulses palpable. Capillary refill time less than 3 seconds. Temperature gradient warm to warm. Pedal hair absent. No varicosities noted. Edema noted to the foot and ankle. Neuro: Protective sensation is grossly intact. MSK: Pain on palpation to the foot in the area of the TNJ, dorsal midfoot, and lateral aspect of the midfoot. Pain on palpation to the ankle worse to the lateral aspect in the area of the distal fibula. No fluctuance or crepitus noted. No pain on palpation to the proximal aspect of the fibula. Range of motion of the forefoot hindfoot and ankle decreased due to guarding from pain. Patient is nonweightbearing with the use of a walker. Office Procedures AMB Podiatry Dressing Details of Procedure: Posterior splint was applied to the right lower extremity. 08371 - Short leg splint Procedure code (CPT) selection complete Results Reviewed Results Reviewed: Ordered right tib-fib x-rays, and right foot and ankle CT scan to be performed prior to next visit. Podiatry read of Right foot xray (03/31/25): Fracture noted to the head/neck of the talus with a mildly displace avulsion fragment noted. Bone spur noted to the plantar and posterior aspect of the calcaneus. Met adductus noted. No acute dislocations noted. Podiatry read of Right ankle xray (03/31/25): Fracture noted to the head/neck of the talus with a mildly displace avulsion fragment noted. Bone spur noted to the plantar and posterior aspect of the calcaneus. No acute dislocations noted. Right foot xray (03/31/25): Findings: Avulsion fracture talar beak. No periostitis or bony destruction. Joint intervals are preserved. No marginal erosions or overhanging osteophytes. Calcaneus and subtalar joint intact. No significant arthritic change. Posterior and plantar calcaneal enthesophyte. Normal bone mineralization and soft tissues. Normal pre-Achilles fat pad. No radiopaque foreign body. Impression: 1. Avulsion fracture talar beak. Right ankle xray (03/31/25): Findings: Avulsion fracture versus spur talar beak correlate with palpation. Ankle mortise intact. Normal plafond. No osteochondral lesions. Calcaneus and subtalar joint intact. No significant arthritic change. Posterior and plantar calcaneal enthesophyte Soft tissue swelling laterally. Normal pre-Achilles fat pad. No radiopaque foreign body. ------- Impression: 1. Suspect avulsion fracture rather than spur talar beak correlate with palpation. Soft tissue swelling lateral malleolus. Ankle mortise intact. Assessment & Plan Assessment & Plan (1) Right foot pain: Code(s): M79.671 - Pain in right foot Category: Medical (2) Right foot injury: Code(s): S99.921A - Unspecified injury of right foot, initial encounter Category: Medical Qualifiers: Encounter type: initial encounter Qualified Code(s): S99.921A - Unspecified injury of right foot, initial encounter (3) Right ankle sprain: Code(s): S93.401A - Sprain of unspecified ligament of right ankle, initial encounter Category: Medical Qualifiers: Encounter type: initial encounter (4) Fracture of right talus: Code(s): S92.101A - Unspecified fracture of right talus, initial encounter for closed fracture Category: Medical Qualifiers: Encounter type: initial encounter Fracture type: closed Talus locati on: neck (5) Right ankle pain: Code(s): M25.571 - Pain in right ankle and joints of right foot Category: Medical Qualifiers: Chronicity: acute Qualified Code(s): M25.571 - Pain in right ankle and joints of right foot (6) Right ankle injury: Code(s): S99.911A - Unspecified injury of right ankle, initial encounter Category: Medical Qualifiers: Encounter type: initial encounter Qualified Code(s): S99.911A - Unspecified injury of right ankle, initial encounter Plan Patient was informed and verbally consented to the use of an ambient scribe for clinic note documentation during this visit. I discussed with the patient the presence of a talar fracture and the potential risk of avascular necrosis due to limited blood flow to the area. We reviewed the importance of obtaining a CT scan to fully assess the fracture and ensure no further complications are present. I explained the need for non-weightbearing status to prevent further injury and conservative vs. surgical treatment for the condition. We also discussed the prescription of Toradol for pain management and the importance of follow-up in two weeks to monitor progress. - Ordered a CT scan of the right foot and ankle, and right tib/fib xrays to assess the extent of the fracture and rule out further complications. - Prescribed Toradol for pain management. - Posterior splint was applied to the RLE and patient is to be NWB with the use of an assistive device. - Advise non-weightbearing status to prevent further displacement of the fracture. - Patient is to keep the posterior splint clean, dry, and intact. RTC in 2 weeks for re-evaluation and imaging results. Orders: Orders CT foot RT wo IV con Today M79.671 - Pain in right foot, S92.101A - Unspecified fracture of right talus, initial encounter for closed fracture, S93.401A - Sprain of unspecified ligament of right ankle, initial encounter, S99.921A - Unspecified injury of right foot, initial encounter XR tibia fibula RT 2V Today M25.571 - Pain in right ankle and joints of right foot, M79.671 - Pain in right foot, S92.101A - Unspecified fracture of right talus, initial encounter for closed fracture, S93.401A - Sprain of unspecified ligament of right ankle, initial encounter, S99.911A - Unspecified injury of right ankle, initial encounter, S99.921A - Unspecified injury of right foot, initial encounter AMB Podiatry Dressing Today M25.571 - Pain in right ankle and joints of right foot, M79.671 - Pain in right foot, S92.101A - Unspecified fracture of right talus, initial encounter for closed fracture, S93.401A - Sprain of unspecified ligament of right ankle, initial encounter, S99.911A - Unspecified injury of right ankle, initial encounter, S99.921A - Unspecified injury of right foot, initial encounter CT ankle RT wo IV con Today M79.671 - Pain in right foot, S92.101A - Unspecified fracture of right talus, initial encounter for closed fracture, S93.401A - Sprain of unspecified ligament of right ankle, initial encounter, S99.921A - Unspecified injury of right foot, initial encounter Medications: New ketorolac maximum total duration of 5 days from all oral, intranasal, or parenteral formulations 10 mg PO Q8H PRN 20 tabs 0RF Right talar fracture M79.671 - Pain in right foot, S92.101A - Unspecified fracture of right talus, initial encounter for closed fracture, S93.401A - Sprain of unspecified ligament of right ankle, initial encounter, S99.921A - Unspecified injury of right foot, initial encounter Discontinued morphine Partial Fill upon patient request. Discontinued Reason: Patient no longer taking 15 mg PO Q6H PRN 7 tabs 0RF severe pain (scale score 7-10) ibuprofen Discontinued Reason: Doctor's Order 600 mg PO Q6H PRN 30 tabs 0RF pain Coding Level of Care Code New Pt Level 4 (23378) Diagnoses Right foot pain M79.671 Injury of right foot, initial encounter S99.921A Encounter type: initial encounter Right ankle sprain S93.401A Encounter type: initial encounter Fracture of right talus S92.101A Encounter type: initial encounter Fracture type: closed Talus location: neck Acute right ankle pain M25.571 Chronicity: acute Injury of right ankle, initial encounter S99.911A Encounter type: initial encounter CPT Codes Podiatry Dressing - CPT: 79603 - Short leg splint ([id number]) Time Spent (min) 65
--- OUTSIDE RECORDS SUMMARY | 2025-04-05 14:31 | XMS_ITS | Clinical Summary ---
Author Organization [employer] Address [address] [facility] [address] [place] [address] Care Team Providers Care Cigarette Machine Operator Name Role Phone Unavailable Primary Care [...] Most Recently Relevant to Health Maintenance [facility]
--- OUTSIDE RECORDS SUMMARY | 2025-04-05 14:31 | XMS_ITS | Encounter Summary ---
Author Organization [employer] Address [address] [facility] [address] [place] [address] Care Team Providers Care Business Applications Manager Name Role Phone Unavailable Primary Care Provider Unavailabl e Reason for Visit * Reason Onset Date Comments Appointment 03/31/2023 Encounter Details Date Type Department Care Team ([facility] st Contact Info) Description 03/31/2023 Telephone C [facility] [address] [place] [address] NeriJose M hermosillo, DMD [address] [place] [address] Appointment Social History Tobacco Use Types Packs/Day [...]
--- OUTSIDE RECORDS SUMMARY | 2025-04-05 14:31 | XMS_ITS | Encounter Summary ---
Author Organization [employer] Address [address] [facility] [address] [place] [address] Care Team Providers Care Hoeing Row Boss Name Role Phone Unavailable Primary Care Provider [...]
--- OUTSIDE RECORDS SUMMARY | 2025-04-05 14:32 | XMS_ITS | Patient Health Record ---
Author Organization [facility] Address [address] [place] [address] Care Team Providers Care Well Shooter Name Role Phone ROSITA WILSON Primary Care Provider Masoud Burton Jr Unavailable [phone] Allergies Allergen (clinical drug ingredient) Drug/Non Drug [...] Notes Problem Irritable bowel syndrome with diarrhea (613443651) Irritable bowel syndrome with diarrhea (K58.0) Active confirmed Problem Gastroesophageal reflux disease without esophagitis (118664893) Gastroesophageal reflux disease without esophagitis (K21.9) Active confirmed Problem Colitis (97603103) Colitis (K52.9) Active confi rmed Vital Signs Temperature 97.9 degrees Fahrenheit 12/13/2024 Blood pressure diastolic 01 mm Hg 12/13/2024 Height 61 in 12/13/2024 Blood pressure systolic 001 mm Hg 12/13/2024 Weight 150.2 lbs 12/13/2024 BMI 28.38 kg/m2 12/13/2024 Encounters Encounter Location Date Provider Diagnosis [facility] [address] [place] [phone] 12/13/2024 Masoud Borja Jr Gastroesophageal reflux disease without esophagitis K21.9 and Irritable bowel syndrome with diarrhea K58.0 [facility] [address] [place] [phone] 09/04/2024 Masoud Borja Jr Assessments Encounter Date [...] Ruggiero Tayeelana chowteresa Guillen, 12/17/2025 10:00:00 AM, [address] [place] [address], [address], [place], [address], Insurance Providers Payer Name Payer Address Payer Phone Subscriber Number Group Number Insured Name Patient Relationship to Insured Coverage Start Date Coverage End Date MEDICARE OF [place] [address] [place] G[place] [address] [id number] SEJALMARGE Self - patient is the insured [facility] [address] [place] [phone] [id number] MARGE POST Self - patient is the [...]
== END 2025-04-05 12:15 | disposition home or self-care (01) ==
LOC: HO.HPODS 11:19
PROVIDERS: PCP Internal Medicine; Visit Provider Student in an Organized Health Care Education/Training Program
DX: M79.671 Pain in right foot (principal); S99.921A Unspecified injury of right foot, initial encounter; S93.401A Sprain of unspecified ligament of right ankle, initial encounter; S92.101A Unspecified fracture of right talus, initial encounter for closed fracture; M25.571 Pain in right ankle and joints of right foot; S99.911A Unspecified injury of right ankle, initial encounter
CPT/HCPCS: 29515; 99204

== ENCOUNTER → 2025-04-05 11:18 | Outpatient (BNVA) | payer MEDICARE, MEDICAID, SELFPAY | PROVIDERS: PCP Internal Medicine; Visit Provider Student in an Organized Health Care Education/Training Program | DX: S92.101D Unspecified fracture of right talus, subsequent encounter for fracture with routine healing (principal) | CPT/HCPCS: 29515; 99202 ==

== ENCOUNTER 2025-04-06 09:51 | Outpatient (AMB) | payer MEDICARE, MEDICAID, SELFPAY ==
--- OUTSIDE RECORDS SUMMARY | 2024-09-06 05:20 | XMS_ITS ---
Author Organization [facility] Address [address] [place] [address] Care Team Providers Care Oliving Machine Operator Name Role Phone ROSITA WILSON Primary Care Provider Masoud Burton Jr Unavailable REASON FOR VISIT Patient presents today for gerd Encounters Encounter Location Date Provider Diagnosis [facility] [address] [place] [address] 09/06/2024 Masoud Borja Jr Plan Of Treatment Next Appt Details Provider Name:Masoud baldwin Jr, 12/17/2025 10:00:00 AM, [address], [address], [place], [address], Progress Notes * MARGE POST EDOB: [birth year] (64 yo F)Acc No.[id number]:09/06/2024 Progress Notes Patient: MARGE VERMA Provider: Nam Borja MD :1960 A ge:63 Y S ex:Female Date:09/06/2024 Address:[address] , [id number] Pcp:ROSITA WILSON Subjective: * Chief Complaints: * [...] 09/06/2024 Generated for Simon brewer/Sushant/Sathyaitting on: 1 11:28 AM EDT
--- NOTE | 2025-04-06 09:57 | MHC.OFFVIS ---
Intake Visit Reasons: remove slpint due a boot Intake Note: Pt presents to the office today for a transition from splint to a boot. Allergies gabapentin (GABAPENTIN) Allergy (Severe, Verified 04/06/25 09:58) CHEST PAIN meloxicam Allergy (Unknown, Verified 04/06/25 09:58) Unknown From FLAGYL Allergy (Intermediate, Uncoded 04/06/25 09:58) GI UPSET Medication List - Last Reconciled 04/06/25 by Karen Pope DPM acetaminophen (Tylenol Extra Strength) 1,000 mg (2 x 500 mg) PO QID PRN albuterol sulfate 90 mcg/actuation (Ventolin HFA) inhalation atorvastatin 40 mg PO DAILY betamethasone dipropionate 0.05% 1 appl topical BID cholecalciferol (vitamin D3) (Vitamin D3) 50 mcg PO DAILY CPAP (CPAP Machine/Device) As directed CPAP CPAP tubing/supplies dicyclomine 20 mg PO QID ketorolac 10 mg PO Q8H levothyroxine 200 mcg PO DAILY omeprazole 40 mg PO QAM ondansetron 4 mg PO Q6H PRN HPI Comments Details: Patient came in today to switch from the posterior splint to a CAMboot. Patient states she feel unstable in the posterior splint and requests an alternative at this time. [facility] Medical History Right ankle pain Right ankle injury Right foot pain Right foot injury Right ankle sprain Fracture of right talus ELINOR (obstructive sleep apnea) IBS (irritable bowel syndrome) Asthma Colonic polyp Degenerative disc disease Hypothyroidism Hypercholesterolemia Surgical History History of colonoscopy (~03/08/20) History of foot surgery History of surgery on wrist History of bilateral tubal ligation History of cholecystectomy History of appendectomy History of thyroidectomy Family History Father CAD (coronary artery disease) Mother COPD (chronic obstructive pulmonary disease) Sister Breast cancer, Onset Age: 57 Maternal Grandmother Stroke Aneurysm Paternal Uncle Colon cancer Social History Housing: House Alcohol intake: never Patient Tobacco Use Status: Never used Tobacco e-Cigarette/Vaping Use: Never Used Substance Use Type: Marijuana service: No Current occupational status: disabled 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 37872 - Short leg splint Procedure code (CPT) selection complete Assessment & Plan Assessment & Plan (1) Fracture of right talus: Code(s): S92.101A - Unspecified fracture of right talus, initial encounter for closed fracture Category: Medical Qualifiers: Encounter type: initial encounter Fracture type: closed Talus location: neck (2) Right ankle sprain: Code(s): S93.401A - Sprain of unspecified ligament of right ankle, initial encounter Category: Medical Qualifiers: Encounter type: initial encounter (3) Right foot injury: Code(s): S99.921A - Unspecified injury of right foot, initial encounter Category: Medical Qualifiers: Encounter type: initial encounter Qualified Code(s): S99.921A - Unspecified injury of right foot, initial encounter (4) Right foot pain: Code(s): M79.671 - Pain in right foot Category: Medical (5) Right ankle injury: Code(s): S99.911A - Unspecified injury of right ankle, initial encounter Category: Medical Qualifiers: Encounter type: initial encounter Qualified Code(s): S99.911A - Unspecified injury of right ankle, initial encounter (6) Right ankle pain: Code(s): M25.571 - Pain in right ankle and joints of right foot Category: Medical Qualifiers: Chronicity: acute Qualified Code(s): M25.571 - Pain in right ankle and joints of right foot Plan Patient is to be NWB to the RLE with the use of an assistive device in the CAMboot. Patient may remove the CAMboot when sleeping and showering, but must keep the dressing clean, dry, and intact. Orders: Orders AMB Podiatry Dressing 04/06/25 M25.571 - Pain in right ankle and joints of right foot, M79.671 - Pain in right foot, S92.101A - Unspecified fracture of right talus, initial encounter for closed fracture, S93.401A - Sprain of unspecified ligament of right ankle, initial encounter, S99.911A - Unspecified injury of right ankle, initial encounter, S99.921A - Unspecified injury of right foot, initial encounter Medications: New ketorolac maximum total duration of 5 days from all oral, intranasal, or parenteral formulations 10 mg PO Q8H 20 tabs 0RF Right foot fracture M25.571 - Pain in right ankle and joints of right foot, M79.671 - Pain in right foot, S92.101A - Unspecified fracture of right talus, initial encounter for closed fracture, S93.401A - Sprain of unspecified ligament of right ankle, initial encounter, S99.911A - Unspecified injury of right ankle, initial encounter, S99.921A - Unspecified injury of right foot, initial encounter ketorolac maximum total duration of 5 days from all oral, intranasal, or parenteral formulations 10 mg PO Q8H 14 tabs 0RF Right foot fracture M25.571 - Pain in right ankle and joints of right foot, M79.671 - Pain in right foot, S92.101A - Unspecified fracture of right talus, initial encounter for closed fracture, S93.401A - Sprain of unspecified ligament of right ankle, initial encounter, S99.911A - Unspecified injury of right ankle, initial encounter, S99.921A - Unspecified injury of right foot, initial encounter Discontinued ketorolac maximum total duration of 5 days from all oral, intranasal, or parenteral formulations Discontinued Reason: Duplicate 10 mg PO Q8H PRN 20 tabs 0RF Right talar fracture M79.671 - Pain in right foot, S92.101A - Unspecified fracture of right talus, initial encounter for closed fracture, S93.401A - Sprain of unspecified ligament of right ankle, initial encounter, S99.921A - Unspecified injury of right foot, initial encounter Coding Level of Care Code Est Pt Level 3 (24550) Diagnoses Fracture of right talus S92.101A Encounter type: initial encounter Fracture type: closed Talus location: neck Right ankle sprain S93.401A Encounter type: initial encounter Injury of right foot, initial encounter S99.921A Encounter type: initial encounter Right foot pain M79.671 Injury of right ankle, initial encounter S99.911A Encounter type: initial encounter Acute right ankle pain M25.571 Chronicity: acute CPT Codes Podiatry Dressing - CPT: 05146 - Short leg splint ([id number]) Time Spent (min) 20
--- OUTSIDE RECORDS SUMMARY | 2025-04-06 11:28 | XMS_ITS | Patient Health Record ---
Author Organization [facility] Address [address] [place] [address] Care Team Providers Care Oyster Preparer Name Role Phone ROSITA WILSON Primary Care Provider Masoud Burton Jr Unavailable [phone] Allergies Allergen (clinical drug ingredient) Drug/Non Drug [...] Notes Problem Irritable bowel syndrome with diarrhea (238038724) Irritable bowel syndrome with diarrhea (K58.0) Active confirmed Problem Gastroesophageal reflux disease without esophagitis (565721160) Gastroesophageal reflux disease without esophagitis (K21.9) Active confirmed Problem Colitis (15565385) Colitis (K52.9) Active confi rmed Vital Signs Temperature 97.9 degrees Fahrenheit 12/13/2024 Blood pressure diastolic 01 mm Hg 12/13/2024 Height 61 in 12/13/2024 Blood pressure systolic 001 mm Hg 12/13/2024 Weight 150.2 lbs 12/13/2024 BMI 28.38 kg/m2 12/13/2024 Encounters Encounter Location Date Provider Diagnosis [facility] [address] [place] [phone] 12/13/2024 Masoud Borja Jr Gastroesophageal reflux disease without esophagitis K21.9 and Irritable bowel syndrome with diarrhea K58.0 [facility] [address] [place] [phone] 09/04/2024 Masoud Borja Jr Assessments Encounter Date [...] Ruggiero Tayeelana chowteresa Guillen, 12/17/2025 10:00:00 AM, [address] [place] [address], [address], [place], [address], Insurance Providers Payer Name Payer Address Payer Phone Subscriber Number Group Number Insured Name Patient Relationship to Insured Coverage Start Date Coverage End Date MEDICARE OF [place] [address] [place] [address] [id number] SEJALMARGE Self - patient is the insured MEDICAID [facility] [address] [place] [address] [id number] MARGE POST Self - patient is the [...]
--- OUTSIDE RECORDS SUMMARY | 2025-04-06 11:28 | XMS_ITS | Encounter Summary ---
Author Organization [employer] Address [address] [facility] [address] [place] [address] Care Team Providers Care Perinatology Physician Name Role Phone Unavailable Primary Care Provider [...]
--- OUTSIDE RECORDS SUMMARY | 2025-04-06 11:28 | XMS_ITS | Clinical Summary ---
Author Organization [employer] Address [address] [facility] 7t [place] [address] Care Team Providers Care Flavoring Oil Filterer Name Role Phone Unavailable Primary Care Provider [...] Most Recently Relevant to Health Maintenance [facility]
--- OUTSIDE RECORDS SUMMARY | 2025-04-06 11:28 | XMS_ITS | Encounter Summary ---
Author Organization [employer] Address [address] [facility] 7t [place] [address] Care Team Providers Care Optical Dispenser Name Role Phone Unavailable Primary Care Provider Unavailabl e Reason for Visit * Reason Onset Date Comments Appointment 03/31/2023 Encounter Details Date Type Department Care Team ([facility] st Contact Info) Description 03/31/2023 Telephone [facility] [address] [place] [address] NeriJose M hermosillo, DMD [address] [place] [address] Appointment Social History Tobacco Use Types Packs/Day [...]
== END 2025-04-06 10:27 | disposition home or self-care (01) ==
LOC: HO.HPODS 09:51
PROVIDERS: PCP Internal Medicine; Visit Provider Student in an Organized Health Care Education/Training Program
DX: S92.101A Unspecified fracture of right talus, initial encounter for closed fracture (principal); S93.401A Sprain of unspecified ligament of right ankle, initial encounter; S99.921A Unspecified injury of right foot, initial encounter; M79.671 Pain in right foot; S99.911A Unspecified injury of right ankle, initial encounter; M25.571 Pain in right ankle and joints of right foot
CPT/HCPCS: 29515

== ENCOUNTER → 2025-04-06 09:51 | Outpatient (BNVA) | payer MEDICARE, MEDICAID, SELFPAY | PROVIDERS: PCP Internal Medicine; Visit Provider Student in an Organized Health Care Education/Training Program | DX: S92.101D Unspecified fracture of right talus, subsequent encounter for fracture with routine healing (principal); S93.401D Sprain of unspecified ligament of right ankle, subsequent encounter; S99.921D Unspecified injury of right foot, subsequent encounter; M79.671 Pain in right foot; M25.571 Pain in right ankle and joints of right foot | CPT/HCPCS: 29515 ==

== ENCOUNTER 2025-04-07 09:08 | Outpatient (REF) | payer MEDICARE, MEDICAID, SELFPAY ==
--- OUTSIDE RECORDS SUMMARY | 2024-09-06 05:20 | XMS_ITS ---
Author Organization [facility] Address [address] [place] [address] Care Team Providers Care Rental Sales Agent Name Role Phone ROSITA WILSON Primary Care Provider Masoud Burton Jr Unavailable REASON FOR VISIT Patient presents today for gerd Encounters Encounter Location Date Provider Diagnosis [facility] [address] [place] [address] 09/06/2024 Masoud Borja Jr Plan Of Treatment Next Appt Details Provider Name:Masoud baldwin Jr, 12/17/2025 10:00:00 AM, [address], [address], [place], [address], Progress Notes * MARGE POST EDOB: [birth year] (64 yo F)Acc No.[id number]:09/06/2024 Progress Notes Patient: MARGE VERMA Provider: Nam Borja MD :1960 A ge:63 Y S ex:Female Date:09/06/2024 Address:[address] [facility] [address] [address] , [place] Pcp:ROSITA WILSON Subjective: * Chief Complaints: * [...] 09/06/2024 Generated for Simon brewer/Sushant/Sathyaitting on: 1 09:10 AM EDT
--- NOTE | ~2025-04-07 | CT_ITS ---
CLINICAL HISTORY: S92.101A - Unspecified fracture of right talus, initial encounter for cl... --- Additional Notes or Special Instructions: Weightbearing please CT right ankle and foot without contrast Comparison: CR - XR FOOT RT MIN 3V - 03/31/25 10:00 EDT Findings: The minimally displaced capsular avulsion fracture along the dorsal talar head is reidentified, measuring up to 7 x 2 mm. Tiny chip fracture at the proximal lateral cuboid. Nondisplaced fracture involving the calcaneal anterior process. Tiny os peroneum. Minimal talocrural osteoarthritis without tibiotalar joint effusion. Mild enthesopathic spurring at the base/tuberosity of the 5th metatarsal. Posterior and plantar calcaneal enthesophytes. IMPRESSION: 1. Minimally displaced capsular avulsion fracture along the dorsal aspect of the talar head. 2. Tiny chip fracture at the proximal lateral cuboid. 3. Nondisplaced fracture involving the calcaneal anterior process. This document has been electronically signed by: Lazaro Gonzalez DO on 04/07/2025 12:36:12
--- NOTE | ~2025-04-07 | XR_ITS ---
EXAMINATION: XR TIBIA FIBULA 2 VIEWS RIGHT HISTORY: S92.101A - Unspecified fracture of right talus, initial encounter for... COMPARISON: There are no prior studies available for comparison. FINDINGS: AP and lateral views of the right tibia and fibula are submitted. Osseous mineralization is normal. There is no fracture or dislocation. The visualized knee and ankle joint spaces are preserved. The soft tissues are unremarkable. XR/XR tibia fibula RT 2V IMPRESSION: Unremarkable examination of the right tibia and fibula. Electronically signed by: Kelechi Loomis MD 04/09/2025 07:41 AM EDT
--- OUTSIDE RECORDS SUMMARY | 2025-04-07 09:10 | XMS_ITS | Patient Health Record ---
Author Organization [facility] Address [address] [place] [address] Care Team Providers Care Ornamental Metal Erector Apprentice Name Role Phone ROSITA WILSON Primary Care Provider Masoud Burton Jr Unavailable [phone] Allergies Allergen (clinical drug ingredient) Drug/Non [...] Notes Problem Irritable bowel syndrome with diarrhea (500600164) Irritable bowel syndrome with diarrhea (K58.0) Active confirmed Problem Gastroesophageal reflux disease without esophagitis (119606416) Gastroesophageal reflux disease without esophagitis (K21.9) Active confirmed Problem Colitis (86511085) Colitis (K52.9) Active confi rmed Vital Signs Temperature 97.9 degrees Fahrenheit 12/13/2024 Blood pressure diastolic 01 mm Hg 12/13/2024 Height 61 in 12/13/2024 Blood pressure systolic 001 mm Hg 12/13/2024 Weight 150.2 lbs 12/13/2024 BMI 28.38 kg/m2 12/13/2024 Encounters Encounter Location Date Provider Diagnosis [facility] [address] [place] [phone] 12/13/2024 Masoud Borja Jr Gastroesophageal reflux disease without esophagitis K21.9 and Irritable bowel syndrome with diarrhea K58.0 [facility] [address] [place] [phone] 09/04/2024 Masoud Borja Jr Assessments Encounter Date [...] Ruggiero Tayeelana chowteresa Guillen, 12/17/2025 10:00:00 AM, [address] [place] [address], [address], [place], [address], Insurance Providers Payer Name Payer Address Payer Phone Subscriber Number Group Number Insured Name Patient Relationship to Insured Coverage Start Date Coverage End Date MEDICARE OF [place] [address] [place] [address] [id number] SEJALMARGE Self - patient is the insured MEDICAID OF [facility] [address] [place] [address] [id number] MARGE POST Self - patient is the [...]
--- OUTSIDE RECORDS SUMMARY | 2025-04-07 09:10 | XMS_ITS | Encounter Summary ---
Author Organization [employer] Address [address] [facility] 7t [place] [address] Care Team Providers Care Manager Corporate Name Role Phone Unavailable Primary Care Provider Unavailabl e Reason for Visit * Reason Onset Date Comments Appointment 03/31/2023 Encounter Details Date Type Department Care Team ([facility] st Contact Info) Description 03/31/2023 Telephone C [facility] [address] [place] [address] eNriJose M hermosillo, DMD [address] [place] [address] Appointment Social History Tobacco Use Types Packs/Day [...]
--- OUTSIDE RECORDS SUMMARY | 2025-04-07 09:10 | XMS_ITS | Encounter Summary ---
Author Organization [employer] Address [address] [facility] 7t [place] [address] Care Team Providers Care Musculoskeletal Physiotherapist Name Role Phone Unavailable Primary Care Provider [...]
--- OUTSIDE RECORDS SUMMARY | 2025-04-07 09:10 | XMS_ITS | Clinical Summary ---
Author Organization [employer] Address [address] [facility] 7t [place] [address] Care Team Providers Care Steersman Name Role Phone Unavailable Primary Care Provider [...]
== END 2025-04-07 09:09 | disposition home or self-care (01) ==
LOC: HO.CT 09:08
PROVIDERS: PCP Internal Medicine; Visit Provider Student in an Organized Health Care Education/Training Program
DX: S92.101A Unspecified fracture of right talus, initial encounter for closed fracture (principal); S93.401A Sprain of unspecified ligament of right ankle, initial encounter; M79.671 Pain in right foot; S99.921A Unspecified injury of right foot, initial encounter; S99.911A Unspecified injury of right ankle, initial encounter; M25.571 Pain in right ankle and joints of right foot
CPT/HCPCS: 73590; 73700

== ENCOUNTER → 2025-04-07 09:12 | Outpatient (BNV) | payer MEDICARE, MEDICAID, SELFPAY | PROVIDERS: PCP Internal Medicine; Visit Provider Radiology Diagnostic Radiology | DX: S92.101A Unspecified fracture of right talus, initial encounter for closed fracture (principal) | CPT/HCPCS: 73590 ==

== ENCOUNTER 2025-04-11 13:44 | Outpatient (AMB) | payer MEDICARE, MEDICAID, SELFPAY ==
--- OUTSIDE RECORDS SUMMARY | 2024-09-06 05:20 | XMS_ITS ---
Author Organization [facility] Address [address] [place] [address] Care Team Providers Care Air Moving Technician Name Role Phone ROSITA WILSON Primary Care Provider Masoud Burton Jr Unavailable [phone] REASON FOR VISIT Patient presents today for gerd Encounters Encounter Location Date Provider Diagnosis [facility] [address] [place] [address] 09/06/2024 Masoud Borja Jr Plan Of Treatment Next Appt Details Provider Name:Masoud baldwin Jr, 12/17/2025 10:00:00 AM, [address], [address], [place], [address], Progress Notes * MARGE POST EDOB: [birth year] (64 yo F)Acc No.[id number]:09/06/2024 Progress Notes Patient: MARGE VERMA Provider: Nam Borja MD :1960 A ge:63 Y S ex:Female Date:09/06/2024 Address:[address] [facility] [address] [address] , [place] Pcp:ROSITA WILSON Subjective: * Chief Complaints: * [...] 09/06/2024 Generated for Simon brewer/Sushant/Sathyaitting on: 1 07:30 PM EDT
--- OUTSIDE RECORDS SUMMARY | 2025-04-11 19:30 | XMS_ITS | Clinical Summary ---
Author Organization [employer] Address [address] [facility] 7t [place] [address] Care Team Providers Care Superintendent Institution Name Role Phone Unavailable Primary Care Provider [...] Most Recently Relevant to Health Maintenance Insurance [facility] STAND ADULT
--- OUTSIDE RECORDS SUMMARY | 2025-04-11 19:30 | XMS_ITS | Encounter Summary ---
Author Organization [employer] Address [address] [facility] 7t [place] [address] Care Team Providers Care Roaster Operator Name Role Phone Unavailable Primary Care [...] EDT Gender Identity Choose not to disclose 2 10:18 AM EDT Sexual Orientation Choose not to disclose 2021 10:18 AM EDT documented as of this encounter Plan of Treatment Not on file documented as of this encounter Visit Diagnoses Not on filedocumented in this encounter
--- OUTSIDE RECORDS SUMMARY | 2025-04-11 19:30 | XMS_ITS | Encounter Summary ---
Author Organization [employer] Address [address] [facility] 7t [place] [address] Care Team Providers Care Territory Sales Representative Name Role Phone Unavailable Primary Care Provider Unavailabl e Reason for Visit * Reason Onset Date Comments Appointment 03/31/2023 Encounter Details Date Type Department Care Team ([facility] st Contact Info) Description 03/31/2023 Telephone C [facility] [address] [place] [address] NeriJose M hermosillo, DMD [address] [place] [address] Appointment Social History Tobacco Use Types Packs/Day [...]
--- OUTSIDE RECORDS SUMMARY | 2025-04-11 19:30 | XMS_ITS | Patient Health Record ---
Author Organization [facility] Address [address] [place] [address] Care Team Providers Care Core Checker Name Role Phone ROSITA WILSON Primary Care [...] Notes Problem Irritable bowel syndrome with diarrhea (522726454) Irritable bowel syndrome with diarrhea (K58.0) Active confirmed Problem Gastroesophageal reflux disease without esophagitis (695482857) Gastroesophageal reflux disease without esophagitis (K21.9) Active confirmed Problem Colitis (49694223) Colitis (K52.9) Active confi rmed Vital Signs Temperature 97.9 degrees Fahrenheit 12/13/2024 Blood pressure diastolic 01 mm Hg 12/13/2024 Height 61 in 12/13/2024 Blood pressure systolic 001 mm Hg 12/13/2024 Weight 150.2 lbs 12/13/2024 BMI 28.38 kg/m2 12/13/2024 Encounters Encounter Location Date Provider Diagnosis [facility] [address] [place] [phone] 12/13/2024 Masoud Borja Jr Gastroesophageal reflux disease without esophagitis K21.9 and Irritable bowel syndrome with diarrhea K58.0 [facility] [address] [place] [phone] 09/04/2024 Masoud Borja Jr Assessments Encounter Date [...] Ruggiero Tayeelana chowteresa Guillen, 12/17/2025 10:00:00 AM, [address] [place] [address], [address], [place], [address], Insurance Providers Payer Name Payer Address Payer Phone Subscriber Number Group Number Insured Name Patient Relationship to Insured Coverage Start Date Coverage End Date MEDICARE OF [place] [address] [place] [address] [id number] SEJALMARGE Self - patient is the insured [facility]ICAID OF [facility] [address] [place] [address] [id number] MARGE POST Self - patient is the [...]
== END 2025-04-11 13:45 | disposition home or self-care (01) ==
LOC: HO.HMGAL 13:44
PROVIDERS: PCP Internal Medicine; Visit Provider Registered Nurse Emergency
DX: J30.89 Other allergic rhinitis (principal)
CPT/HCPCS: 95117; 95165

== ENCOUNTER 2025-04-19 10:48 | Outpatient (AMB) | payer MEDICARE, MEDICAID, SELFPAY ==
--- OUTSIDE RECORDS SUMMARY | 2024-09-06 05:20 | XMS_ITS ---
Author Organization [facility] Address [address] [place] [address] Care Team Providers Care Coil Winder Hand Name Role Phone ROSITA WILSON Primary Care Provider aMsoud Burton Jr Unavailable REASON FOR VISIT Patient presents today for gerd Encounters Encounter Location Date Provider Diagnosis [facility] [address] [place] [address] 09/06/2024 Masoud Borja Jr Plan Of Treatment Next Appt Details Provider Name:Masoud baldwin Jr, 12/17/2025 10:00:00 AM, [address], [address], [place], [address], Progress Notes * MARGE POST EDOB: [birth year] (64 yo F)Acc No.[id number]:09/06/2024 Progress Notes Patient: MARGE VERMA Provider: Nam Borja MD :1960 A ge:63 Y S ex:Female Date:09/06/2024 Address:[address] [address] , [id number] Pcp:ROSITA WILSON Subjective: * Chief Complaints: * [...] 09/06/2024 Generated for Simon brewer/Sushant/Sathyaitting on: 1 01:27 PM EDT
--- NOTE | 2025-04-19 11:08 | MHC.OFFVIS ---
Vital Signs 04/19/25 11:18 Height 5 ft 1 in Weight 149 lb BMI 28.2 Intake Visit Reasons: Avulsion fracture talar beak. Intake Note: Bela is a 64 year old female who present to the office today for a follow up Avulsion fracture talar beak. At last visit patient was placed in a tall boot and was instructed to remain non weight bearing. MRI completed on 04/07. Pt states she gets occasional sharp burning pain and she is currently using a scooter to assist with non weight bearing. Allergies gabapentin (GABAPENTIN) Allergy (Severe, Verified 04/19/25 11:19) CHEST PAIN meloxicam Allergy (Unknown, Verified 04/19/25 11:19) Unknown From FLAGYL Allergy (Intermediate, Uncoded 04/06/25 09:58) GI UPSET HPI Comments Details: The patient is a 64-year-old female presenting for a follow up of a right talar avulsion fracture. The fracture was identified as an avulsion fracture and occurred on the 10th of the previous month. The patient reports intermittent sharp and burning pain in the foot, which is not constant but occurs occasionally, resembling a stabbing sensation. Initially, the patient experienced significant swelling and bruising, which has since subsided. The patient has been using the CAMboot and dressing and has been keeping it clean, dry, and intact. She states she has been NWB to the E and was seen using a knee scooter today. Patient states the Toradol provided pain relief and now takes Tylenol prn. She denies any new pedal injuries. Denies any other pedal concerns. Patient was accompanied by her brother. [facility] Medical History (Updated 04/22/25 @ 14:02 by Karen Pope DPM) Nondisplaced fracture of anterior process of right calcaneus, subsequent encounter for fracture with routine healing Nondisplaced fracture of cuboid bone of right foot, subsequent encounter for fracture with routine healing Right ankle pain Right ankle injury Right foot pain Right foot injury Right ankle sprain Fracture of right talus ELINOR (obstructive sleep apnea) IBS (irritable bowel syndrome) Asthma Colonic polyp Degenerative disc disease Hypothyroidism Hypercholesterolemia Surgical History History of colonoscopy (~03/08/20) History of foot surgery History of surgery on wrist History of bilateral tubal ligation History of cholecystectomy History of appendectomy History of thyroidectomy Family History Father CAD (coronary artery disease) Mother COPD (chronic obstructive pulmonary disease) Sister Breast cancer, Onset Age: 57 Maternal Grandmother Stroke Aneurysm Paternal Uncle Colon cancer Social History Housing: House Alcohol intake: never Patient Tobacco Use Status: Never used Tobacco e-Cigarette/Vaping Use: Never Used Substance Use Type: Marijuana service: No Current occupational status: disabled 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 All systems reviewed & are unremarkable except as noted in HPI and below Physical Exam Vital Signs: BMI result Body Mass Index 28.2 Extrem Other: Right lower extremity focused physical exam: Derm: Significant reduction in ecchymosis noted to the foot and lateral aspect of the ankle. No open lesions abrasions or wounds noted. Skin supple and turgor within normal limits. No clinical signs of infection. Vascular: DP/PT pulses palpable. Capillary refill time less than 3 seconds. Temperature gradient warm to warm. Pedal hair absent. No varicosities noted. Significant reduction in edema noted to the foot and ankle. Neuro: Protective sensation is grossly intact. MSK: Mild pain on palpation to the foot in the area of the TNJ, dorsal midfoot, and lateral aspect of the midfoot. No pain on palpation to the ankle . No fluctuance or crepitus noted. No pain on palpation to the proximal aspect of the fibula. Range of motion of the forefoot hindfoot and ankle increased. Patient is nonweightbearing with the use of a knee scooter and CAMboot. Office Procedures AMB Podiatry Dressing Details of Procedure: Applied a stockinet, cast padding, and CHAMP bandage to the RLE with the use of a CAMboot. [address]96 - Short leg splint Procedure code (CPT) selection complete Results Reviewed Results Reviewed: Podiatry Read of Right Foot CT (04/07/25): Avulsion fracture noted to the talar head, cuboid, and calcaneal anterior process. Os peroneum noted. Right Foot CT (04/07/25): Findings: The minimally displaced capsular avulsion fracture along the dorsal talar head is reidentified, measuring up to 7 x 2 mm. Tiny chip fracture at the proximal lateral cuboid. Nondisplaced fracture involving the calcaneal anterior process. Tiny os peroneum. Minimal talocrural osteoarthritis without tibiotalar joint effusion. Mild enthesopathic spurring at the base/tuberosity of the 5th metatarsal. Posterior and plantar calcaneal enthesophytes. IMPRESSION: 1. Minimally displaced capsular avulsion fracture along the dorsal aspect of the talar head. 2. Tiny chip fracture at the proximal lateral cuboid. 3. Nondisplaced fracture involving the calcaneal anterior process. Podiatry Read of Right Tib/Fib xray (04/07/25): No acute fractures or dislocations noted. Right Tib/Fib xray (04/07/25): FINDINGS: AP and lateral views of the right tibia and fibula are submitted. Osseous mineralization is normal. There is no fracture or dislocation. The visualized knee and ankle joint spaces are preserved. The soft tissues are unremarkable. IMPRESSION: Unremarkable examination of the right tibia and fibula. Podiatry read of Right foot xray (03/31/25): Fracture noted to the head/neck of the talus with a mildly displace avulsion fragment noted. Bone spur noted to the plantar and posterior aspect of the calcaneus. Met adductus noted. No acute dislocations noted. Podiatry read of Right ankle xray (03/31/25): Fracture noted to the head/neck of the talus with a mildly displace avulsion fragment noted. Bone spur noted to the plantar and posterior aspect of the calcaneus. No acute dislocations noted. Right foot xray (03/31/25): Findings: Avulsion fracture talar beak. No periostitis or bony destruction. Joint intervals are preserved. No marginal erosions or overhanging osteophytes. Calcaneus and subtalar joint intact. No significant arthritic change. Posterior and plantar calcaneal enthesophyte. Normal bone mineralization and soft tissues. Normal pre-Achilles fat pad. No radiopaque foreign body. Impression: 1. Avulsion fracture talar beak. Right ankle xray (03/31/25): Findings: Avulsion fracture versus spur talar beak correlate with palpation. Ankle mortise intact. Normal plafond. No osteochondral lesions. Calcaneus and subtalar joint intact. No significant arthritic change. Posterior and plantar calcaneal enthesophyte Soft tissue swelling laterally. Normal pre-Achilles fat pad. No radiopaque foreign body. Impression: 1. Suspect avulsion fracture rather than spur talar beak correlate with palpation. Soft tissue swelling lateral malleolus. Ankle mortise intact. Assessment & Plan Assessment & Plan (1) Right foot injury: Code(s): S99.921A - Unspecified injury of right foot, initial encounter Category: Medical Qualifiers: Encounter type: initial encounter Qualified Code(s): S99.921A - Unspecified injury of right foot, initial encounter (2) Right foot pain: Code(s): M79.671 - Pain in right foot Category: Medical (3) Fracture of right talus: Code(s): S92.101A - Unspecified fracture of right talus, initial encounter for closed fracture Category: Medical Qualifiers: Encounter type: initial encounter Fracture type: closed Talus location: neck (4) Right ankle sprain: Code(s): S93.401A - Sprain of unspecified ligament of right ankle, initial encounter Category: Medical Qualifiers: Encounter type: initial encounter (5) Right ankle pain: Code(s): M25.571 - Pain in right ankle and joints of right foot Category: Medical Qualifiers: Chronicity: acute Qualified Code(s): M25.571 - Pain in right ankle and joints of right foot (6) Right ankle injury: Code(s): S99.911A - Unspecified injury of right ankle, initial encounter Category: Medical Qualifiers: Encounter type: initial encounter Qualified Code(s): S99.911A - Unspecified injury of right ankle, initial encounter (7) Nondisplaced fracture of cuboid bone of right foot, subsequent encounter for fracture with routine healing: Code(s): S92.214D - Nondisplaced fracture of cuboid bone of right foot, subsequent encounter for fracture with routine healing Category: Medical (8) Nondisplaced fracture of anterior process of right calcaneus, subsequent encounter for fracture with routine healing: Code(s): S92.024D - Nondisplaced fracture of anterior process of right calcaneus, subsequent encounter for fracture with routine healing Category: Medical Plan Patient was informed and verbally consented to the use of an ambient scribe for clinic note documentation during this visit. I discussed with the patient the nature of her avulsion fracture and the expected healing timeline of six to eight weeks. We reviewed the importance of remaining non-weightbearing for two more weeks and the subsequent transition to walking in a CAMboot with support. I emphasized the need for an x-ray before her next appointment to assess healing progress. We also discussed the plan for physical therapy to regain strength after transitioning from the boot. The patient was advised to continue using Ketorolac and Tylenol for pain management and to use a protective covering for the foot during showers. - Continue non-weightbearing status for two more weeks, will transition to gradual weightbearing in CAMboot with an assistive device if positive healing noted at next visit. - Continue Toradol and Tylenol prn for pain. - Ordered right foot x-ray to be performed prior to next visit. - Plan for physical therapy after transitioning to WBAT in a CAMboot. - Patient is to keep the dressing clean, dry, and intact. RTC in 2 weeks. Orders: Orders XR foot RT min 3V 04/19/25 M79.671 - Pain in right foot, S92.101A - Unspecified fracture of right talus, initial encounter for closed fracture, S99.921A - Unspecified injury of right foot, initial encounter AMB Podiatry Dressing 04/19/25 M25.571 - Pain in right ankle and joints of right foot, M79.671 - Pain in right foot, S92.101A - Unspecified fracture of right talus, initial encounter for closed fracture, S93.401A - Sprain of unspecified ligament of right ankle, initial encounter, S99.911A - Unspecified injury of right ankle, initial encounter, S99.921A - Unspecified injury of right foot, initial encounter Coding Level of Care Code Est Pt Level 4 (70655) Diagnoses Injury of right foot, initial encounter S99.921A Encounter type: initial encounter Right foot pain M79.671 Fracture of right talus S92.101A Encounter type: initial encounter Fracture type: closed Talus location: neck Right ankle sprain S93.401A Encounter type: initial encounter Acute right ankle pain M25.571 Chronicity: acute Injury of right ankle, initial encounter S99.911A Encounter type: initial encounter Nondisplaced fracture of cuboid bone of right foot, subsequent encounter for fracture with routine healing S92.214D Nondisplaced fracture of anterior process of right calcaneus, subsequent encounter for fracture with routine healing S92.024D CPT Codes Podiatry Dressing - CPT: 70798 - Short leg splint ([id number]) Time Spent (min) 43
[2025-04-19 11:18] VITALS: BMI 28.2
--- OUTSIDE RECORDS SUMMARY | 2025-04-19 13:27 | XMS_ITS | Patient Health Record ---
Author Organization [facility] Address [address] [place] [address] Care Team Providers Care Social Worker Clinical Name Role Phone ROSITA WILSON Primary Care Provider Masoud Burton Jr Unavailable [phone] Allergies Allergen (clinical drug ingredient) Drug/Non Drug [...] Notes Problem Irritable bowel syndrome with diarrhea (824193347) Irritable bowel syndrome with diarrhea (K58.0) Active confirmed Problem Gastroesophageal reflux disease without esophagitis (214988373) Gastroesophageal reflux disease without esophagitis (K21.9) Active confirmed Problem Colitis (19753689) Colitis (K52.9) Active confi rmed Vital Signs Temperature 97.9 degrees Fahrenheit 12/13/2024 Blood pressure diastolic 01 mm Hg 12/13/2024 Height 61 in 12/13/2024 Blood pressure systolic 001 mm Hg 12/13/2024 Weight 150.2 lbs 12/13/2024 BMI 28.38 kg/m2 12/13/2024 Encounters Encounter Location Date Provider Diagnosis [facility] [address] [place] [phone] 12/13/2024 Masoud Borja Jr Gastroesophageal reflux disease without esophagitis K21.9 and Irritable bowel syndrome with diarrhea K58.0 [facility] [address] [place] [phone] 09/04/2024 Masoud Borja Jr Assessments Encounter Date [...] Ruggiero Tayeelana chowteresa Guillen, 12/17/2025 10:00:00 AM, [address] [place] [address], [address], [place], [address], Insurance Providers Payer Name Payer Address Payer Phone Subscriber Number Group Number Insured Name Patient Relationship to Insured Coverage Start Date Coverage End Date MEDICARE OF [place] [address] [place] [address] [id number] SEJALMARGE Self - patient is the insured [facility] [address] [place] [address] [id number] MARGE POST Self - patient is the [...]
--- OUTSIDE RECORDS SUMMARY | 2025-04-19 13:27 | XMS_ITS | Encounter Summary ---
Author Organization [employer] Address [address] [facility] 7t [place] [address] Care Team Providers Care Rod Hanger Name Role Phone Unavailable Primary Care Provider Unavailabl e Reason for Visit * Reason Onset Date Comments Appointment 03/31/2023 Encounter Details Date Type Department Care Team ([facility] st Contact Info) Description 03/31/2023 Telephone C [facility] [address] [place] [address] NeriJose M hermosillo, DMD [address] [place] [address] Appointment Social History Tobacco Use Types Packs/Day [...]
--- OUTSIDE RECORDS SUMMARY | 2025-04-19 13:27 | XMS_ITS | Clinical Summary ---
Author Organization [employer] Address [address] [facility] 7t [place] [address] Care Team Providers Care Chin Strap Sewer Name Role Phone Unavailable Primary Care Provider [...] Most Recently Relevant to Health Maintenance [facility]
--- OUTSIDE RECORDS SUMMARY | 2025-04-19 13:27 | XMS_ITS | Encounter Summary ---
Author Organization [employer] Address [address] [facility] 7t [place] [address] Care Team Providers Care Parts Casting Machine Operator Name Role Phone Unavailable Primary [...]
== END 2025-04-19 11:22 | disposition home or self-care (01) ==
LOC: HO.HPODS 10:48
PROVIDERS: PCP Internal Medicine; Visit Provider Student in an Organized Health Care Education/Training Program
DX: S92.101A Unspecified fracture of right talus, initial encounter for closed fracture (principal); S93.401A Sprain of unspecified ligament of right ankle, initial encounter; S99.911A Unspecified injury of right ankle, initial encounter; S92.214D Nondisplaced fracture of cuboid bone of right foot, subsequent encounter for fracture with routine healing; S92.024D Nondisplaced fracture of anterior process of right calcaneus, subsequent encounter for fracture with routine healing
CPT/HCPCS: 29515; 99214

== ENCOUNTER → 2025-04-19 10:48 | Outpatient (BNVA) | payer MEDICARE, MEDICAID, SELFPAY | PROVIDERS: PCP Internal Medicine; Visit Provider Student in an Organized Health Care Education/Training Program | DX: S92.111D Displaced fracture of neck of right talus, subsequent encounter for fracture with routine healing (principal); S92.214D Nondisplaced fracture of cuboid bone of right foot, subsequent encounter for fracture with routine healing; S92.024D Nondisplaced fracture of anterior process of right calcaneus, subsequent encounter for fracture with routine healing; S93.401D Sprain of unspecified ligament of right ankle, subsequent encounter; X58.XXXD Exposure to other specified factors, subsequent encounter; M79.671 Pain in right foot; M25.571 Pain in right ankle and joints of right foot | CPT/HCPCS: 29515; 99212 ==

== ENCOUNTER 2025-04-30 09:45 | Outpatient (REF) | payer MEDICARE, MEDICAID, SELFPAY ==
--- NOTE | ~2025-04-30 | MM_ITS ---
EXAMINATION: MM SCREENING DIGITAL BREAST TOMOSYNTHESIS, BILATERAL CLINICAL INFORMATION: Screening. Asymptomatic. COMPARISON: Mammography: Comparison is made with available priors TECHNIQUE: Digital breast mammography with tomosynthesis is performed in both the craniocaudal and mediolateral oblique views along with computer-aided detection (CAD). FINDINGS: There are scattered areas of fibroglandular density. There are no significant masses, abnormal calcifications, or other abnormalities. MM/MM tomosynthesis screening BI IMPRESSION: No mammographic evidence of malignancy. ASSESSMENT: BI-RADS Category 1: Negative RECOMMENDATION: Routine annual mammography screening. 1 year F/U This examination should not preclude the clinical evaluation of a suspicious palpable abnormality. This patient's information was entered into a reminder system with a target due date for their next mammogram. Electronically signed by: Kellie Cornejo DO 05/04/2025 09:31 AM JOSUE
--- NOTE | ~2025-04-30 | XR_ITS ---
EXAMINATION: XR FOOT, RIGHT CLINICAL INFORMATION: S99.921A - Unspecified injury of right foot, initial encounter COMPARISON: None available. TECHNIQUE: AP, lateral, and oblique views of the right foot. FINDINGS: Hallux valgus deformity is present. No fracture is apparent. There is no joint diastases or step-off. Small calcaneal spurs are present. XR/XR foot RT min 3V IMPRESSION: Hallux valgus deformity. Small calcaneal spur. Electronically signed by: Alexi Tran MD 04/30/2025 12:18 PM EST
--- OUTSIDE RECORDS SUMMARY | 2025-04-30 11:11 | XMS_ITS | Encounter Summary ---
Author Organization [employer] Address [address] [facility] 7t [place] [address] Care Team Providers Care Fish And Wildlife Warden Name Role Phone Unavailable Primary Care Provider Unavailabl e Reason for Visit * Reason Onset Date Comments Appointment 03/31/2023 Encounter Details Date Type Department Care Team ([facility] st Contact Info) Description 03/31/2023 Telephone [facility] [address] [place] [address] NeriJose M hermosillo, DMD [address] [place] [address] Appointment Social History Tobacco Use Types Packs/Day [...]
--- OUTSIDE RECORDS SUMMARY | 2025-04-30 11:11 | XMS_ITS | Clinical Summary ---
Author Organization [employer] Address [address] [facility] 7t [place] [address] Care Team Providers Care Finisher Brush Name Role Phone Unavailable Primary Care Provider [...] Most Recently Relevant to Health Maintenance Insurance [facility] STAND ADULT
--- OUTSIDE RECORDS SUMMARY | 2025-04-30 11:11 | XMS_ITS | Encounter Summary ---
Author Organization [employer] Address [address] [facility] 7t [place] [address] Care Team Providers Care Assembler Crimper Name Role Phone Unavailable Primary Care Provider [...]
== END 2025-04-30 09:46 | disposition home or self-care (01) ==
LOC: HO.MAMMO 09:45
PROVIDERS: Absent Provider Student in an Organized Health Care Education/Training Program; PCP Internal Medicine; Visit Provider Internal Medicine
DX: S92.101A Unspecified fracture of right talus, initial encounter for closed fracture (principal); Z12.31 Encounter for screening mammogram for malignant neoplasm of breast; X58.XXXA Exposure to other specified factors, initial encounter
CPT/HCPCS: 73630; 77063; 77067

== ENCOUNTER → 2025-04-30 10:17 | Outpatient (BNV) | payer MEDICARE, MEDICAID, SELFPAY | PROVIDERS: Absent Provider Student in an Organized Health Care Education/Training Program; PCP Internal Medicine; Visit Provider Radiology Diagnostic Radiology | DX: Z12.31 Encounter for screening mammogram for malignant neoplasm of breast (principal) | CPT/HCPCS: 77063; 77067 ==

== ENCOUNTER 2025-05-02 11:19 | Outpatient (AMB) | payer MEDICARE, MEDICAID, SELFPAY | END 2025-05-02 11:19 | disposition home or self-care (01) | LOC: HO.HMGAL 11:19 | PROVIDERS: PCP Internal Medicine; Visit Provider Registered Nurse Emergency | DX: J30.89 Other allergic rhinitis (principal) | CPT/HCPCS: 95117; 95165 ==

== ENCOUNTER 2025-05-03 11:20 | Outpatient (AMB) | payer MEDICARE, MEDICAID, SELFPAY ==
--- OUTSIDE RECORDS SUMMARY | 2024-09-06 04:20 | XMS_ITS ---
Author Organization [facility] Address [address] [place] [address] Care Team Providers Care Report Analyst Name Role Phone ROSITA WILSON Primary Care Provider Masoud Burton Jr Unavailable [phone] REASON FOR VISIT Patient presents today for gerd Encounters Encounter Location Date Provider Diagnosis [facility] [address] [place] [address] 09/06/2024 Masoud Borja Jr Plan Of Treatment Next Appt Details Provider Name:Masoud baldwin Jr, 12/17/2025 10:00:00 AM, [address], [address], [place], [address], Progress Notes * MARGE POST EDOB: [birth year] (64 yo F)Acc No.[id number]:09/06/2024 Progress Notes Patient: MARGE VERMA Provider: Nam Borja MD :1960 A ge:63 Y S ex:Female Date:09/06/2024 Address:[address] [address] , [id number] Pcp:ROSITA WILSON Subjective: * Chief Complaints: * 1 . Patient presents today for gerd. * Medical History: Objective: * Vitals: Assessment: Plan: * Treatment: * * The named appointment provid er may or may not be the originator of this progress note, and it is not deemed complete until electronically signed by the appointment provider. Sign off status: Pending * Provider: Nam Borja MD Date: 0 09/06/2024 Generated for Simon brewer/Sushant/Sathyaitting on: 1 07/03/2024 02:26 PM EST
--- NOTE | 2025-05-03 11:25 | A.OFFVIS_ITS ---
Vital Signs 05/03/25 11:26 Height 5 ft 1 in Weight 158 lb BMI 29.9 Intake Visit Reasons: Avulsion fracture talar beak. Intake Note: Bela is a 64 year old female who presents today for a follow up of an Avulsion fracture talar beak. Patient reports she is doing well with no further concerns at this time. Allergies gabapentin (GABAPENTIN) Allergy (Severe, Verified 05/02/25 09:53) CHEST PAIN meloxicam Allergy (Unknown, Verified 05/02/25 09:53) Unknown From FLAGYL Allergy (Intermediate, Uncoded 04/06/25 09:58) GI UPSET HPI Comments Details: The patient is a 64-year-old female presenting for a follow up of a right talar avulsion fracture. The patient has been adhering to non-weight bearing instructions and using a knee scooter for mobility. She reports experiencing mild pain with mobility of the right foot. She denies any new pedal concerns. She denies any new pedal injuries. [facility] Medical History Nondisplaced fracture of anterior process of right calcaneus, subsequent encounter for fracture with routine healing Nondisplaced fracture of cuboid bone of right foot, subsequent encounter for fracture with routine healing Right ankle pain Right ankle injury Right foot pain Right foot injury Right ankle sprain Fracture of right talus ELINOR (obstructive sleep apnea) IBS (irritable bowel syndrome) Asthma Colonic polyp Degenerative disc disease Hypothyroidism Hypercholesterolemia Surgical History History of colonoscopy (~03/08/20) History of foot surgery History of surgery on wrist History of bilateral tubal ligation History of cholecystectomy History of appendectomy History of thyroidectomy Family History (Updated 05/02/25 @ 10:37 by Caro Sanchez MA) Father CAD (coronary artery disease) Mother COPD (chronic obstructive pulmonary disease) Sister Breast cancer, Onset Age: 57 Maternal Grandmother Stroke Aneurysm Paternal Uncle Colon cancer Social History Housing: House Alcohol intake: never Patient Tobacco Use Status: Never used Tobacco e-Cigarette/Vaping Use: Never Used Substance Use Type: Marijuana service: No Current occupational status: disabled 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 All systems reviewed & are unremarkable except as noted in HPI and below Physical Exam Vital Signs: BMI result Body Mass Index 29.9 Extrem Other: Right lower extremity focused physical exam: Derm: Resolution of ecchymosis noted to the foot and lateral aspect of the ankle. No open lesions abrasions or wounds noted. Skin supple and turgor within normal limits. No clinical signs of infection. Vascular: DP/PT pulses palpable. Capillary refill time less than 3 seconds. Temperature gradient warm to warm. Pedal hair absent. No varicosities noted. Significant reduction in edema noted to the foot and ankle. Neuro: Protective sensation is grossly intact. MSK: Mild pain on palpation to the foot in the area of the TNJ, dorsal midfoot, and lateral aspect of the midfoot. No pain on palpation to the ankle . No fluctuance or crepitus noted. No pain on palpation to the proximal aspect of the fibula. Range of motion of the forefoot hindfoot and ankle increased in comparison to last visit. Patient is nonweightbearing with the use of a knee scooter and CAMboot. Office Procedures AMB Podiatry Dressing Details of Procedure: Applied a stockinet, cast padding, and mary carmen bandage to the RLE with the use of a CAMboot. 59770 - Short leg splint Procedure code (CPT) selection complete Results Reviewed Results Reviewed: Ordered right foot 3 views weightbearing xrays to be performed prior to next visit. Podiatry read of Right ankle xray (04/30/25): Healing noted to the avulsion fracture of the head/neck of the talus with increased bone consolidation and bone callus formation. Bone spur noted to the plantar and posterior aspect of the calcaneus. No new acute fractures or dislocations noted. Right foot xray (04/30/25): FINDINGS: Hallux valgus deformity is present. No fracture is apparent. There is no joint diastases or step-off. Small calcaneal spurs are present. IMPRESSION: Hallux valgus deformity. Small calcaneal spur. Podiatry Read of Right Foot CT (04/07/25): Avulsion fracture noted to the talar head, cuboid, and calcaneal anterior process. Os peroneum noted. Right Foot CT (04/07/25): Findings: The minimally displaced capsular avulsion fracture along the dorsal talar head is reidentified, measuring up to 7 x 2 mm. Tiny chip fracture at the proximal lateral cuboid. Nondisplaced fracture involving the calcaneal anterior process. Tiny os peroneum. Minimal talocrural osteoarthritis without tibiotalar joint effusion. Mild enthesopathic spurring at the base/tuberosity of the 5th metatarsal. Posterior and plantar calcaneal enthesophytes. IMPRESSION: 1. Minimally displaced capsular avulsion fracture along the dorsal aspect of the talar head. 2. Tiny chip fracture at the proximal lateral cuboid. 3. Nondisplaced fracture involving the calcaneal anterior process. Podiatry Read of Right Tib/Fib xray (04/07/25): No acute fractures or dislocations noted. Right Tib/Fib xray (04/07/25): FINDINGS: AP and lateral views of the right tibia and fibula are submitted. Osseous mineralization is normal. There is no fracture or dislocation. The visualized knee and ankle joint spaces are preserved. The soft tissues are unremarkable. IMPRESSION: Unremarkable examination of the right tibia and fibula. Podiatry read of Right foot xray (03/31/25): Fracture noted to the head/neck of the talus with a mildly displace avulsion fragment noted. Bone spur noted to the plantar and posterior aspect of the calcaneus. Met adductus noted. No acute dislocations noted. Podiatry read of Right ankle xray (03/31/25): Fracture noted to the head/neck of the talus with a mildly displace avulsion fragment noted. Bone spur noted to the plantar and posterior aspect of the calcaneus. No acute dislocations noted. Right foot xray (03/31/25): Findings: Avulsion fracture talar beak. No periostitis or bony destruction. Joint intervals are preserved. No marginal erosions or overhanging osteophytes. Calcaneus and subtalar joint intact. No significant arthritic change. Posterior and plantar calcaneal enthesophyte. Normal bone mineralization and soft tissues. Normal pre-Achilles fat pad. No radiopaque foreign body. Impression: 1. Avulsion fracture talar beak. Right ankle xray (03/31/25): Findings: Avulsion fracture versus spur talar beak correlate with palpation. Ankle mortise intact. Normal plafond. No osteochondral lesions. Calcaneus and subtalar joint intact. No significant arthritic change. Posterior and plantar calcaneal enthesophyte Soft tissue swelling laterally. Normal pre-Achilles fat pad. No radiopaque foreign body. Impression: 1. Suspect avulsion fracture rather than spur talar beak correlate with palpation. Soft tissue swelling lateral malleolus. Ankle mortise intact. Assessment & Plan Assessment & Plan (1) Fracture of right talus: Code(s): S92.101A - Unspecified fracture of right talus, initial encounter for closed fracture Category: Medical Qualifiers: Encounter type: initial encounter Fracture type: closed Talus location: neck (2) Right ankle sprain: Code(s): S93.401A - Sprain of unspecified ligament of right ankle, initial encounter Category: Medical Qualifiers: Encounter type: subsequent encounter (3) Right foot injury: Code(s): S99.921A - Unspecified injury of right foot, initial encounter Category: Medical Qualifiers: Encounter type: initial encounter Qualified Code(s): S99.921A - Unspecified injury of right foot, initial encounter (4) Right foot pain: Code(s): M79.671 - Pain in right foot Category: Medical (5) Right ankle injury: Code(s): S99.911A - Unspecified injury of right ankle, initial encounter Category: Medical Qualifiers: Encounter type: initial encounter Qualified Code(s): S99.911A - Unspecified injury of right ankle, initial encounter (6) Right ankle pain: Code(s): M25.571 - Pain in right ankle and joints of right foot Category: Medical Qualifiers: Chronicity: acute Qualified Code(s): M25.571 - Pain in right ankle and joints of right foot (7) Nondisplaced fracture of cuboid bone of right foot, subsequent encounter for fracture with routine healing: Code(s): S92.214D - Nondisplaced fracture of cuboid bone of right foot, subsequent encounter for fracture with routine healing Category: Medical (8) Nondisplaced fracture of anterior process of right calcaneus, subsequent encounter for fracture with routine healing: Code(s): S92.024D - Nondisplaced fracture of anterior process of right calcaneus, subsequent encounter for fracture with routine healing Category: Medical Plan Patient was informed and verbally consented to the use of an ambient scribe for clinic note documentation during this visit. I discussed with the patient that the x-ray shows healing of the talar fracture, and there are no new fractures. We talked about transitioning from the scooter to walking in the CAMboot and starting physical therapy to aid recovery. I advised the patient to follow up in two weeks and to bring a sneaker for potential transition from the boot. - Transition from using the knee scooter to being WBAT in the CAMboot. - Advised patient to start using an assistive device while bearing weight, then transition to WBAT to the RLE without the use of the assistive device. - Initiate physical therapy to support rehabilitation and improve mobility. Provided referral. - Patient advised to bring a sneaker to the next visit for potential transition out of the CAMboot. - Continue Tylenol prn for pain. - Ordered right foot x-ray to be performed prior to next visit. - Patient is to keep the dressing clean, dry, and intact and may take the CAMboot off when resting. RTC in 2 weeks. Orders: Orders XR foot RT min 3V 05/03/25 M25.571 - Pain in right ankle and joints of right foot, M79.671 - Pain in right foot, S92.024D - Nondisplaced fracture of anterior process of right calcaneus, subsequent encounter for fracture with routine healing, S92.101A - Unspecified fracture of right talus, initial encounter for closed fracture, S92.214D - Nondisplaced fracture of cuboid bone of right foot, subsequent encounter for fracture with routine healing, S93.401A - Sprain of unspecified ligament of right ankle, initial encounter, S99.911A - Unspecified injury of right ankle, initial encounter, S99.921A - Unspecified injury of right foot, initial encounter PT Evaluation and Treatment 05/03/25 M25.571 - Pain in right ankle and joints of right foot, M79.671 - Pain in right foot, S92.101A - Unspecified fracture of right talus, initial encounter for closed fracture, S93.401A - Sprain of unspecified ligament of right ankle, initial encounter, S99.911A - Unspecified injury of right ankle, initial encounter, S99.921A - Unspecified injury of right foot, initial encounter AMB Podiatry Dressing 05/03/25 M25.571 - Pain in right ankle and joints of right foot, M79.671 - Pain in right foot, S92.024D - Nondisplaced fracture of anterior process of right calcaneus, subsequent encounter for fracture with routine healing, S92.101A - Unspecified fracture of right talus, initial encounter for closed fracture, S92.214D - Nondisplaced fracture of cuboid bone of right foot, subsequent encounter for fracture with routine healing, S93.401A - Sprain of unspecified ligament of right ankle, initial encounter, S99.911A - Unspecified injury of right ankle, initial encounter, S99.921A - Unspecified injury of right foot, initial encounter Coding Level of Care Code Est Pt Level 4 (24314) Diagnoses Fracture of right talus S92.101A Encounter type: initial encounter Fracture type: closed Talus location: neck Right ankle sprain S93.401A Encounter type: subsequent encounter Injury of right foot, initial encounter S99.921A Encounter type: initial encounter Right foot pain M79.671 Injury of right ankle, initial encounter S99.911A Encounter type: initial encounter Acute right ankle pain M25.571 Chronicity: acute Nondisplaced fracture of cuboid bone of right foot, subsequent encounter for fracture with routine healing S92.214D Nondisplaced fracture of anterior process of right calcaneus, subsequent encounter for fracture with routine healing S92.024D CPT Codes Podiatry Dressing - CPT: 92785 - Short leg splint ([id number]) Time Spent (min) 38
[2025-05-03 11:26] VITALS: BMI 29.9
--- OUTSIDE RECORDS SUMMARY | 2025-05-03 14:26 | XMS_ITS | Encounter Summary ---
Author Organization [employer] Address [address] [facility] 7t [place] [address] Care Team Providers Care Scientific Informatics Project Leader Name Role Phone Unavailable Primary Care Provider [...]
--- OUTSIDE RECORDS SUMMARY | 2025-05-03 14:26 | XMS_ITS | Patient Health Record ---
Author Organization [facility] Address [address] [place] [address] Care Team Providers Care Counterintelligence/Humint Specialist Name Role Phone ROSITA WILSON Primary [...] Notes Problem Irritable bowel syndrome with diarrhea (058354152) Irritable bowel syndrome with diarrhea (K58.0) Active confirmed Problem Gastroesophageal reflux disease without esophagitis (975599053) Gastroesophageal reflux disease without esophagitis (K21.9) Active confirmed Problem Colitis (10430435) Colitis (K52.9) Active confi rmed Vital Signs Temperature 97.9 degrees Fahrenheit 12/13/2024 Blood pressure diastolic 01 mm Hg 12/13/2024 Height 61 in 12/13/2024 Blood pressure systolic 001 mm Hg 12/13/2024 Weight 150.2 lbs 12/13/2024 BMI 28.38 kg/m2 12/13/2024 Encounters Encounter Location Date Provider Diagnosis [facility] [address] [place] [id number] 12/13/2024 Masoud Borja Jr Gastroesophageal reflux disease without esophagitis K21.9 and Irritable bowel syndrome with diarrhea K58.0 [facility] [address] [place] [phone] 09/04/2024 Masoud Borja Jr Assessments Encounter Date [...] Ruggiero Tayeelana chowteresa Guillen, 12/17/2025 10:00:00 AM, [address] [place] [address], [address], [place], [address], Insurance Providers Payer Name Payer Address Payer Phone Subscriber Number Group Number Insured Name Patient Relationship to Insured Coverage Start Date Coverage End Date MEDICARE OF [place] [address] [place] [address] [id number] SEJALMARGE Self - patient is the insured MEDICAID [facility] [address] [place] [address] [id number] MARGE POST Self - patient is the [...]
--- OUTSIDE RECORDS SUMMARY | 2025-05-03 14:26 | XMS_ITS | Clinical Summary ---
Author Organization [employer] Address [address] [facility] 7t [place] [address] Care Team Providers Care Roller Leveler Name Role Phone Unavailable Primary Care Provider [...]
--- OUTSIDE RECORDS SUMMARY | 2025-05-03 14:26 | XMS_ITS | Encounter Summary ---
Author Organization [employer] Address [address] [facility] 7t [place] [address] Care Team Providers Care Appraisal Technician Name Role Phone Unavailable Primary Care Provider Unavailabl e Reason for Visit * Reason Onset Date Comments Appointment 03/31/2023 Encounter Details Date Type Department Care Team ([facility] st Contact Info) Description 03/31/2023 Telephone C [facility] [address] [place] [address] NeriJose M hermosillo, DMD [address] [place] [address] Appointment Social History Tobacco Use Types Packs/Day [...]
== END 2025-05-03 11:49 | disposition home or self-care (01) ==
LOC: HO.HPODS 11:21
PROVIDERS: PCP Internal Medicine; Visit Provider Student in an Organized Health Care Education/Training Program
DX: S92.101A Unspecified fracture of right talus, initial encounter for closed fracture (principal); S93.401A Sprain of unspecified ligament of right ankle, initial encounter; S99.921A Unspecified injury of right foot, initial encounter; M79.671 Pain in right foot; S99.911A Unspecified injury of right ankle, initial encounter; M25.571 Pain in right ankle and joints of right foot; S92.214D Nondisplaced fracture of cuboid bone of right foot, subsequent encounter for fracture with routine healing; S92.024D Nondisplaced fracture of anterior process of right calcaneus, subsequent encounter for fracture with routine healing
CPT/HCPCS: 29515; 99214

== ENCOUNTER → 2025-05-03 11:20 | Outpatient (BNVA) | payer MEDICARE, MEDICAID, SELFPAY | PROVIDERS: PCP Internal Medicine; Visit Provider Student in an Organized Health Care Education/Training Program | DX: S92.101A Unspecified fracture of right talus, initial encounter for closed fracture (principal); S93.401A Sprain of unspecified ligament of right ankle, initial encounter; S99.921A Unspecified injury of right foot, initial encounter; S99.911A Unspecified injury of right ankle, initial encounter; S92.214D Nondisplaced fracture of cuboid bone of right foot, subsequent encounter for fracture with routine healing; S92.024D Nondisplaced fracture of anterior process of right calcaneus, subsequent encounter for fracture with routine healing; X58.XXXA Exposure to other specified factors, initial encounter; Y93.9 Activity, unspecified; Y92.9 Unspecified place or not applicable; Y99.9 Unspecified external cause status | CPT/HCPCS: 29515; 99212 ==

== ENCOUNTER 2025-05-23 10:48 | Outpatient (REF) | payer MEDICARE, MEDICAID, SELFPAY ==
--- OUTSIDE RECORDS SUMMARY | 2024-09-06 04:20 | XMS_ITS ---
Author Organization [facility] Address [address] [place] [address] Care Team Providers Care Public Service Representative Name Role Phone ROSITA WILSON Primary Care Provider Masoud Burton Jr Unavailable [phone] REASON FOR VISIT Patient presents today for gerd Encounters Encounter Location Date Provider Diagnosis [facility] [address] [place] [address] 09/06/2024 Masoud Borja Jr Plan Of Treatment Next Appt Details Provider Name:Masoud baldwin Jr, 12/17/2025 10:00:00 AM, [address], [address], [place], [address], Progress Notes * MARGE POST EDOB: [birth year] (64 yo F)Acc No.[id number]:09/06/2024 Progress Notes Patient: MARGE VERMA Provider: Nam Borja MD :1960 A ge:63 Y S ex:Female Date:09/06/2024 Address:[address] , [place] Pcp:ROSITA WILSON Subjective: * Chief Complaints: * P atient presents today for gerd * The named appointment provid er may or may not be the originator of this progress note, and it is not deemed complete until electronically signed by the appointment provider. Sign off status: Pending * Provider: Nam Borja MD Date: 09/06/2024 Generated for Simon brewer/Sushant/Sharonsmitting on: 1 07/24/2024 12:37 PM EST
--- NOTE | ~2025-05-23 | XR_ITS ---
EXAMINATION: XR FOOT, RIGHT CLINICAL INFORMATION: Avulsion fracture dorsal talar neck and fracture plantar aspect of cuboid at the superficial margin of the calcaneocuboid joint S92.024D - Nondisplaced fracture of anterior process of right calcaneus,... COMPARISON: March 31, 2025 and April 30, 2025 x-ray [address] CT from 04/07/2025 TECHNIQUE: AP, lateral, and oblique views of the right foot. FINDINGS: Again noted is hallux valgus deformity. Fracture line remains minimally visible related to avulsion of the dorsal talar head neck junction. On the oblique view, there is a small bony fragment superficial to the proximal end of the cuboid, lateral to the calcaneocuboid joint that is probably related to a small os peroneum. However, on the AP view, small avulsed cortical fragment is visible superficial to the proximal end of cuboid. Fragment appears smaller than on the prior examination consistent with changes related to healing Anterior process of talus is not well demonstrated XR/XR foot RT min 3V IMPRESSION: Evidence of healing of dorsal talar and neck junction avulsion fracture and cuboid fracture. Anterior process of calcaneus is not well-demonstrated due to overlapping complex bony structures in the midfoot. Electronically signed by: Alexi Tran MD 05/23/2025 01:22 PM JOSUE CLARK
--- OUTSIDE RECORDS SUMMARY | 2025-05-23 12:37 | XMS_ITS | Clinical Summary ---
Author Organization [employer] Address [address] [facility] 7t [place] [address] Care Team Providers Care Spa Receptionist Name Role Phone Unavailable Primary Care Provider [...] Most Recently Relevant to Health Maintenance [facility]
--- OUTSIDE RECORDS SUMMARY | 2025-05-23 12:37 | XMS_ITS | Patient Health Record ---
Author Organization [facility] Address [address] [place] [address] Care Team Providers Care Customer Specialist Name Role Phone ROSITA WILSON Primary Care Provider Masoud Burton Jr Unavailable Allergies Allergen (clinical drug ingredient) Drug/Non Drug Allergy documented on EMR Reaction Allergy Type Onset Date Status metronidazole Metronidazole (uncoded) Unknown Allergy Active gabapentin Gabapentin Unknown Drug Allergy Activ e Reason For Referral No Information Medications Medication SIG (Take, Route, Frequency, Duration) Notes Start Date End Date Status ProAir HFA Active Vitamin D-3 25 MCG (1000 UT) Capsule 1 capsule Orally Once a day Active Dicyclomine HCl 20 MG Tablet TAKE 1 TABLET BY MOUTH 2 TO 4 TIMES A DAY; Duration: 90 Active Atorvastatin Calcium 40 MG Tablet 1 tablet Orally Once a day Active Synthroid 200 MCG Tablet TAKE 1 TABLET B Y MOUTH ONCE A DAY EXCEPT SUNDAYS Oral; Duration: 84 Active Omeprazole 40 MG Capsule Delayed Release TAKE 1 CAPSULE BY MOUTH EVERY DAY 30 MINUTES BEFORE MORNING MEAL; Duration: 90 Active Immunizations Vaccine Route Administration Date Status Comme nts Influenza Unknown 03/29/2019 Administered Influenza Unknown 09/07/2022 Refused Influenza Unknown 03/09/2023 Administered Influenza Unknown 12/13/2024 Refused Social History Tobacco Use: Social History Observation Description Date Details (start date - stop date) Never Smoker NA - NA Social History Drugs/Alcohol: Social Info Question Answer Notes Alcohol Screen Did you have a drink containing alcohol in the past year? Yes How often did you have a drink containing alcohol in the past year? Monthly or less (1 point) How many drinks did you have on a typical day when you were drinking in the past year? 1 or 2 drinks (0 point) How often did you have 6 or more drinks on one occasion in the past year? Never (0 point) Points 1 Interpretation Negative Tobacco Use: Social Info Question Answer Notes Tobacco Use/Smoking Patient is a nonsmoker Additional Details Category Social Info Options Details Miscellaneous: Marital status: Occupation: unemployed - dis abled Problems Problem Type SNOMED Code ICD Code Onset Dates Problem Status W/U Status Risk Notes Problem Irritable bowel syndrome with diarrhea (488653538) Irritable bowel syndrome with diarrhea (K58.0) Active confirmed Problem Gastroesophageal reflux disease without esophagitis (407255304) Gastroesophageal reflux disease without esophagitis (K21.9) Active confirmed Problem Colitis (72727868) Colitis (K52.9) Active confi rmed Vital Signs Temperature 97.9 degrees Fahrenheit 12/13/2024 Blood pressure diastolic 01 mm Hg 12/13/2024 Height 61 in 12/13/2024 Blood pressure systolic 001 mm Hg 12/13/2024 Weight 150.2 lbs 12/13/2024 BMI 28.38 kg/m2 12/13/2024 Encounters Encounter Location Date Provider Diagnosis [facility] [address] [place] [phone] 12/13/2024 Masoud Borja Jr Gastroesophageal reflux disease without esophagitis K21.9 and Irritable bowel syndrome with diarrhea K58.0 [facility] [address] [place] [phone] 09/04/2024 Masoud Borja Jr Assessments Encounter Date [...] COLONOSCOPY 02/21/2020 Next Appt Details Provider Name:Masoud chowteresa Guillen, 12/17/2025 10:00:00 AM, [address], [address], [place], [address], Insurance Providers Payer Name Payer Address Payer Phone Subscriber Number Group Number Insured Name Patient Relationship to Insured Coverage Start Date Coverage End Date MEDICARE OF [place] [address] KIERSTEN ALONZO MAURICE [id number] SEJAL MARGE Self - patient is the insured MEDICAID OF [facility] [address] [place] [phone] [id number] MARGE POST Self - patient is the insured Medical (General) History Medical History History ICD Code Colonoscopy 03/08/20, normal sigmoid biopsies. Hyperplastic polyp 10 year recall Gastroesophageal reflux dise ase, EGD 03/08/20, no H. pylori or Zhao's esophagus. thyroidectomy/Angle's thyroiditis cholecystectomy appendectomy headaches De Quervain's tenosynovitis left and rig ht with cyst on the right Cataract repair 09/12 Surgical History Surgery Date(Month/Year) Appendectomy Cholecystectomy Tubal ligation
--- OUTSIDE RECORDS SUMMARY | 2025-05-23 12:37 | XMS_ITS | Encounter Summary ---
Author Organization [email or web address] Address [address] [place] [address] Care Team Providers Care Security Rover Name Role Phone Unavailable Primary Care Provider Unavailabl e Reason for Visit * Reason Onset Date Comments Appointment 03/31/2023 Encounter Details Date Type Department Care Team ([facility] st Contact Info) Description 03/31/2023 Telephone [facility] [address] [place] [address] NeriJose M hermosillo, DMD [address] [place] [address] Appointment Social History Tobacco Use Types Packs/Day [...]
--- OUTSIDE RECORDS SUMMARY | 2025-05-23 12:37 | XMS_ITS | Encounter Summary ---
Author Organization [email or web address] Address [address] [facility] 7[address] [place] [address] Care Team Providers Care Hvac Mechanic Name Role Phone Unavailable Primary Care Provider [...]
== END 2025-05-23 10:49 | disposition home or self-care (01) ==
LOC: HO.XRAY 10:48
PROVIDERS: PCP Internal Medicine; Visit Provider Student in an Organized Health Care Education/Training Program
DX: S92.024D Nondisplaced fracture of anterior process of right calcaneus, subsequent encounter for fracture with routine healing (principal); S92.214D Nondisplaced fracture of cuboid bone of right foot, subsequent encounter for fracture with routine healing; S92.101D Unspecified fracture of right talus, subsequent encounter for fracture with routine healing; S93.401A Sprain of unspecified ligament of right ankle, initial encounter; M25.571 Pain in right ankle and joints of right foot
CPT/HCPCS: 73630

== ENCOUNTER → 2025-05-23 10:52 | Outpatient (BNV) | payer MEDICARE, MEDICAID, SELFPAY | PROVIDERS: PCP Internal Medicine; Visit Provider Radiology Diagnostic Radiology | DX: S92.024D Nondisplaced fracture of anterior process of right calcaneus, subsequent encounter for fracture with routine healing (principal) | CPT/HCPCS: 73630 ==

== ENCOUNTER 2025-05-24 11:14 | Outpatient (AMB) | payer MEDICARE, MEDICAID, SELFPAY ==
[2025-05-24 11:30] VITALS: BMI 29.9
--- NOTE | 2025-05-24 11:30 | A.OFFVIS_ITS ---
Vital Signs 05/24/25 11:30 Height 5 ft 1 in Weight 158 lb BMI 29.9 Intake Visit Reasons: f/u xrays; talus fx Intake Note: Bela is a 64 year old female who presents today for a follow up on her talus fracture. At her last visit she was advised to transitioning from the scooter to walking in the CAMboot and starting physical therapy to aid recovery. X rays were ordered and results are all set in patients chart. Patient reports she experiences occasional pain in her right heel and the lateral aspect of her foot However she has still seen an improvement. Allergies gabapentin (GABAPENTIN) Allergy (Severe, Verified 05/24/25 11:31) CHEST PAIN meloxicam Allergy (Unknown, Verified 05/24/25 11:31) Unknown From FLAGYL Allergy (Intermediate, Uncoded 04/06/25 09:58) GI UPSET HPI Comments Details: The patient is a 64 year old female presenting for a follow-up visit for right foot avulsion fractures. Since the last visit patient states she has tried to be weight-bearing as tolerated in the cam boot and has transitioned out of using an assistive device. She reports that recently her heel is very sore and she still has some tenderness around the avulsion fracture sites. She notes the heel pain is worse when she is on her feet for too long. She reports experiencing low back pain due to compensation from her gait abnormality. The patient also feels her foot is weak and reports feeling off-balance. She uses a walker in the house and a scooter for appointments as needed. She denies any new pedal concerns. She denies any new pedal injuries. [facility] Medical History Nondisplaced fracture of anterior process of right calcaneus, subsequent encounter for fracture with routine healing Nondisplaced fracture of cuboid bone of right foot, subsequent encounter for fracture with routine healing Right ankle pain Right ankle injury Right foot pain Right foot injury Right ankle sprain Fracture of right talus ELINOR (obstructive sleep apnea) IBS (irritable bowel syndrome) Asthma Colonic polyp Degenerative disc disease Hypothyroidism Hypercholesterolemia Surgical History History of colonoscopy (~03/08/20) History of foot surgery History of surgery on wrist History of bilateral tubal ligation History of cholecystectomy History of appendectomy History of thyroidectomy Family History (Updated 05/02/25 @ 10:37 by Caro Sanchez MA) Father CAD (coronary artery disease) Mother COPD (chronic obstructive pulmonary disease) Sister Breast cancer, Onset Age: 57 Maternal Grandmother Stroke Aneurysm Paternal Uncle Colon cancer Social History Housing: House Alcohol intake: never Patient Tobacco Use Status: Never used Tobacco e-Cigarette/Vaping Use: Never Used Substance Use Type: Marijuana service: No Current occupational status: disabled 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 All systems reviewed & are unremarkable except as noted in HPI and below Physical Exam Vital Signs: BMI result Body Mass Index 29.9 Extrem Other: Right lower extremity focused physical exam: Derm: Resolution of ecchymosis noted to the foot and lateral aspect of the ankle. No open lesions abrasions or wounds noted. Skin supple and turgor within normal limits. No clinical signs of infection. Vascular: DP/PT pulses palpable. Capillary refill time less than 3 seconds. Temperature gradient warm to warm. Pedal hair absent. No varicosities noted. Significant reduction in edema noted to the foot and ankle. Neuro: Protective sensation is grossly intact. MSK: No pain on palpation to the foot in the area of the TNJ and dorsal midfoot. Mild pain on palpation to the lateral aspect of the midfoot. No pain on palpation to the ankle . No fluctuance or crepitus noted. No pain on palpation to the proximal aspect of the fibula. Range of motion of the forefoot hindfoot and ankle increased in comparison to last visit. Antalgic gait noted. Results Reviewed Results Reviewed: Podiatry read of Right ankle xray (05/23/25): Continued Healing noted to the avulsion fracture of the head/neck of the talus and cuboid with increased bone consolidation and bone callus formation. Bone spur noted to the plantar and posterior aspect of the calcaneus. No new acute fractures or dislocations noted. Right foot xray (05/23/25): FINDINGS: Again noted is hallux valgus deformity. Fracture line remains minimally visible related to avulsion of the dorsal talar head neck junction. On the oblique view, there is a small bony fragment superficial to the proximal end of the cuboid, lateral to the calcaneocuboid joint that is probably related to a small os peroneum. However, on the AP view, small avulsed cortical fragment is visible superficial to the proximal end of cuboid. Fragment appears smaller than on the prior examination consistent with changes related to healing Anterior process of talus is not well demonstrated IMPRESSION: Evidence of healing of dorsal talar and neck junction avulsion fracture and cuboid fracture. Anterior process of calcaneus is not well-demonstrated due to overlapping complex bony structures in the midfoot. Podiatry read of Right ankle xray (04/30/25): Healing noted to the avulsion fracture of the head/neck of the talus with increased bone consolidation and bone callus formation. Bone spur noted to the plantar and posterior aspect of the calcaneus. No new acute fractures or dislocations noted. Right foot xray (04/30/25): FINDINGS: Hallux valgus deformity is present. No fracture is apparent. There is no joint diastases or step-off. Small calcaneal spurs are present. IMPRESSION: Hallux valgus deformity. Small calcaneal spur. Podiatry Read of Right Foot CT (04/07/25): Avulsion fracture noted to the talar head, cuboid, and calcaneal anterior process. Os peroneum noted. Right Foot CT (04/07/25): Findings: The minimally displaced capsular avulsion fracture along the dorsal talar head is reidentified, measuring up to 7 x 2 mm. Tiny chip fracture at the proximal lateral cuboid. Nondisplaced fracture involving the calcaneal anterior process. Tiny os peroneum. Minimal talocrural osteoarthritis without tibiotalar joint effusion. Mild enthesopathic spurring at the base/tuberosity of the 5th metatarsal. Posterior and plantar calcaneal enthesophytes. IMPRESSION: 1. Minimally displaced capsular avulsion fracture along the dorsal aspect of the talar head. 2. Tiny chip fracture at the proximal lateral cuboid. 3. Nondisplaced fracture involving the calcaneal anterior process. Podiatry Read of Right Tib/Fib xray (04/07/25): No acute fractures or dislocations noted. Right Tib/Fib xray (04/07/25): FINDINGS: AP and lateral views of the right tibia and fibula are submitted. Osseous mineralization is normal. There is no fracture or dislocation. The visualized knee and ankle joint spaces are preserved. The soft tissues are unremarkable. IMPRESSION: Unremarkable examination of the right tibia and fibula. Podiatry read of Right foot xray (03/31/25): Fracture noted to the head/neck of the talus with a mildly displace avulsion fragment noted. Bone spur noted to the plantar and posterior aspect of the calcaneus. Met adductus noted. No acute dislocations noted. Podiatry read of Right ankle xray (03/31/25): Fracture noted to the head/neck of the talus with a mildly displace avulsion fragment noted. Bone spur noted to the plantar and posterior aspect of the calcaneus. No acute dislocations noted. Right foot xray (03/31/25): Findings: Avulsion fracture talar beak. No periostitis or bony destruction. Joint intervals are preserved. No marginal erosions or overhanging osteophytes. Calcaneus and subtalar joint intact. No significant arthritic change. Posterior and plantar calcaneal enthesophyte. Normal bone mineralization and soft tissues. Normal pre-Achilles fat pad. No radiopaque foreign body. Impression: 1. Avulsion fracture talar beak. Right ankle xray (03/31/25): Findings: Avulsion fracture versus spur talar beak correlate with palpation. Ankle mortise intact. Normal plafond. No osteochondral lesions. Calcaneus and subtalar joint intact. No significant arthritic change. Posterior and plantar calcaneal enthesophyte Soft tissue swelling laterally. Normal pre-Achilles fat pad. No radiopaque foreign body. Impression: 1. Suspect avulsion fracture rather than spur talar beak correlate with palpation. Soft tissue swelling lateral malleolus. Ankle mortise intact. Assessment & Plan Assessment & Plan (1) Fracture of right talus: Code(s): S92.101A - Unspecified fracture of right talus, initial encounter for closed fracture Category: Medical Qualifiers: Encounter type: initial encounter Fracture type: closed Talus location: neck (2) Right ankle sprain: Code(s): S93.401A - Sprain of unspecified ligament of right ankle, initial encounter Category: Medical Qualifiers: Encounter type: subsequent encounter (3) Right foot injury: Code(s): S99.921A - Unspecified injury of right foot, initial encounter Category: Medical Qualifiers: Encounter type: initial encounter Qualified Code(s): S99.921A - Unspecified injury of right foot, initial encounter (4) Right foot pain: Code(s): M79.671 - Pain in right foot Category: Medical (5) Right ankle injury: Code(s): S99.911A - Unspecified injury of right ankle, initial encounter Category: Medical Qualifiers: Encounter type: initial encounter Qualified Code(s): S99.911A - Unspecified injury of right ankle, initial encounter (6) Right ankle pain: Code(s): M25.571 - Pain in right ankle and joints of right foot Category: Medical Qualifiers: Chronicity: acute Qualified Code(s): M25.571 - Pain in right ankle and joints of right foot (7) Nondisplaced fracture of cuboid bone of right foot, subsequent encounter for fracture with routine healing: Code(s): S92.214D - Nondisplaced fracture of cuboid bone of right foot, subsequent encounter for fracture with routine healing Category: Medical (8) Nondisplaced fracture of anterior process of right calcaneus, subsequent encounter for fracture with routine healing: Code(s): S92.024D - Nondisplaced fracture of anterior process of right calcaneus, subsequent encounter for fracture with routine healing Category: Medical Plan Patient was informed and verbally consented to the use of an ambient scribe for clinic note documentation during this visit. I advised the patient that she is ready to transition from the cam boot to supportive sneakers. We discussed that her current heel pain may improve with the change in footwear, and if not, we can consider an insert. I recommended she use an Sam bandage for compression and her walker as needed for balance. We discussed the need for physical therapy to address weakness and her plan to s chedule it. I cleared her to start driving by the weekend for short distances and scheduled a follow-up visit in 6 weeks to monitor her progress. - The patient will transition being weight-bearing as tolerated in the cam boot to weight-bearing as tolerated in supportive sneakers. - An Sam bandage was provided for compression. - Continue rice protocol. - The patient is advised to continue using her walker as needed for balance. - Initiate physical therapy. - If heel pain persists after transitioning to sneakers, an insert will be considered. - The patient is cleared to resume driving for short distances by the weekend. - Continue Tylenol prn for pain. RTC in 6 weeks. Coding Level of Care Code Est Pt Level 4 (31626) Diagnoses Fracture of right talus S92.101A Encounter type: initial encounter Fracture type: closed Talus location: neck Right ankle sprain S93.401A Encounter type: subsequent encounter Injury of right foot, initial encounter S99.921A Encounter type: initial encounter Right foot pain M79.671 Injury of right ankle, initial encounter S99.911A Encounter type: initial encounter Acute right ankle pain M25.571 Chronicity: acute Nondisplaced fracture of cuboid bone of right foot, subsequent encounter for fracture with routine healing S92.214D Nondisplaced fracture of anterior process of right calcaneus, subsequent encounter for fracture with routine healing S92.024D Time Spent (min) 32
== END 2025-05-24 11:42 | disposition home or self-care (01) ==
LOC: HO.HPODS 11:14
PROVIDERS: PCP Internal Medicine; Visit Provider Student in an Organized Health Care Education/Training Program
DX: S92.101A Unspecified fracture of right talus, initial encounter for closed fracture (principal); S93.401A Sprain of unspecified ligament of right ankle, initial encounter; S99.921A Unspecified injury of right foot, initial encounter; M79.671 Pain in right foot; S99.911A Unspecified injury of right ankle, initial encounter; M25.571 Pain in right ankle and joints of right foot; S92.214D Nondisplaced fracture of cuboid bone of right foot, subsequent encounter for fracture with routine healing; S92.024D Nondisplaced fracture of anterior process of right calcaneus, subsequent encounter for fracture with routine healing
CPT/HCPCS: 99214

== ENCOUNTER → 2025-05-24 11:14 | Outpatient (BNVA) | payer MEDICARE, MEDICAID, SELFPAY | PROVIDERS: PCP Internal Medicine; Visit Provider Student in an Organized Health Care Education/Training Program | DX: S92.101A Unspecified fracture of right talus, initial encounter for closed fracture (principal); S92.401A Displaced unspecified fracture of right great toe, initial encounter for closed fracture; S92.214D Nondisplaced fracture of cuboid bone of right foot, subsequent encounter for fracture with routine healing; S92.024D Nondisplaced fracture of anterior process of right calcaneus, subsequent encounter for fracture with routine healing; X58.XXXD Exposure to other specified factors, subsequent encounter; X58.XXXA Exposure to other specified factors, initial encounter; Y93.9 Activity, unspecified; Y92.9 Unspecified place or not applicable; Y99.9 Unspecified external cause status | CPT/HCPCS: 99212 ==

== ENCOUNTER 2025-06-11 15:45 | Outpatient (AMB) | payer MEDICARE, MEDICAID, SELFPAY ==
--- OUTSIDE RECORDS SUMMARY | 2024-09-06 04:20 | XMS_ITS ---
Author Organization [facility] Address [address] [place] [address] Care Team Providers Care Alley Worker Name Role Phone ROSITA WILSON Primary Care Provider Masoud Burton Jr Unavailable REASON FOR VISIT Patient presents today for gerd Encounters Encounter Location Date Provider Diagnosis [facility] [address] [place] [address] 09/06/2024 Masoud Borja Jr Plan Of Treatment Next Appt Details Provider Name:Masoud baldwin Jr, 12/17/2025 10:00:00 AM, [address], [address], [place], [address], Progress Notes * MARGE POST EDOB: [birth year] (64 yo F)Acc No.[id number]:09/06/2024 Progress Notes Patient: MARGE VERMA Provider: Nam Borja MD :1960 A ge:63 Y S ex:Female Date:09/06/2024 Address:[address] , [place] Pcp:ROSITA WILSON Subjective: * Chief Complaints: * P atient presents today for gerd * The named appointment provid er may or may not be the originator of this progress note, and it is not deemed complete until electronically signed by the appointment provider. Sign off status: Pending * Provider: Nam Borja MD Date: 0 09/06/2024 Generated for Simon brewer/Sushant/Sharonsmitting on: 1 08/12/2024 06:39 PM EST
--- OUTSIDE RECORDS SUMMARY | 2025-06-11 18:39 | XMS_ITS | Encounter Summary ---
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
--- OUTSIDE RECORDS SUMMARY | 2025-06-11 18:39 | XMS_ITS | Patient Health Record ---
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 Name Role Phone ROSITA WILSON Primary Care Provider aMsoud Burton Jr Unavailable Allergies Allergen (clinical drug [...] Notes Problem Irritable bowel syndrome with diarrhea (508730861) Irritable bowel syndrome with diarrhea (K58.0) Active confirmed Problem Gastroesophageal reflux disease without esophagitis (753901585) Gastroesophageal reflux disease without esophagitis (K21.9) Active confirmed Problem Colitis (34493348) Colitis (K52.9) Active confi rmed Vital Signs Temperature 97.9 degrees Fahrenheit 12/13/2024 Blood pressure diastolic 01 mm Hg 12/13/2024 Height 61 in 12/13/2024 Blood pressure systolic 001 mm Hg 12/13/2024 Weight 150.2 lbs 12/13/2024 BMI 28.38 kg/m2 12/13/2024 Encounters Encounter Location Date Provider Diagnosis [facility] [address] [place] [phone] 12/13/2024 Masoud Borja Jr Gastroesophageal reflux disease without esophagitis K21.9 and Irritable bowel syndrome with diarrhea K58.0 [facility] [address] [place] [phone] 09/04/2024 Masoud Borja Jr Assessments Encounter Date [...] Name:Masoud chowteresa Guillen, 12/17/2025 10:00:00 AM, [address], [address], [place], [address], Insurance Providers Payer Name Payer Address Payer Phone Subscriber Number Group Number Insured Name Patient Relationship to Insured Coverage Start Date Coverage End Date MEDICARE OF [place] [address] KIERSTEN ALONZO MAURICE [id number] [phone] [id number] SEJAL MARGE Self - patient is the insured MEDICAID OF [facility] [address] [place] [phone] [phone] [id number] MARGE POST Self - patient is the [...]
--- OUTSIDE RECORDS SUMMARY | 2025-06-11 18:39 | XMS_ITS | Encounter Summary ---
Author Organization [employer] Address [address] [facility] [address] [place] [address] Care Team Providers Care Cmo Name Role Phone Unavailable Primary Care Provider [...]
--- OUTSIDE RECORDS SUMMARY | 2025-06-11 18:39 | XMS_ITS | Clinical Summary ---
Author Organization [employer] Address [address] [facility] [address] [place] [address] Care Team Providers Care Barrel Ribs Solderer Name Role Phone Unavailable Primary Care Provider [...] Most Recently Relevant to Health Maintenance [facility] ST[facility] ADULT
== END 2025-06-11 15:46 | disposition home or self-care (01) ==
LOC: HO.HMGAL 15:45
PROVIDERS: PCP Internal Medicine; Visit Provider Registered Nurse Emergency
DX: J30.89 Other allergic rhinitis (principal)
CPT/HCPCS: 95117; 95165